=== PATIENT | male | born 1945 | race Caucasian/White ===

== ENCOUNTER 2020-04-11 02:08 | Observation (INO) | payer MEDICARE, OTHER ==
[~2020-04-11] VITALS: Ht 180.3 cm; Wt 98.0 kg
[~2020-04-11 02:08] MED LIST: AMLODIPINE BESYL5 MG PO; ASPIR-LOW81 MG PO; ATENOLOL-CHLOR1 EAC1 PO; BENAZEPRIL HCL40 MG PO; BETAMETHASONE D15 GM TOP; HUMIRA40 MG/0.8 IM; IBUPROFEN400 MG PO; LUPRON IM; OMEPRAZOLE40 MG PO; OTEZLA PO
--- OUTSIDE RECORDS SUMMARY | 2020-04-11 02:10 | XMS REPORT | Summary of Care ---
Author Author [facility] Organization [facility] Address Unknown Phone Unavailable Encounter HQ Raheem(FIN) [id number] Date(s): 10/15/18 - 10/15/18 [facility] [address] [place] [address]- Discharge Disposition: Home or Self Care Attending Physician: Kathe De León MD Vital Signs Most recent to 1 oldest [Reference Range]: Height 180.34 cm (10/15/18 10:04 AM) Temperature Oral 97.7 DegF [96.4-99.1 DegF] (10/15/18 10:04 AM) Blood Pressure 124/64 mmHg [90-140/60-90 mmHg] (10/15/18 10:04 AM) Respiratory Rate 14 BRMIN [14-20 BRMIN] (10/15/18 10:04 AM) Peripheral Pulse 65 bpm Rate [60-100 bpm] (10/15/18 10:04 AM) Weight 102.386 kg (10/15/18 10:04 AM) Body Mass Index 31.48 m2 (10/15/18 10:04 AM) Problem List Condition Effective Dates Status Health Status Informan t Benign Active hypertension(Confirm ed)1, 2 Body mass index 30+ 12/22/13 Active - obesity3, 4 Primary Active osteoarthritis of left knee(Confirmed) Diabetes Active mellitus(Confirmed) SOB (shortness of Active breath)(Confirmed) GERD Active (gastroesophageal reflux disease)(Confirmed) Hard of Active hearing(Confirmed) History of prostate Active cancer(Confirmed) History of left knee Active replacement(Confirme d) Right knee Active pain(Confirmed) Hyperlipemia, Active mixed(Confirmed) Obesity(Confirmed)5, Active 6 Prostate Active carcinoma(Confirmed) Psoriasis(Confirmed) Active 7, 8 RUQ abdominal Active pain(Confirmed) Rupture of rotator Active cuff of shoulder(Confirmed)9 Shoulder Active pain(Confirmed)10 Weight Active loss(Confirmed) 1Data migrated from [employer] on 04/05/15. 2Data migrated from [employer] on 04/05/15. 3Data migrated from [employer] on 04/05/15. 4Data migrated from [employer] on 04/05/15. 5Data migrated from [employer] on 04/05/15. 6Data migrated from [employer] on 04/05/15. 7Data migrated from [employer] on 04/05/15. 8Data migrated from [employer] on 04/05/15. 9right shoulder 10right Allergies, Adverse Reactions, Alerts Substance Reaction Severity Status acetaminophen-hydrocodone hallucinations Active NKFA Active Medications No Known Medications Results No data available for this section Immunizations Given and Recorded Vaccine Date Status Refusal Reason influenza virus vaccine, inactivated1 07/18/18 Given influenza virus vaccine, inactivated2 06/25/17 Given influenza virus vaccine, inactivated 08/25/15 G iven influenza virus vaccine, inactivated3 07/20/14 Given influenza virus vaccine, inactivated4 07/20/14 Given pneumococcal 13-valent vaccine5 06/25/17 Given Hx influenza vaccine-unspecified6 09/16/16 Torsten rded Hx pneumococcal vaccine 11/10/12 Recorded 1Result Comment: Patient waited 15 minutes, no allergic reaction noted. 2Result Comment: Patient waited 15 minutes after vaccine was administered, no allergic reaction noted. 3Result Comment: done. Migrated from OBS ; Data migrated from [employer] on 06/10/2015. 4Result Comment: fluzone high dose [[id number]]. Migrated from OBS ; Data migrated from [employer] on 06/10/2015. 5Result Comment: Patient waited 15 minutes after vaccine was administered, no allergic reaction noted. [facility] Procedures Procedure Date Related Diagnosis Body Site Status Procedure on prostate 2010 Completed Biopsy of prostate Completed Cataract surgery1 Completed Cryotherapy2 Completed Procedure on knee3, 4 Completed 1rt eye 2prostate 3left knee 4surgery 2017 Social History Social History Type Response Substance Abuse Use: None. Exercise Exercise frequency: Daily. Exercise type: Walking. Employment/School Status: Retired. Alcohol Current, Type Beer. Freque ncy: 1-2 times per week.1 Smoking Status Former smoker; Exposure to Tobacco Smoke None; Cigarette Smoking Last 365 Days No; Reg Smoking Cessation Counseli ng No2 entered on: 04/24/19 11 beer daily 2started smoking age 15 year quit 1992 used to smoke 1 pack/ day Assessment and Plan No data available for this section
--- OUTSIDE RECORDS SUMMARY | 2020-04-11 02:10 | XMS REPORT | Summary of Care ---
Author Author [facility] Organization [facility] Address Unknown Phone Unavailable Encounter AYDIN Maciel(FIN) [id number] Date(s): 10/11/17 - 10/11/17 [facility] [address], [address] [place], [place] [id number]- [phone] Discharge Disposition: Home or Self Care Attending Physician: Kathe De León MD Vital Signs Most recent to 1 oldest [Reference Range]: Height 180.34 cm (10/11/17 9:34 AM) Temperature Oral 97.5 DegF [96.4-99.1 DegF] (10/11/17 9:34 AM) Blood Pressure 103/69 mmHg [90-140/60-90 mmHg] (10/11/17 9:34 AM) Respiratory Rate 14 BRMIN [14-20 BRMIN] (10/11/17 9:34 AM) Peripheral Pulse 70 bpm Rate [60-100 bpm] (10/11/17 9:34 AM) Weight 100.057 kg (10/11/17 9:34 AM) Body Mass Index 30.77 m2 (10/11/17 9:34 AM) Problem List Condition Effective Dates Status Health Status Informan t Arthritis(Confirmed) Active Benign Active hypertension(Confirm ed)1, 2 Body mass index 30+ 2/ Active - obesity3, 4 Primary Active osteoarthritis of left knee(Confirmed) Diabetes Active mellitus(Confirmed) GERD Active (gastroesophageal reflux disease)(Confirmed) Hard of Active hearing(Confirmed) History of prostate Active cancer(Confirmed) History of left knee Active replacement(Confirme d) Hyperlipemia, Active mixed(Confirmed) Obesity(Confirmed)5, Active 6 Prostate [...] Substance Reaction Severity Status acetaminophen-hydrocodone hallucinations Active Medications Otezla 30 mg oral tablet 30 mg = 1 tab, PO, BID, 0 Refill(s) Start Date: 10/11/17 Status: Ordered Pepcid AC 10 mg oral tablet, chewable 10 mg = 1 tab, PO, TID, 0 Refill(s) Start Date: 10/11/17 Status: Ordered tramadol 50 mg oral tablet 50 mg = 1 tab, PO, BID, PRN pain, # 60 tab, 0 Refill(s) Start Date: 10/11/17 Stop Date: 10/12/18 Status: Ordered Results No data available for this section Immunizations Given and Recorded Vaccine Date Status Refusal Reason pneumococcal 13-valent vaccine1 06/25/17 Given influenza virus vaccine, inactivated2 06/25/17 Given influenza virus vaccine, inactivated 08/25/15 G iven influenza virus vaccine, inactivated3 07/20/14 Given influenza virus vaccine, inactivated4 07/20/14 Given Hx influenza vaccine-unspecified5 09/16/16 Torsten rded Hx pneumococcal vaccine 11/10/12 Recorded 1Result Comment: Patient waited 15 minutes after vaccine was administered, no allergic reaction noted. 2Result Comment: Patient waited 15 minutes after vaccine was administered, no allergic reaction noted. 3Result Comment: done. Migrated from OBS ; Data migrated from [employer] on 06/10/2015. 4Result Comment: fluzone high dose [[id number]]. Migrated from OBS ; Data migrated from [employer] on 06/10/2015. [facility] Procedures Procedure Date Related Diagnosis Body Site Procedure on prostate 2011 Biopsy of prostate Cataract surgery1 Cryotherapy2 Procedure on knee3, 4 1rt eye 2prostate 3left knee 4surgery 2017 Social History Social History Type Response Substance Abuse Use: None. Exercise Exercise duration: 0. Employment/School Status: Retired. Alcohol Past, Type Beer. Frequency : Daily.1 Smoking Status Former smoker; Exposure to Tobacco Smoke None; Cigarette Smoking Last 365 Days No; Reg Smoking Cessation Counseli ng No2 11 beer daily 2started smoking age 15 year quit 1992 used to smoke 1 pack/ day Assessment and Plan No data available for this section
--- OUTSIDE RECORDS SUMMARY | 2020-04-11 02:10 | XMS REPORT | Summary of Care ---
Author Author [facility] Organization [facility] Address Unknown Phone Unavailable Encounter HQ Raheem(FIN) [id number] Date(s): 01/09/18 - 01/09/18 [facility] [address] [place] [address] [phone] Discharge Disposition: Home or Self Care Attending Physician: Kathe De León MD Vital Signs Most recent to 1 oldest [Reference Range]: Height 180.34 cm (01/09/18 8:55 AM) Temperature Oral 97.1 DegF [96.4-99.1 DegF] (01/09/18 8:55 AM) Blood Pressure 87/59 mmHg [90-140/60-90 mmHg] *LOW* (01/09/18 8:55 AM) Respiratory Rate 14 BRMIN [14-20 BRMIN] (01/09/18 8:55 AM) Peripheral Pulse 75 bpm Rate [60-100 bpm] (01/09/18 8:55 AM) Weight 99.318 kg (01/09/18 8:55 AM) Body Mass Index 30.54 m2 (01/09/18 8:55 AM) Problem List Condition Effective Dates Status [...] Reaction Severity Status acetaminophen-hydrocodone hallucinations Active Medications No Known Medications Results No [...] Migrated from OBS ; Data migrated from [employer] on 06/10/2015. 4Result Comment: fluzone high dose [[id number]]. Migrated from OBS ; Data migrated from [employer] on 06/10/2015. 5Location History: [facility] Procedures Procedure Date Related Diagnosis Body Site Status Procedure on prostate 2010 Completed Biopsy of prostate Completed Cataract surgery1 Completed Cryotherapy2 Completed Procedure on knee3, 4 Completed 1rt eye 2prostate 3left knee 4surgery 2017 Social History Social History Type Response Substance Abuse Use: None. Exercise Exercise frequency: Daily. Exercise type: Walking. Employment/School Status: Retired. Alcohol Current, Type Beer. Freque ncy: Daily.1 Smoking Status Former smoker; Exposure to Tobacco Smoke None; Cigarette Smoking Last 365 Days No; Reg Smoking Cessation Counseli ng No2 entered on: 04/11/18 11 beer daily 2started smoking age 15 year quit 1992 used to smoke 1 pack/ day Assessment and Plan No data available for this section
--- OUTSIDE RECORDS SUMMARY | 2020-04-11 02:10 | XMS REPORT | Summary of Care ---
Author Author [facility] Address Unknown Phone Unavailable Encounter AYDIN Maciel(FIN) [id number] Date(s): 10/15/17 - 11/13/17 [facility] Discharge Disposition: Home or Self Care Attending Physician: Marcello Guidry MD Vital Signs No data available for this section Problem List Condition Effective Dates Status Health [...] Severity Status acetaminophen-hydrocodone hallucinations Active Medications No data available for this section Results No data available for this section [...] reaction noted. 3Result Comment: done. Migrated from [employer] ; Data migrated from [employer] on 06/10/2015. 4Result Comment: fluzone high dose [[id number]]. Migrated from [employer] ; Data migrated from [employer] on 06/10/2015. 5Location History: [facility] Procedures Procedure Date Related Diagnosis Body [...] Smoking Cessation Counseli ng No2 entered on: 10/11/17 11 beer daily 2started smoking age 15 year quit 1993 used to smoke 1 pack/ day Assessment and Plan No data available for this section
--- OUTSIDE RECORDS SUMMARY | 2020-04-11 02:10 | XMS REPORT | Summary of Care ---
Author Author [facility] Organization [facility] Address Unknown Phone Unavailable Encounter HQ Rivera_namrata(FIN) [id number] Date(s): 04/11/18 - 04/11/18 [facility] [address], [address] [place] [address]- [phone] Discharge Disposition: Home or Self Care Attending Physician: Kathe De León MD Vital Signs Most recent to 1 oldest [Reference Range]: Height 180.34 cm (04/11/18 9:45 AM) Temperature Oral 97.2 DegF [96.4-99.1 DegF] (04/11/18 9:45 AM) Blood Pressure 98/58 mmHg [90-140/60-90 mmHg] (04/11/18 9:45 AM) Respiratory Rate 14 BRMIN [14-20 BRMIN] (04/11/18 9:45 AM) Peripheral Pulse 65 bpm Rate [60-100 bpm] (04/11/18 9:45 AM) Weight 99.659 kg (04/11/18 9:45 AM) Body Mass Index 30.64 m2 (04/11/18 9:45 AM) Problem List Condition Effective Dates Status [...] from OBS ; Data migrated from [employer] on 06/10/2015. 4Result Comment: fluzone high dose [[id number]]. Migrated from OBS ; Data migrated from [employer] on 06/10/2015. 5Location History: [facility] Procedures Procedure Date Related Diagnosis [...]
--- OUTSIDE RECORDS SUMMARY | 2020-04-11 02:10 | XMS REPORT | Continuity of Care Document ---
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 127 07/16/2013 [facility] Systolic (mm Hg) 141 07/16/2013 [facility] Diastolic (mm Hg) 81 07/16/2013 [facility] Systolic (mm Hg) 141 07/16/2013 [facility] Diastolic (mm Hg) 77 07/16/2013 [facility] Respitory Rate 14 07/16/2013 [facility] Respitory Rate 12 07/16/2013 [facility] Heart Rate 70 07/16/2013 [facility] Height 180.34 cm 07/10/2013 [facility] Weight 97.273 07/10/2013 [facility] Heart Rate 68 07/10/2013 [facility] Respitory Rate 18 07/10/2013 [facility] Temperature Oral (F) 97.6 F 07/10/2013 [facility] Encounters Location Location Details Encounter Type Encounter Number Reason For Visit Attending Provider ADM Date DC Date Status Source OD [id number] 715.0 - GENERAL OSTEOAR KATARINA FANG 06/16/2013 Active [facility] [place] [facility] DS [id number] 840.4/726.2/726.1 0/719.41/840.7 KATARINA FANG 07/16/2013 07/16/2013 Active [facility] TH [id number] RT SHOULDER KATARINA FANG 08/03/2013 Active [facility] [place] TH [id number] RT SHOULDER KATARINA FANG 09/07/2013 Active [facility] [place] [id number] RT SHOULDER KATARINA FANG 10/07/2013 Active [facility] [place] Outpatient [id number] KATHE KHANNA 06/29/2015 Active [facility] [id number] EVELYNAO CLEMENCIA 08/25/2015 Active [facility] Outpatient [id number] KATHE KHANNA 10/10/2015 [facility] Outpatient [id number] KATHE KHANNA 11/07/2015 [facility] Outpatient [id number] KATHE KHANNA 12/27/2015 Active [facility] [place] Outpatient [id number] KATHE KHANNA 03/26/2016 Active [facility] [place] [facility]patient [id number] KATHE KHANNA 06/18/2016 Active [facility] [place] [facility] Diag Services [id number] Marcello Guidry 08/16/2016 08/17/2016 [facility] [place] Outpatient [id number] KATHE KHANNA 09/18/2016 Active [facility] [place] OP Therapy Patients [id number] Marcello Guidry 09/21/2016 10/21/2016 [facility] [place] [facility] [place] [facility] [id number] Marcello Guidry 10/25/2016 11/24/2016 [facility] [place] Outpatient [id number] KATHE KHANNA 12/18/2016 Active [facility] [id number] KATHE KHANNA 03/19/2017 Active [facility] Outpatient [id number] KATHE KHANNA 06/25/2017 Active [facility] Outpatient [id number] KATHE KHANNA 07/31/2017 Active [facility] Outpatient [id number] KATHE KHANNA 09/03/2017 Active [facility] Outpatient [id number] KATHE KHANNA 10/11/2017 Active [facility] Outpatient [id number] Kathe Khanna 10/11/2017 10/12/2017 [facility] [place] OP Therapy Patients [id number] Marcello Guidry 10/15/2017 11/14/2017 [facility] [place] [facility] [place] [facility] [id number] Marcello Guidry 11/15/2017 12/15/2017 [facility] [place] Outpatient [id number] KATHE KHANNA 12/10/2017 Active [facility] Outpatient [id number] Kathe Khanna 12/10/2017 12/11/2017 [facility] [place] OP Therapy Patients [id number] Marcello Guidry 12/16/2017 01/15/2018 [facility] [place] Outpatient [id number] KATHE KHANNA 01/09/2018 Active [facility] Outpatient [id number] Kathe Khanna 01/09/2018 01/10/2018 [facility] Group [facility] Primary [facility] Phone Message [id number] 01/23/2018 01/25/2018 [facility] Outpatient [id number] KATHE KHANNA 04/11/2018 Active [facility] Outpatient [id number] Kathe Khanna 04/11/2018 04/12/2018 [facility] Outpatient [id number] KATHE KHANNA 04/28/2018 Active [facility] Primary [facility] Outpatient [id number] Kathe Khanna 04/28/2018 04/29/2018 [facility] Outpatient [id number] KATHE KHANNA 07/18/2018 Active [facility] Outpatient [id number] Kathe Khanna 07/18/2018 07/19/2018 [facility] Outpatient [id number] KATHE KHANNA 10/15/2018 Active [facility] Primary [facility] Outpatient [id number] Kathe Khanna 10/15/2018 10/16/2018 [facility] Primary [facility] Phone Message [id number] 01/12/2019 01/14/2019 [facility] Outpatient [id number] KATHE KHANNA 01/21/2019 Active [facility] Outpatient [id number] Kathe Khanna 01/21/2019 01/22/2019 [facility] Outpatient [id number] Kathe Khanna 04/24/2019 Active [facility] Primary [facility] Outpatient [id number] Kathe Khanna 04/24/2019 04/25/2019 [facility] Primary [facility] Phone Message [id number] 05/13/2019 05/15/2019 [facility] Procedures Procedure Code Date Perfomer Comments Source Procedure on prostate [id number] 11/04/2010 [facility] O[facility] [place],[facility] [place] Prostatectomy [id number] 11/04/2010 [facility] Biopsy of prostate [id number] [facility], [facility] [place],[facility] [place] Cataract surgery<sup>1</sup> 1 [id number] rt eye [facility], [facility] [place],[facility] [place] Cryotherapy<sup>2</sup> [id number] 00 prostate [facility], [facility] [place],[facility] [place] Procedure on knee<sup>3, 4</sup> [id number] left knees urgery 2017 [facility] [place] Cryotherapy [id number] [facility] Procedure on knee<sup>3</sup> [id number] left knee [facility] Joce Assessment and Plan No Data Provided for This Section Plan of Care No Data Provided for This Section Social History Social History Date Source Social History TypeResponse Substance Abuse Use: None. Exercise Exercise frequency: Daily. Exercise type: Walking. Employment/School Status: Retired. Alcohol Current, Type Beer. Frequency: 1-2 times per week.1 Smoking Status Former smoker; Exposure to Tobacco Smoke None; Cigarette Smoking Last 365 Days No; Reg Smoking Cessation Counseling No2 entered on: 04/24/19 11 beer [email or web address] smoking age 15 yea r quit 1992 used to smoke 1 pack/ day 04/24/2019 [facility] Social History TypeResponse Substance Abuse Use: None. Exercise Exercise frequency: Daily. Exercise type: Walking. Employment/School Status: Retired. Alcohol Current, Type Beer. Frequency: Daily.1 Smoking Status Former smoker; Exposure to Tobacco Smoke None; Cigarette Smoking Last 365 Days No; Reg Smoking Cessation Counseling No2 entered on: 04/11/18 11 beer [id number] smoking age 15 yea r quit 1993 used to smoke 1 pack/ day 04/11/2018 BRITTNY Hobosn Social History TypeResponse Substance Abuse Use: None. Exercise Exercise type: yard work. Employment/School Status: Retired. Alcohol Past Smoking Status Former smoker; Exposure to Tobacco Smoke None; Cigarette Smoking Last 365 Days No; Reg Smoking Cessation Counseling No1 1started smoking age 15 year quit 1992 u sed to smoke 1 pack/ day 06/18/2016 TEN Hobson Family History No Data Provided for This Section Advance Directives No Data Provided for This Section Functional Status No Data Provided for This Section
--- OUTSIDE RECORDS SUMMARY | 2020-04-11 02:10 | XMS REPORT | Summary of Care ---
Author Author [facility] Address Unknown Phone Unavailable Encounter AYDIN Maciel(LUCIUS) [id number] Date(s): 11/15/17 - 12/14/17 [facility] Encounter Diagnosis Presence of left artificial knee joint (Final) - 12/18/17 Pain in left knee (Final) - Muscle weakness (generalized) (Final) - Difficulty in walking, not elsewhere classified (Final) - Stiffness of unspecified joint, not elsewhere classified (Final) - Discharge Disposition: Home or Self Care Attending [...] reaction noted. 3Result Comment: done. Migrated from [employer] ; Data migrated from [employer] on 06/10/2015. 4Result Comment: fluzone high dose [[id number]]. Migrated from [employer] ; Data migrated from [employer] on 06/10/2015. [facility] Procedures Procedure Date Related Diagnosis Body Site Status Procedure on prostate 2010 Completed Biopsy of prostate Completed Cataract surgery1 Completed Cryotherapy2 Completed Procedure on knee3, 4 Completed 1rt eye 2prostate 3left knee 4surgery 2017 Social History Social History Type Response Substance Abuse Use: None. Exercise Exercise duration: 0. Employment/School Status: Retired. Alcohol Current, Type Beer. Freque ncy: Daily.1 Smoking Status Former smoker; Exposure to Tobacco Smoke None; Cigarette Smoking Last 365 Days No; Reg Smoking Cessation Counseli ng No2 entered on: 01/09/18 11 beer daily 2started smoking age 15 year quit 1993 used to smoke 1 pack/ day Assessment and Plan No data available for this section
--- OUTSIDE RECORDS SUMMARY | 2020-04-11 02:10 | XMS REPORT | Summary of Care ---
Author Author [facility] Organization [facility] Address Unknown Phone Unavailable Encounter HQ Raheem(FIN) [id number] Date(s): 05/13/19 - 05/14/19 [facility] [address] [address]- Vital Signs No data available for this [...] acetaminophen-hydrocodone hallucinations Active NKFA Active Medications No data available for this [...] reaction noted. 3Result Comment: done. Migrated from [employer] ; Data migrated from [employer]endorse on 06/10/2015. 4Result Comment: fluzone high dose [[id number]]. Migrated from OBS ; Data migrated from [employer]endorse on 06/10/2015. 5Result Comment: Patient waited 15 minutes after vaccine was administered, no allergic reaction noted. 6Location History: [facility] Procedures Procedure Date Related [...]
--- OUTSIDE RECORDS SUMMARY | 2020-04-11 02:10 | XMS REPORT | Summary of Care ---
Author Author [facility] Address Unknown Phone Unavailable Encounter AYDIN Maciel(FIN) [id number] Date(s): 12/16/17 - 01/14/18 [facility] Encounter Diagnosis Presence of left artificial knee joint (Final) - 01/19/18 Stiffness of left knee, not elsewhere classified (Final) - Muscle weakness (generalized) (Final) - [...] Migrated from OBS ; Data migrated from [facility] on 06/10/2015. 4Result Comment: fluzone high dose [[id number]]. Migrated from OBS ; Data migrated from [facility] on 06/10/2015. [facility] Procedures Procedure Date Related Diagnosis Body [...]
--- OUTSIDE RECORDS SUMMARY | 2020-04-11 02:10 | XMS REPORT | Summary of Care ---
Author Author [facility] Address Unknown Phone Unavailable Encounter AYDIN Maciel(LUCIUS) [id number] Date(s): 10/15/17 - 11/13/17 [facility] Encounter Diagnosis Presence of left artificial knee joint (Final) - 11/18/17 Pain in left knee (Final) - Muscle weakness (generalized) (Final) - Difficulty in walking, not elsewhere classified (Final) - Stiffness of unspecified joint, not elsewhere classified (Final) - Essential (primary) hypertension (Final) - Discharge Disposition: Home or Self [...] Migrated from OBS ; Data migrated from [employer] on 06/10/2015. 4Result Comment: fluzone high dose [[id number]]. Migrated from OBS ; Data migrated from [employer] on 06/10/2015. 5Location History: [facility] Procedures Procedure Date Related Diagnosis Body [...]
--- OUTSIDE RECORDS SUMMARY | 2020-04-11 02:10 | XMS REPORT | Summary of Care ---
Author Author [facility] Organization [facility] Address Unknown Phone Unavailable Encounter AYDIN Maciel(FIN) [id number] Date(s): 12/10/17 - 12/10/17 [facility] [address], [address] [place], [place] [address]- [phone] Discharge Disposition: Home or Self Care Attending Physician: Kathe De León MD Vital Signs Most recent to 1 oldest [Reference Range]: Height 180.34 cm (12/10/17 3:07 PM) Temperature Oral 97.9 DegF [96.4-99.1 DegF] (12/10/17 3:07 PM) Blood Pressure 109/67 mmHg [90-140/60-90 mmHg] (12/10/17 3:07 PM) Respiratory Rate 14 BRMIN [14-20 BRMIN] (12/10/17 3:07 PM) Peripheral Pulse 81 bpm Rate [60-100 bpm] (12/10/17 3:07 PM) Weight 98.352 kg (12/10/17 3:07 PM) Body Mass Index 30.24 m2 (12/10/17 3:07 PM) Problem List Condition Effective Dates Status Health [...] Reaction Severity Status acetaminophen-hydrocodone hallucinations Active Medications tramadol 50 mg oral tablet 50 mg = 1 tab, PO, Daily, PRN pain, # 30 tab, 0 Refill(s) Start Date: 12/10/17 Stop Date: 12/10/18 Status: Ordered Results No data available for [...] from OBS ; Data migrated from [employer] on 06/10/2015. 4Result Comment: fluzone high dose [[id number]]. Migrated from OBS ; Data migrated from [employer] on 06/10/2015. 5Location History: [facility] Procedures Procedure Date Related Diagnosis [...]
--- OUTSIDE RECORDS SUMMARY | 2020-04-11 02:10 | XMS REPORT | Summary of Care ---
Author Author [facility] Organization [facility] Address Unknown Phone Unavailable Encounter AYDIN Maciel(FIN) [id number] Date(s): 07/18/18 - 07/18/18 [facility] [address] [place] [address]- Discharge Disposition: Home or Self Care Attending Physician: Kathe De León MD Vital Signs Most recent to 1 oldest [Reference Range]: Height 180.34 cm (07/18/18 9:08 AM) Temperature Oral 97.0 DegF [96.4-99.1 DegF] (07/18/18 9:08 AM) Blood Pressure 105/67 mmHg [90-140/60-90 mmHg] (07/18/18 9:08 AM) Respiratory Rate 14 BRMIN [14-20 BRMIN] (07/18/18 9:08 AM) Peripheral Pulse 65 bpm Rate [60-100 bpm] (07/18/18 9:08 AM) Weight 100.909 kg (07/18/18 9:08 AM) Body Mass Index 31.03 m2 (07/18/18 9:08 AM) Problem List Condition Effective Dates Status Health Status Informan t Benign Active hypertension(Confirm ed)1, 2 Body mass index 30+ 2 Active - obesity3, 4 Primary Active osteoarthritis [...] on 06/10/2015. 4Result Comment: fluzone high dose [[id number]]. Migrated from OBS ; Data migrated from [employer] on 06/10/2015. 5Result Comment: Patient waited 15 minutes after vaccine was administered, no allergic reaction noted. 6Location History: [facility] Procedures Procedure Date Related Diagnosis Body [...] Smoking Cessation Counseli ng No2 entered on: 01/21/19 11 beer daily 2started smoking age 15 year quit 1992 used to smoke 1 pack/ day Assessment and Plan No data available for this section
--- OUTSIDE RECORDS SUMMARY | 2020-04-11 02:11 | XMS REPORT | CCD ---
Author Author [facility] Address Unknown Phone Unavailable Care Team Providers Care Advertising Manager Name Role Phone Colin Moreno CP Allergies, Adverse Reactions, Alerts Substance Reaction Status NKDA Active Problem List Condition Effective Dates Status Arthritis Active Dentures1 Active Hard of hearing Active Hypertension Active Prostate carcinoma < 2010 Resolved Psoriasis Active Radiation Resolved Rupture of rotator cuff of shoulder2 Active Shoulder pain3 Active 1full upper and lower 2right shoulder 3right
--- OUTSIDE RECORDS SUMMARY | 2020-04-11 02:11 | XMS REPORT | Summary of Care ---
Author Author [facility] Organization [facility] Address Unknown Phone Unavailable Encounter AYDIN Maciel(LUCIUS) [id number] Date(s): 01/21/19 - 01/21/19 [facility] [address] [address]- Discharge Disposition: Home or Self Care Attending Physician: Kathe De León MD Vital Signs Most recent to 1 oldest [Reference Range]: Height 180.34 cm (01/21/19 10:01 AM) Temperature Oral 96.9 DegF [96.4-99.1 DegF] (01/21/19 10:01 AM) Blood Pressure 128/78 mmHg [90-140/60-90 mmHg] (01/21/19 10:01 AM) Respiratory Rate 16 BRMIN [14-20 BRMIN] (01/21/19 10:01 AM) Peripheral Pulse 67 bpm Rate [60-100 bpm] (01/21/19 10:01 AM) Weight 104.091 kg (01/21/19 10:01 AM) Body Mass Index 32.01 m2 (01/21/19 10:01 AM) Problem List Condition Effective Dates Status [...] on 06/10/2015. 4Result Comment: fluzone high dose [[id number]]. Migrated from OBS ; Data migrated from [employer] on 06/10/2015. 5Result Comment: Patient waited 15 minutes after vaccine was administered, no allergic reaction noted. 6Location History: [facility] Procedures Procedure Date Related Diagnosis Body [...]
--- OUTSIDE RECORDS SUMMARY | 2020-04-11 02:11 | XMS REPORT | Summary of Care ---
Author Author [facility] Address Unknown Phone Unavailable Encounter AYDIN Maciel(FIN) [id number] Date(s): 09/21/16 - 10/20/16 [facility] Discharge Disposition: Home or Self Care Attending Physician: Marcello Guidry MD Vital Signs No data available for this section Problem List Condition Effective Dates Status Health Status Informan t Arthritis(Confirmed) Active Benign Active hypertension1, 2 Body mass index 30+ 12/22/13 Active - obesity3, 4 Hard of Active hearing(Confirmed) History of prostate Active cancer(Confirmed) Hyperlipidemia5, 6 03/23/14 Active Impaired fasting Active glucose(Confirmed) Obesity7, 8 Active Prostate Active carcinoma(Confirmed) Psoriasis9, 10 Active RUQ abdominal Active pain(Confirmed) Rupture of rotator Active cuff of shoulder(Confirmed)1 1 Shoulder Active pain(Confirmed)12 1Data migrated from [employer] on 04/05/15. 2Data migrated from [employer] on 04/05/15. 3Data migrated from [employer] on 04/05/15. 4Data migrated from [employer] on 04/05/15. 5Data migrated from [employer] on 04/05/15. 6Data migrated from [employer] on 04/05/15. 7Data migrated from [employer] on 04/05/15. 8Data migrated from [employer] on 04/05/15. 9Data migrated from [employer] on 04/05/15. 10Data migrated from [employer] on 04/05/15. 11right shoulder 12right Allergies, Adverse Reactions, Alerts Substance Reaction Severity Status NKDA Active Medications No data available for this section Results No data available for this section Immunizations Given and Recorded Vaccine Date Status Refusal Reason Hx influenza vaccine-unspecified1 09/16/16 Torsten rded influenza virus vaccine, inactivated 08/25/15 G iven influenza virus vaccine, inactivated2 07/20/14 Given influenza virus vaccine, inactivated3 07/20/14 Given 1Location History: [facility] 2Result Comment: done. Migrated from OBS ; Data migrated from [employer] on 06/10/2015. 3Result Comment: fluzone high dose [[id number]]. Migrated from OBS ; Data migrated from [employer] on 06/10/2015. Procedures Procedure Date Related Diagnosis Body Site Procedure on prostate 2010 Biopsy of prostate Cataract surgery1 Cryotherapy2 Procedure on knee3 1rt eye 2prostate 3left knee Social History Social History Type Response Substance Abuse Use: None. Exercise Exercise type: Walking. Employment/School Status: Retired. Alcohol Past Smoking Status Former smoker; Exposure to Tobacco Smoke None; Cigarette Smoking Last 365 Days No; Reg Smoking Cessation Counseli nelson No1 1started smoking age 15 year quit 1992 used to smoke 1 pack/ day Assessment and Plan No data available for this section
--- OUTSIDE RECORDS SUMMARY | 2020-04-11 02:11 | XMS REPORT | Continuity of Care Document ---
Author Author [facility] t Organization [facility] Address [address] [place] [address] Phone Unavailable Care Team Providers Care Puffer Tender Name Role Phone Tamica De Leónkaren Attphys Kayla Newton Attphys MARCELLO NEWTON Attphys Unavailable MARY HERNANDEZ Attphys Unavailable MARCELLO NEWTON Admphys Unavailable MARY HERNANDEZ Admphys Unavailable Payers Payer Name Policy Type Policy Number Effective Date Expiration Date S ource Problems Condition Name Condition Details Condition Category Status Onset Date Resolution Date Last Treatment Date Treating Clinician Comments Source S/P LT TKA S/P LT TKA Active 11/04/2017 [facility] [place] Diagnosis Active 2017-11-04 08:00:00 2017-11-15 13:26:00 Niraj Oconnor LEFT KNEE LEFT KNEE Active 09/09/2017 [facility] [place] Diagnosis Active 2017-09-09 08:00:00 2017-12-18 16:58:00 Niraj Oconnor S83.242A - "OTH TEAR OF MEDIAL MENISCUS, S83.242A - "OTH TEAR OF MEDIAL MENISCUS, Active 08/14/2016 [facility] [place] Diagnosis Active 2016-08-14 00:01:00 2016-08-16 08:01:00 Anna Oconnor Hyperlipidemia (disorder) Hype rlipidemia (disorder) Active 03/23/2014 Problem 11/26/2016 Data migrated from [employer] on 04/05/15.Data migrated from [employer] on 04/05/15. [facility] [place], [facility] [place] Problem Active 2014-03-23 00:00:00 2016-11-26 01:26:31 [facility] Body mass index 30+ - obesity (finding) Body mass index 30+ - obesity (finding) Active 12/22/2013 Problem 05/16/2019 Data migrated from [employer] on 04/05/15.Data migrated from [employer] on 04/05/15. Medical Group, [facility] [place], [facility] [place] Problem Active 201 02-03-18 00:00:00 2019-05-16 23:54:13 [facility] Her strong 840.4/726.2/726.10/719.41/840.7 840.4/726.2/726.10/719.41/840.7 Active 07/02/2013 [facility] Active 2013-07-02 00:00:00 2013-07-20 12:41:00 M shaniqua Oconnor UNK UNK Active 07/02/2013 [place] [facility] Active 2013-07-02 00:00:00 2013-07-07 13:28:00 [facility] 715.0 - GENERAL OSTEOAR 715. 0 - GENERAL OSTEOAR Active 06/08/2013 [facility] [place] Diagnosis Active 2013-06-08 00:01:00 2013-06-16 12:49:00 Niraj Oconnor Pain in left knee Pain in left knee 03/22/2018 [facility] [place] Problem 2018-03-22 11:12:35 [facility] [place] Muscle weakness (generalized) Muscle weakness (generalized) 04/22/2018 [facility] [place] Problem 2018-04 11:46:09 [facility] [place] Difficulty in walking, not elsewhere classified Difficulty in walking, not elsewhere classified 04/22/2018 [facility] [place] Problem 2018-04-22 11:46:09 [facility] Stiffness of unspecified joint, not elsewhere classifi ed Stiffness of unspecified joint, not elsewhere classified 04/22/2018 [facility] [place] Problem 2018-04-22 11:46:09 [facility] Essential (primary) hypertension Essential (primary) hypertension 02/19/2018 [facility] [place] Problem 14:34:19 [facility] Stiffness of left knee, not elsewhere classified Stiffness of left knee, not elsewhere classified 04/22/2018 [facility] [place] Problem 2018-04-22 11:46:09 [facility] Radiation (physical force) Rad iation (physical force) Resolved Problem 11/07/2013 [facility] [place] Problem Resolved 2013-11-07 21:12:03 [facility] Prostate carcinoma Pros thompson carcinoma Resolved Problem 07/18/2013 [facility] Problem Resolved 2013-07-18 20:52:49 [facility] Radiation Radi ation Resolved Problem 07/18/2013 [facility] Problem Resolved 2013-07-18 20:52:49 M shaniqua Oconnor Arthritis (disorder) Arth ritis (disorder) Active Problem 11/16/2017 [facility] [place] Problem Active 2017-11-16 08:01:56 [facility] Benign hypertension (disorder) Benign hypertension (disorder) Active Problem 05/16/2019 Data migrated from [employer] on 04/05/15.Data migrated from [employer] on 04/05/15. [facility] [place] Problem Active 2019-05-16 23:54:13 Niraj Oconnor Osteoarthritis of knee (disorder) Osteoarthritis of knee (disorder) Active Problem 05/16/2019 [facility] [place] Problem Active 2019-05-16 23:54:13 Sally Oconnor Diabetes mellitus (disorder) D iabetes mellitus (disorder) Active Problem 05/16/2019 [facility] [place] Problem Active 2019-05-16 23:54:13 Sally Oconnor Dyspnea (finding) Dysp benji (finding) Active Problem 05/16/2019 [facility] [place] Problem Active 2019-05-16 23:54:13 [facility] [place] Gastroesophageal reflux disease (disorder) Gastroesophageal reflux disease (disorder) Active Problem 05/16/2019 [facility] [place] Problem Active 2019-05-16 23:54:13 Niraj Oconnor Hearing loss (finding) Hear ing loss (finding) Active Problem 05/16/2019 [facility] [place] Problem Active 2019-05-16 23:54:13 Memnetta Oconnor History of malignant neoplasm of prostate (situation) History of malignant neoplasm of prostate (situation) Active Problem 05/16/2019 [facility], OPIWard [place], [facility] [place] Problem Active 2019-05-16 23:54:13 Niraj Oconnor History of operative procedure on knee (situation) History of operative procedure on knee (situation) Active Problem 05/16/2019 [facility], [facility] [place] Problem Active 2019-05-16 23:5 4:13 [facility] [place] Knee pain (finding) Knee pain (finding) Active Problem 05/16/2019 Medical Group Problem Active 2019-05-16 23:54:13 Niraj Oconnor Mixed hyperlipidemia (disorder) Mixed hyperlipidemia (disorder) Active Problem 05/16/2019 [facility], [facility] [place] Problem Active 2019-05-16 23:54:13 Sally Oconnor Obesity (disorder) Obes ity (disorder) Active Problem 05/16/2019 Data migrated from [employer] on 04/05/15.Data migrated from [employer] on 04/05/15. Medical [facility], TEN [place], [facility] [place] Problem Active 2019-05-16 23:54:13 Memnetta Oconnor Carcinoma of prostate (disorder) Carcinoma of prostate (disorder) Active Problem 05/16/2019 [facility], [facility] [place], [facility] [place] Problem Active 2019-05-16 23:54:13 Jonathan Oconnor Psoriasis (disorder) Psor iasis (disorder) Active Problem 05/16/2019 Data migrated from [employer] on 04/05/15.Data migrated from [employer] on 04/05/15. [facility], [facility] [place], [facility] [place] Problem Active 2019-05-16 23:54:13 Sally Oconnor Right upper quadrant pain (finding) Right upper quadrant pain (finding) Active Problem 05/16/2019 [facility], [facility] [place], [facility] [place] Problem Active 2019-05-16 23:54:13 Jonathansukhdeep Oconnor Rotator cuff syndrome (disorder) Rotator cuff syndrome (disorder) Active Problem 05/16/2019 right shoulder [facility] [place], [facility] [place] Problem Active 2019-05-16 23:54:13 Niraj Oconnor Shoulder pain (finding) Shou lder pain (finding) Active Problem 05/16/2019 right [facility], [facility] [place] Problem Active 2019-05-16 23:54:13 Sally iamanuela Oconnor Weight loss finding (finding) Weight loss finding (finding) Active Problem 05/16/2019 [facility] [place] Problem Active 2019-05-16 23:54:13 Blueor iamanuela Oconnor Denture, device (physical object) Denture, device (physical object) Active Problem 11/07/2013 1full upper and lower [facility] [place] Problem Active 2013-11-07 21:12:03 Jonathan rial [place] Hypertensive disorder, systemic arterial (disorder) Hypertensive disorder, systemic arterial (disorder) Active Problem 11/07/2013 [facility] [place] Problem Active 2013-11-07 21:12:03 Niraj Oconnor Arthritis Arth ritis Active Problem 07/18/2013 [place] Problem Active 2013-07-18 20:52:49 Me car Oconnor Dentures [place] ures Active Problem 07/18/2013 1full upper and lower [facility] Problem Active 2013-07-18 20:52:49 Niraj Oconnor Hard of hearing Hard of hearing Active Problem 07/18/2013 [facility] Problem Active 2013-07-18 20:52:49 Niraj Oconnor Hypertension Hype rtension Active Problem 07/18/2013 [facility] Problem Active 2013-07-18 20:52:49 Wy car Oconnor Psoriasis Psor iasis Active Problem 07/18/2013 [facility] Problem Active 2013-07-18 20:52:49 Wy car Oconnor Rupture of rotator cuff of shoulder Rupture of rotator cuff of shoulder Active Problem 07/18/2013 2right shoulder [place] Problem Active 2013-07-18 20:52:49 Sally Oconnor Shoulder pain Shou lder pain Active Problem 07/18/2013 3right [place] Problem Active 2013-07-18 20:52:49 Niraj Oconnor Impaired fasting glycaemia (disorder) Impaired fasting glycaemia (disorder) Active Problem 11/26/2016 [facility] [place] Problem Active 2016-11-26 01:26:31 Niraj Oconnor RT SHOULDER RT S HOULDER Active [facility] [place] Diagnosis Active 2013-10-07 09:56:00 Niraj Oconnor Presence of left artificial knee joint Presence of left artificial knee joint 01/20/2018 04/22/2018 MH BRITTNY [place] Problem 2018-01-20 02:59:06 2018-04-22 11:46:09 2018-04-22 11:46:09 M shaniqua Oconnor Allergies, Adverse Reactions, Alerts Allergy Name Allergy Type Status Severity Reaction(s) Onset Date Inacti ve Date Treating Clinician Comments Source No Known Allergies DA Active U 2015-03-07 00:00:00 [facility] acetaminophen-hydrocodone acetaminophen-hydrocodone Active [facility] [place] NKFA NKFA Active [facility] karyn Social History Social Habit Start Date Stop Date Quantity Comments Source Social History 2016-06-18 16:28:58 2016-06-18 16:28:58 [facility] [place] Medications Ordered Medication Name Filled Medication Name Start Date Stop Da te Current Medication? Ordering Clinician Indication Dosage Frequency Signature (SIG) Comments Components Source solifenacin succinate 5 MG Oral Tablet [VESICARE] 2018-04-28 15:56:00 Yes 5 mg = 1 tab, PO, Daily, 0 Refill(s) [facility] [place] bicalutamide 50 mg oral tablet 2018-04-28 15:56:00 Yes 50 mg = 1 tab, PO, Q24H, 0 Refill(s) [facility] celena tramadol hydrochloride 50 MG Oral Tablet 2017-12-10 21:44:29 Yes 50 mg = 1 tab, PO, Daily, PRN pain, # 30 tab, 0 Refill(s) [facility] tramadol hydrochloride 50 MG Oral Tablet 2017-10-11 16:12:00 Yes 50 mg = 1 tab, PO, BID, PRN pain, # 60 tab, 0 Refill(s) [facility] Famotidine 10 MG Chewable Tablet [Pepcid] 2017-10-11 15:35:00 Yes 10 mg = 1 tab, PO, TID, 0 Refill(s) Jyotsna Mares apremilast 30 MG Oral Tablet [Otezla] 2017-10-11 15:35:00 Y es 30 mg = 1 tab, PO, BID, 0 Refill(s) [facility] Ric boss ketorolac 30 mg/mL injectable solution 2013-07-16 15:00:00 No Colin Dee 60 mg, Route: IM , ONCE, Dosing Weight 97.273, kg, Start date: 07/16/13 10:00:00, Stop date: 07/16/13 10:00:00 [facility] 2013-07-16 14:34:00 No Nisha Palacios 1,000 mg, Route: IV, Drug form: INJ, ONCE, Dosing Weight 97.273, kg, PRN Pain, for > or = 50 kg, Start date: 07/16/13 9:34:00 [facility] flumazenil 2013-07-16 14:05:00 No Poncho Tompkins Mcwilliams 0.2 mg, Route: IVP, PRN, Dosing Weight 97.273, kg, PRN Benzodiazepine Reversal, Initial dose, Start date: 07/16/13 9:05:00, Duration: 30 day, Stop date: 08/15/13 9:04:00 [facility] naloxone 2013-07-16 14:05:00 No Poncho Tompkins Mcwilliams 0.04 mg, Route: IVP, Q2MIN, Dosing Weight 97.273, kg, PRN Narcotic Reversal, Start date: 07/16/13 9:05:00, Duration: 8 doses or times, Stop date: Limited # of times [facility] ondansetron 2013-07-16 14:05:00 No Poncho Tompkins Mcwilliams 4 mg, Route: IVP, ONCE, Dosing Weight 97.273, kg, PRN Nausea & Vomiting, Start date: 07/16/13 9:05:00 [facility] metoprolol 2013-07-16 14:05:00 No Poncho Mcwilliams 1 mg, Route: IVP, Q5Min, Dosing Weight 97.273, kg, PRN Elevated BP, Start date: 07/16/13 9:05:00, Duration: 5 doses or times, Stop date: Limited # of times [facility] acetaminophen-hydrocodone 325 mg-5 mg oral tablet 14:05:00 No Poncho Mcwilliams 2 tab, Route: PO, Dosing Weight 97.273, kg, Q4H, PRN Pain Score 4-6, Start date: 07/16/13 9:05:00, Duration: 30 day, Stop date: 08/15/13 9:04:00 [facility] fentanyl 2013-07-16 14:05:00 No Poncho Tompkins Mcwilliams 25 microgram, Route: IVP, Q5Min, Dosing Weight 97.273, kg, PRN Pain Score 4-6, Start date: 07/16/13 9:05:00, Duration: 4 doses or times, Stop date: Limited # of times [facility] [place] hydromorphone 2013-07-16 14:05:00 No Poncho Mcwilliams 0.5 mg, Route: IVP, Q5Min, Dosing Weight 97.273, kg, PRN Pain Score 7-10, Start date: 07/16/13 9:05:00, Duration: 5 doses or times, Stop date: Limited # of times [facility] ropivacaine 0.2% in NS - site 1 550 mL 2013-07-16 14:05:00 No Poncho Mcwilliams Dosing: Per Nerv e Block Dosing Order, Route: NERVE BLOCK, Start date: 07/16/13 9:05:00 550 mL, Dosing Weight 97.273, kg, Duration: 30 day, Stop date: 08/15/13 9:04:00 [facility] [place] Ancef + Sodium Chloride 0.9% IV 100 mL 2013-07-16 12:40:00 No Colin Dee 1 gm, Route: IVP B, ONCE, Dosing Weight 97.273, kg, Start date: 07/16/13 7:40:00, Duration: 1 doses or times, Stop date: 07/16/13 7:40:00 [facility] Humira Pen 40 mg/0.8 mL subcutaneous solution 2013-07-16 12:36:5 0 Yes 40 mg, 0.8 ml, SUB-Q, q2wk, monthly, 1 kit, Substituti on Allowed, KITmonthly [facility] Lactated Ringers Injection IV 1000 mL 2013-07-16 12:32:00 No Canh Vu Palacios 1,000 mL, Rate: 25 m l/hr, Infuse over: 40 hr, Route: IV, Dosing Weight 97.273 kg, Total Volume: 1,000, Start date: 07/16/13 7:32:00, Duration: 30 day, Stop date: 08/15/13 7:31:00 Niraj strong [place] 2013-07-10 13:58:11 Yes TOP , Daily, Substitution Allowed [facility] Herm[facility] 5/325 oral tablet 2013-07-10 13:57:53 Yes 1 tab, PO, BID, Substitution Allowed, Maintenance Jyotsna Mares meloxicam 15 mg oral tablet 2013-07-10 13:57:42 Yes 15 mg, 1 tab, PO, Daily, Substitution Allowed [facility] [place] aspirin 2013-07-10 13:57:25 Yes 81 mg, PO, Daily, Substitution Allowed [facility] [place] Humira Pen 40 mg/0.8 mL subcutaneous solution 2013-07-10 13:57:1 1 Yes 40 mg, 0.8 ml, SUB-Q, q2wk, 1 kit, Substitution Allowed, KIT [facility] finasteride 5 mg oral tablet 2013-07-10 13:56:58 Yes 5 mg, 1 tab, PO, Daily, Substitution Allowed [facility] [place] benazepril 2013-07-10 13:56:39 Yes 40 mg, PO, Daily, Substitution Allowed [facility] amLODipine 2013-07-10 13:56:25 Yes 5 mg, PO, Daily, Substitution Allowed [facility] atenolol-chlorthalidone 50 mg-25 mg oral tablet 2013-07-10 13:55 :57 Yes 1 tab, PO, Daily, Substitution Allowed, Maintenance [facility] Aleve 2013-07-10 13:55:14 Yes 220 mg , PO, BID, Substitution Allowed [facility] Vital Signs Vital Name Observation Time Observation Value Comments Source Height 2019-04-24 14:10:00 180.34 cm [facility] Weight 2019-04-24 14:10:00 [facility] BMI Calculated 2019-04-24 [facility] 2019-[facility]-24 14:10:00 [facility] Temperature Oral (F) 2019-04-24 14:10:00 97.7 F [facility] [place] Respitory Rate 2019-04-24 14:10:00 [facility] [place] Systolic (mm Hg) 2019-04-24 14:10:00 Jonathan rial [place] Diastolic (mm Hg) 2019-04-24 14:10:00 [facility] orial [place] Temperature Oral (F) 2019-01-21 15:01:00 96.9 F [facility] [place] Heart Rate 2019-01-21 15:01:00 [facility] [place] Respitory Rate 2019-01-21 15:01:00 [facility] [place] Weight 2019-01-21 15:01:00 [facility] Height 2019-01-21 15:01:00 180.34 cm [facility] [place] BMI Calculated 2019-01-21 15:01:00 [facility] [place] Systolic (mm Hg) 2019-01-21 15:01:00 Jonathan rial [place] Diastolic (mm Hg) 2019-01-21 15:01:00 Mem [facility] [place] BMI Calculated 2018-10-15 16:04:00 [facility] [place] Weight 2018-10-15 16:04:00 [facility] [place] Height 2018-10-15 16:04:00 180.34 cm [facility] Temperature Oral (F) 2018-10-15 16:04:00 97.7 F [facility] [place] Respitory Rate 2018-10-15 16:04:00 [facility] [place] Heart Rate 2018-10-15 16:04:00 [facility] [place] Systolic (mm Hg) 2018-10-15 16:04:00 Jonathan rial [place] Diastolic (mm Hg) 2018-10-15 16:04:00 Mem o[facility] [place] Heart Rate 2018-07-18 14:08:00 [facility] Temperature Oral (F) 2018-07-18 14:08:00 97.0 F [facility] [place] Respitory Rate 2018-07-18 14:08:00 [facility] [place] Height 2018-07-18 14:08:00 180.34 cm [facility] [place] Systolic (mm Hg) 2018-07-18 14:08:00 Jonathan rial [place] Diastolic (mm Hg) 2018-07-18 14:08:00 Mem [facility] [place] Weight 2018-07-18 14:08:00 [facility] [place] BMI Calculated 2018-07-18 14:08:00 [facility] [place] Weight 2018-04-28 15:54:00 [facility] [place] Height 2018-04-28 15:54:00 180.34 cm [facility] BMI Calculated 2018-04-28 15:54:00 [facility] [place] Systolic (mm Hg) 2018-04-28 15:54:00 Jonathan rial [place] Diastolic (mm Hg) 2018-04-28 15:54:00 Mem orial [place] Temperature Oral (F) 2018-04-28 15:54:00 97.2 F [facility] [place] Heart Rate 2018-04-28 15:54:00 [facility] [place] Respitory Rate 2018-04-28 15:54:00 [facility] [place] Weight 2018-04-11 14:45:00 [facility] [place] BMI Calculated 2018-04-11 14:45:00 [facility] [place] Respitory Rate 2018-04-11 14:45:00 [facility] [place] Height 2018-04-11 14:45:00 180.34 cm [facility] Temperature Oral (F) 2018-04-11 14:45:00 97.2 F [facility] Heart Rate 2018-04-11 14:45:00 [facility] [place] Systolic (mm Hg) 2018-04-11 14:45:00 Jonathan rial [place] Diastolic (mm Hg) 2018-04-11 14:45:00 Mem orial [place] Weight 2018-01-09 14:55:00 [facility] [place] BMI Calculated 2018-01-09 14:55:00 [facility] [place] Temperature Oral (F) 2018-01-09 14:55:00 97.1 F [facility] [place] Respitory Rate 2018-01-09 14:55:00 [facility] [place] Heart Rate 2018-01-09 14:55:00 [facility] [place] Systolic (mm Hg) 2018-01-09 14:55:00 Jonathan rial [place] Diastolic (mm Hg) 2018-01-09 14:55:00 Mem orial [place] Height 2018-01-09 14:55:00 180.34 cm [facility] Height 2017-12-10 21:07:00 180.34 cm [facility] [place] BMI Calculated 2017-12-10 21:07:00 [facility] [place] Weight 2017-12-10 21:07:00 [facility] [place] Temperature Oral (F) 2017-12-10 21:07:00 97.9 F [facility] Heart Rate 2017-12-10 21:07:00 [facility] [place] Respitory Rate 2017-12-10 21:07:00 [facility] [place] Systolic (mm Hg) 2017-12-10 21:07:00 Jonathan rial [place] Diastolic (mm Hg) 2017-12-10 21:07:00 Mem [facility] [place] BMI Calculated 2017-10-11 15:34:00 [facility] [place] Weight 2017-10-11 15:34:00 [facility] [place] Height 2017-10-11 15:34:00 180.34 cm [facility] Respitory Rate 2017-10-11 15:34:00 [facility] [place] Heart Rate 2017-10-11 15:34:00 [facility] [place] Systolic (mm Hg) 2017-10-11 15:34:00 Jonathan rial [place] Diastolic (mm Hg) 2017-10-11 15:34:00 Mem orial [place] Temperature Oral (F) 2017-10-11 15:34:00 97.5 F [facility] [place] Diastolic (mm Hg) 2013-07-16 16:00:00 Mem [facility] [place] Systolic (mm Hg) 2013-07-16 16:00:00 Jonathan rial [place] Systolic (mm Hg) 2013-07-16 15:45:00 Jonathan rial [place] Diastolic (mm Hg) 2013-07-16 15:45:00 Mem [facility] [place] Systolic (mm Hg) 2013-07-16 15:30:00 Jonathan rial [place] Diastolic (mm Hg) 2013-07-16 15:30:00 Mem [facility] [place] Respitory Rate 2013-07-16 14:30:00 [facility] [place] Respitory Rate 2013-07-16 14:15:00 [facility] [place] Heart Rate 2013-07-16 11:15:00 [facility] [place] Height 2013-07-10 13:48:00 180.34 cm [facility] [place] Weight 2013-07-10 13:48:00 [facility] [place] Heart Rate 2013-07-10 13:48:00 [facility] [place] Respitory Rate 2013-07-10 13:48:00 [facility] [place] Temperature Oral (F) 2013-07-10 13:48:00 97.6 F [facility] [place] Procedures Procedure Date / Time Performed Performing Clinician [facility] e Procedure on prostate 2010-11-04 00:00:00 [facility] [place] Prostatectomy 2010-11-04 00:00:00 [facility] strong Biopsy of prostate [facility] Cataract surgery<sup>1</sup> Mem orial [place] Cryotherapy<sup>2</sup> [facility] Procedure on knee<sup>3, 4</sup> [facility] [place] Cryotherapy [facility] Encounters Start Date/Time End Date/Time En[facility] ID Source 2019-05-13 14:46:06 2019-05-14 23:59:59 Outpatient [facility] [id number] 2019-04-24 09:15:00 2019-04-24 23:59:59 [id number] 2019-01-21 10:15:00 2019-01-21 23:59:59 [facility] [id number] 2019-01-12 12:01:00 2019-01-13 23:59:59 Outpatient [facility] [place] [id number] 2018-10-15 10:00:00 2018-10-15 23:59:59 [facility] [id number] 2018-07-18 09:00:00 2018-07-18 23:59:59 [facility] [id number] 2018-04-28 11:00:00 2018-04-28 23:59:59 [facility] [id number] 2018-04-11 09:30:00 2018-04-11 23:59:59 [facility] [id number] 2018-01-23 15:35:00 2018-01-24 23:59:59 Outpatient [facility] MG [id number] 2017-12-16 14:54:00 2018-01-14 23:59:00 Outpatient Marcello Newton [id number] 2018-01-09 09:00:00 2018-01-09 23:59:59 [facility] [id number] 2017-11-15 13:20:00 2017-12-14 23:59:00 Outpatient Marcello Newton [id number] 2017-12-10 15:00:00 2017-12-10 23:59:59 [facility] [id number] 2017-10-15 11:50:00 2017-11-13 23:59:00 Outpatient Marcello Newton [id number] 2017-10-15 11:50:00 2017-11-13 23:59:00 Outpatient Marcello Newton [id number] 2017-10-11 09:30:00 2017-10-11 23:59:59 Outpatient Kathe De León [facility] [id number] 2016-10-25 13:47:00 2016-11-23 23:59:00 Outpatient Marcello Newton [id number] 2016-09-21 07:50:00 2016-10-20 23:59:00 Outpatient Marcello Newton [id number] 2016-08-16 07:53:00 2016-08-16 23:59:00 Outpatient Chao Alexysgiselle Garza [facility] [id number] 2013-10-07 09:00:00 2013-11-05 23:59:00 Outpatient MHIE MHIE [id number] [facility] 2013-09-07 10:45:00 2013-10-06 23:59:00 Outpatient MHIE MHIE [id number] [facility] 2013-08-03 13:36:00 2013-09-01 23:59:00 Outpatient MHIE MHIE [id number] [facility] 2013-08-03 13:36:00 2013-09-01 23:59:00 Outpatient MHIE MHIE [id number] [facility] 2013-08-03 13:36:00 2013-09-01 23:59:00 Outpatient MHIE MHIE [id number] [facility] [place] 2013-08-03 13:36:00 2013-09-01 23:59:00 Outpatient ZOË CAMP [id number] [facility] [place] 2013-08-03 13:36:00 2013-09-01 23:59:00 Outpatient ZOË CAMP [id number] [facility] [place] 2013-08-03 13:36:00 2013-09-01 23:59:00 Outpatient CAMRON CAMP [id number] [facility] [place] Results Test Description Test Time Test Comments Results Result Comments Source CHEMISTRY 2013-07-10 14:30:00 3.9 [facility] [place] CHEMISTRY 2013-07-10 14:30:00 [facility] [place] CHEMISTRY 2013-07-10 14:30:00 [facility] [place] CHEMISTRY 2013-07-10 14:30:00 [facility] CHEMISTRY 2013-07-10 14:30:00 8[facility]8 [facility] [place] CHEMISTRY 2013-07-10 14:30:00 1.0 [facility] [place] CHEMISTRY 2013-07-10 14:30:00 29 [facility] [place] CHEMISTRY 2013-07-10 14:30:00 [facility] [place] CHEMISTRY 2013-07-10 14:30:00 20 [facility] [place] CHEMISTRY 2013-07-10 14:30:00 12[facility]9 [facility] [place] HEMATOLOGY 2013-07-10 14:30:00 6.3 [facility] [place] HEMATOLOGY 2013-07-10 14:30:00 0.4 [facility] [place] HEMATOLOGY 2013-07-10 14:30:00 1.1 [facility] [place] HEMAT[facility]Y 2013-07-10 14:30:00 9.7 [facility] HEMATOLOGY 2013-07-10 14:30:00 0.0 [facility] HEMAT[facility]Y 2013-07-10 14:30:00 0.1 [facility] [place] HEMATOLOGY 2013-07-10 14:30:00 0.9 [facility] [place] HEMATOLOGY 2013-07-10 14:30:00 2.0 [facility] HEMAT[facility]Y 2013-07-10 14:30:00 21.1 [facility] HEMATOLOGY 2013-07-10 14:30:00 67.7 [facility] [place] HEMATOLOGY 2013-07-10 14:30:00 0.95 [facility] HEMATOLOGY 2013-07-10 14:30:00 Test Item PTT (test code = PTT) 31.9 s 22.9-35.8 N [facility] EdxeeerMQGESOQRXB2942-05-15 14:30:00* Test Item Value Reference Range Interpretation Comments PT (test code = PT) 12.6 s 12.0-14.7 N [facility] YojglfhLXTVHIEVEW6368-19-95 14:30:[facility] 2013-07-10 14:30:0033.2[facility] VlirisjPITWGLAKSO1041-94-91 14:30:0085.8[facility] EfrozccDNQIFPQGHV2449-83-21 14:30:00* Test Item Value Reference Range Interpretation Comments MCH (test code = MCH) 28.4 pg 27.0-31.0 N [facility]pwGGRBIVAWGJ8938-22-47 14:30:0038.2[facility]ann[facility]OLOG[facility] 2013-07-10 14:30:0014.0[facility] ZyrsiczXZQLGDVSGD4110-18-43 14:30:004.45[facility] TpmglgiCXTUGMNRRD8102-70-53 14:30:009.3[facility] IpmfspgWKVVLYZOXC1133-97-99 14:30:0012.7[facility] GlinhibLAPWVMTQJB0136-30-98 14:30:95964Gmxkrvsm HermannKNEE LEFT 1-2 VIEWS [place] [address] Patient Name: ARLENE GONZALEZ MR #: [id number] : 1945 Age/Sex: 72/M Req #: [id number] Adm Physician: MARCELLO NEWTON MD Ordered by: MARCELLO NEWTON MD Report #: [id number] Location: MED/SURG Room/Bed: [facility] Procedure: [id number] DX/KNEE LEFT 1-2 VIEWS Exam Date: 09/09/17 Exam Time : 1745 REPORT STATUS: Signed PROCEDURE: X-RAY LEFT KNEE, ONE OR TWO V IEWS COMPARISON: None. INDICATIONS: POST OP FINDINGS: St atus post total left knee arthroplasty with intact prosthesis in adequate sandra tomic alignment. There is post-operative suprapatellar effusion, soft tissue swelling and gas. Multiple surgical skin otis. No acute fracture-disloc ation. CONCLUSION: Status post total left knee arthroplasty with intac t prosthesis in adequate anatomic alignment. Joseph Ramirez M.D. Dictated by: Joseph Ramirez M.D. on 09/09/2017 at 18:31 Electronically approved by: Joseph Ramirez M.D. on 09/09/2017 at 18: 31 Dictated By: LEOLA RAMIREZ MD, MD 30 Transcribed By: SHANIQUA on 09/09/171830 COPY TO: MARCELLO NEWTON MD Stress Test - Treadmill ONLY [place] [address] Patient Name : ARLENE GONZALEZ MR #: [id number] : 1945 Age/Sex: 72/M Adm Physi abimbola : MARY HERNANDEZ MD Admit Date : 08/05/17 Location : [facility]/Bed : [facility] 1781 REPORT: Cardiology Report DATE OF STUDY: August 06, 2017 LEXISCAN NUCLEAR STRESS TEST IND ICATION: Chest pain. DESCRIPTION OF PROCEDURE: After informed consent, th e patient was brought to the stress lab. He was given 11 millicuries of tech netium 99 Myoview, and myocardial perfusion SPECT images were obtained in the horizontal long and short axis and vertical long axis views. Subsequently, the patient was given 0.4 mg Lexiscan over 10 seconds. Patient was given 33 mCi of technetium 99 Myoview, and myocardial perfusion SPECT images obtained in horizontal long axis and short axis and vertical long axis views. Gated images were also obtained. Patient tolerated the procedure without any com plications. REPORT: Baseline EKG shows sinus rhythm at 89 beats per tyler te, normal axis, normal intervals, nonspecific ST-T changes. PARAMETERS 1. Resting heart rate is 95 beats per minute. 2. Maximum heart rate is 112 b eats per minute. 3. Resting blood pressure is 152/90 mmHg. 4. Maximum blood pressure 152/90 mmHg. REASON FOR TERMINATION: End point obtained. INT ERPRETATION 1. Negative for chest pain. 2. Negative for arrhythmias. 3 . Blood pressure response consistent with Lexiscan. 4. No significant ST-T c hanges seen during Lexiscan infusion compared to baseline. 5. Analysis of S PECT images reveals uniform radioisotope uptake in all segments of myocardium without any significant perfusion defects. CONCLUSIONS 1. No evidence o f significant ischemia or infarction on this study. 2. No wall motion abnormal ities. 3. Ejection fraction is 65%. Job#: [id number] Signature Date Dic tated By: ADARSH BRADLEY MD Transcribed By: SIS on 08/07/17 < Electronically signed by ADARSH BRADLEY MD><<Signature on File>>08/12/17 8189 COPY TO: CHEST 2 VIEWS [place] [address] Patient Name: ARLENE GONZALEZ MR #: [id number] : 1945 Age/Sex: 72/M Req #: [id number] Adm Physician: Ordered by: TIFFANIE AGEE MD Report #: [id number] Location: ER Room/Bed: Procedure: [id number] DX/CHEST 2 VIEWS Exam Date: Exam Time: 0645 REPORT STATUS: Signed PROCEDURE: Frontal and lateral views of the chest. COMPARISON: Chest 2 views 08/27/2016. INDICATIONS: SHORTNESS OF BREATH, LEFT SIDE CHEST PAIN FINDINGS: Lines/tubes: None. Lungs: The lungs are well infl ated and clear. There is no evidence of pneumonia or pulmonary edema. P leura: There is no pleural effusion or pneumothorax. Heart and mediastinu m: The heart and the mediastinum are normal. Atherosclerotic calcifications. Bones: No acute bony abnormality. Degenerative changes of the thoracic spine. IMPRESSION: No acute radiographic abnormality. Dicta tyesha by: Mary Gar M.D. on 08/05/2017 at 7:36 Electronically approved by: Mary Gar M.D. on 08/05/2017 at 7:36 Dictated By: MARY ELDRIDGE MD 5 Transcribed By: SHANIQUA on 08/05/17735 COPY TO: TIFFANIE AGEE MD
--- OUTSIDE RECORDS SUMMARY | 2020-04-11 02:11 | XMS REPORT | CCD ---
Author Author Auto [facility]RL[facility] Rodriguez [facility] Address Unknown Phone Unavailable Care Team Providers Care Director Business Management Name Role Phone Colin Moreno CP Allergies, [...]
--- OUTSIDE RECORDS SUMMARY | 2020-04-11 02:11 | XMS REPORT | Summary of Care ---
Author Author [facility] Organization [facility] Address Unknown Phone Unavailable Encounter HQ Raheem(FIN) [id number] Date(s): 04/28/18 - 04/28/18 [facility] [address], [address] [place] [address]- [phone] Discharge Disposition: Home or Self Care Attending Physician: Kathe De León MD Vital Signs Most recent to 1 oldest [Reference Range]: Height 180.34 cm (04/28/18 10:54 AM) Temperature Oral 97.2 DegF [96.4-99.1 DegF] (04/28/18 10:54 AM) Blood Pressure 132/76 mmHg [90-140/60-90 mmHg] (04/28/18 10:54 AM) Respiratory Rate 14 BRMIN [14-20 BRMIN] (04/28/18 10:54 AM) Peripheral Pulse 106 bpm Rate [60-100 bpm] *HI* (04/28/18 10:54 AM) Weight 98.75 kg (04/28/18 10:54 AM) Body Mass Index 30.36 m2 (04/28/18 10:54 AM) Problem List Condition Effective Dates Status [...] Reaction Severity Status acetaminophen-hydrocodone hallucinations Active Medications bicalutamide 50 mg oral tablet 50 mg = 1 tab, PO, Q24H, 0 Refill(s) Start Date: 04/28/18 Status: Ordered VESIcare 5 mg oral tablet 5 mg = 1 tab, PO, Daily, 0 Refill(s) Start Date: 04/28/18 Status: Ordered Results No data available for [...] Migrated from OBS ; Data migrated from [employer] on 06/10/2015. 4Result Comment: fluzone high dose [[id number]]. Migrated from OBS ; Data migrated from [employer] on 06/10/2015. [facility] Procedures Procedure Date Related Diagnosis Body [...] Smoking Cessation Counseli ng No2 entered on: 04/28/18 11 beer daily 2started smoking age 15 year quit 1992 used to smoke 1 pack/ day Assessment and Plan No data available for this section
--- OUTSIDE RECORDS SUMMARY | 2020-04-11 02:11 | XMS REPORT | Summary of Care ---
Author Author [facility] Organization [facility] Address Unknown Phone Unavailable Encounter HQ Raheem(FIN) [id number] Date(s): 01/23/18 - 01/24/18 [facility] [address], [address] [place] [address]- [phone] Vital Signs No data available for this [...] Migrated from OBS ; Data migrated from [employer] on 06/10/2015. 4Result Comment: fluzone high dose [[id number]]. Migrated from OBS ; Data migrated from [employer] on 06/10/2015. [facility] Procedures Procedure Date Related Diagnosis Body [...]
--- OUTSIDE RECORDS SUMMARY | 2020-04-11 02:11 | XMS REPORT | CCD ---
Author Author Auto [facility]RL[facility] Rodriguez [facility] Address Unknown Phone Unavailable Care Team Providers Care Municipal Firefighter Name Role Phone Colin Moreno CP Allergies, [...]
--- OUTSIDE RECORDS SUMMARY | 2020-04-11 02:11 | XMS REPORT | Summary of Care ---
Author Author [facility] Address Unknown Phone Unavailable Encounter AYDIN Maciel(LUCIUS) [id number] Date(s): 10/25/16 - 11/23/16 [facility] Discharge Disposition: Home or Self Care Attending [...] 09/16/16 Torsten rded influenza virus vaccine, inactivated 10/22/15 G iven influenza virus vaccine, inactivated2 07/20/14 Given influenza virus vaccine, inactivated3 07/20/14 Given 1Location History: [facility] 2Result Comment: done. Migrated from OBS ; Data migrated from [employer] on 06/10/2015. 3Result Comment: fluzone high dose [[id number]]. Migrated from OBS ; Data migrated from [employer] on 06/10/2015. Procedures Procedure Date Related Diagnosis [...] Days No; Reg Smoking Cessation Counseli ng No1 1started smoking age 15 year quit 1992 used to smoke 1 pack/ day Assessment and Plan No data available for this section
--- OUTSIDE RECORDS SUMMARY | 2020-04-11 02:11 | XMS REPORT | Summary of Care ---
Author Author [facility] Organization [facility] Address Unknown Phone Unavailable Encounter HQ Raheem(FIN) [id number] Date(s): 04/24/19 - 04/24/19 [facility] [address] [place] [address]- Discharge Disposition: Home or Self Care Attending Physician: Kathe De León MD Vital Signs Most recent to 1 oldest [Reference Range]: Height 180.34 cm (04/24/19 9:10 AM) Temperature Oral 97.7 DegF [96.4-99.1 DegF] (04/24/19 9:10 AM) Blood Pressure 105/60 mmHg [90-140/60-90 mmHg] (04/24/19 9:10 AM) Respiratory Rate 14 BRMIN [14-20 BRMIN] (04/24/19 9:10 AM) Peripheral Pulse 66 bpm Rate [60-100 bpm] (04/24/19 9:10 AM) Weight 106.818 kg (04/24/19 9:10 AM) Body Mass Index 32.84 m2 (04/24/19 9:10 AM) Problem List Condition Effective Dates Status [...] from OBS ; Data migrated from [employer] on 06/10/2015. 4Result Comment: fluzone high dose [[id number]]. Migrated from OBS ; Data migrated from [employer] on 06/10/2015. 5Result Comment: Patient waited 15 minutes after vaccine was administered, no allergic reaction noted. [facility] Procedures Procedure Date Related Diagnosis [...]
--- OUTSIDE RECORDS SUMMARY | 2020-04-11 02:11 | XMS REPORT | CCD ---
Author Author Auto ARLENE Rodriguez [facility] Address Unknown Phone Unavailable Care Team Providers Care Hobbies And Crafts Sales Representative Name Role Phone Colin Moreno CP Allergies, [...]
--- OUTSIDE RECORDS SUMMARY | 2020-04-11 02:11 | XMS REPORT | CCD ---
Author Author [facility] ARL[facility] Rodriguez [facility] Address Unknown Phone Unavailable Care Team Providers Care Route Specialist Name Role Phone Colin Moreno RP Allergies, Adverse Reactions, Alerts Substance Reaction Status NKDA Active Problem List Condition Effective Dates Status Arthritis Active Dentures1 Active Hard of hearing Active Hypertension Active Prostate carcinoma < 2010 Resolved Psoriasis Active Radiation Resolved Rupture of rotator cuff of shoulder2 Active Shoulder pain3 Active 1full upper and lower 2right shoulder 3right Medications Medication Instructions Start Date End Date Status [place] 5/325 oral 1 tab, PO, BID, Substitution 07/10/2013 Ordered tablet Allowed, Maintenance meloxicam 15 mg oral 15 mg, 1 tab, PO, Daily, 07/10/2013 Ordered tablet Substitution Allowed aspirin 81 mg, PO, Daily, Substitution 07/10/2013 Ordered Allowed Humira Pen 40 mg/0.8 40 mg, 0.8 ml, SUB-Q, q2wk, 1 kit, 07/10 Ordered mL subcutaneous Substitution Allowed, KIT solution finasteride 5 mg 5 mg, 1 tab, PO, Daily, 07/10/2013 Orde red oral tablet Substitution Allowed benazepril 40 mg, PO, Daily, Substitution 07/10/2013 Ordered Allowed amLODipine 5 mg, PO, Daily, Substitution 07/10/2013 Ordered Allowed atenolol-chlorthalid 1 tab, PO, Daily, Substitution 3 Ordered one 50 mg-25 mg oral Allowed, Maintenance tablet Aleve 220 mg, PO, BID, Substitution 07/10/2013 Ordered Allowed Ofirmev 1,000 mg, Route: IV, Drug form: 07/16/2013 013 Completed INJ, ONCE, Dosing Weight 97.273, kg, PRN Pain, for > or = 50 kg, Start date: 07/16/13 9:34:00 Taclonex TOP, Daily, Substitution Allowed 07/10/2013 Ordered flumazenil 0.2 mg, Route: IVP, PRN, Dosing 07/16/2013 013 Discontinued Weight 97.273, kg, PRN Benzodiazepine Reversal, Initial dose, Start date: 07/16/13 9:05:00, Duration: 30 day, Stop date: 08/15/13 9:04:00 naloxone 0.04 mg, Route: IVP, Q2MIN, Dosing 07/16/201307/05 Discontinued Weight 97.273, kg, PRN Narcotic Reversal, Start date: 07/16/13 9:05:00, Duration: 8 doses or times, Stop date: Limited # of times ondansetron 4 mg, Route: IVP, ONCE, Dosing 07/16/2013 07/16/20 Discontinued Weight 97.273, kg, PRN Nausea & Vomiting, Start date: 07/16/13 9:05:00 metoprolol 1 mg, Route: IVP, Q5Min, Dosing 07/16/2013 013 Discontinued Weight 97.273, kg, PRN Elevated BP, Start date: 07/16/13 9:05:00, Duration: 5 doses or times, Stop date: Limited # of times acetaminophen-hydroc 2 tab, Route: PO, Dosing Weight 07/16/2013 07/16/2013 Discontinued odone 325 mg-5 mg 97.273, kg, Q4H, PRN Pain S core oral tablet 4-6, Start date: 07/16/13 9 :05:00, Duration: 30 day, Stop date: 08/15/13 9:04:00 acetaminophen-hydroc 1 tab, Route: PO, Dosing Weight 07/16/2013 07/16/2013 Discontinued odone 325 mg-5 mg 97.273, kg, Q4H, PRN Pain S core oral tablet 1-3, Start date: 07/16/13 9 :05:00, Duration: 30 day, Stop date: 08/15/13 9:04:00 fentanyl 25 microgram, Route: IVP, Q5Min, 07/16/20132012 Discontinued Dosing Weight 97.273, kg, PRN Pain Score 4-6, Start date: 07/16/13 9:05:00, Duration: 4 doses or times, Stop date: Limited # of times hydromorphone 0.5 mg, Route: IVP, Q5Min, Dosing 07/16/201310/2013 Discontinued Weight 97.273, kg, PRN Pain Score 7-10, Start date: 07/16/13 9:05:00, Duration: 5 doses or times, Stop date: Limited # of times ropivacaine 0.2% in Dosing: Per Nerve Block Dosing 07/16/2013 07/16/2013 Discontinued NS - site 1 550 mL Order, Route: NERVE BLOCK, Start date: 07/16/13 9:05:00 550 mL, Dosing Weight 97.273, kg, Duration: 30 day, Stop date: 08/15/13 9:04:00 Lactated Ringers 1,000 mL, Rate: 25 ml/hr, Infuse 07/16/2013 0 07/16/2013 Discontinued Injection IV 1000 mL over: 40 hr, Route: IV, Dos ing Weight 97.273 kg, Total Volume: 1,000, Start date: 07/16/13 7:32:00, Duration: 30 day, Stop date: 08/15/13 7:31:00 Ancef + Sodium 1 gm, Route: IVPB, ONCE, Dosing 07/16/201307/05 Completed Chloride 0.9% IV 100 Weight 97.273, kg, Start da te: mL 07/16/13 7:40:00, Duration: 1 doses or times, Stop date: 07/16/13 7:40:00 ketorolac 30 mg/mL 60 mg, Route: IM, ONCE, Dosing 07/16/2013 0 07/16/2013 Completed injectable solution Weight 97.273, kg, Start da te: 07/16/13 10:00:00, Stop date: 07/16/13 10:00:00 Humira Pen 40 mg/0.8 40 mg, 0.8 ml, SUB-Q, q2wk, 07/16/2013 Ordered mL subcutaneous monthly, 1 kit, Substitutio n solution Allowed, KIT monthly Vital Signs Most recent to oldest [Reference Range]: 1 2 3 Height 180.34 cm (07/10/2013 08:48:00) Temperature Oral [96.4-99.1 DegF] 97.6 DegF (07/10/2013 08:48:00) Systolic Blood Pressure [90-140 mmHg] 127 mmHg (07/16/2013 11:00:00) 141 mmHg *HI* (07/16/2013 10:45:00) 141 mmHg *HI* (07/16/2013 10:30:00) Diastolic Blood Pressure [60-90 mmHg] 74 mmHg (07/16/2013 11:00:00) 81 mmHg (07/16/2013 10:45:00) 77 mmHg (07/16/2013 10:30:00) Respiratory Rate [14-20 BRMIN] 14 BRMIN (07/16/2013 09:30:00) 12 BRMIN *LOW* (07/16/2013 09:15:00) 18 BRMIN (07/10/2013 08:48:00) Peripheral Pulse Rate [60-100 bpm] 70 bpm (07/16/2013 06:15:00) 68 bpm (07/10/2013 08:48:00) Weight 97.273 kg (07/10/2013 08:48:00) Results CHEMISTRY Most recent to oldest [Reference Range]: 1 Sodium Lvl [135-145 mEq/L] 143 mEq/L (07/10/2013 09:30:00) Potassium Lvl [3.5-5.1 mEq/L] 3.9 mEq/L (07/10/2013 09:30:00) Chloride Lvl [95-109 mEq/L] 105 mEq/L (07/10/2013 09:30:00) CO2 [24-32 mEq/L] 29 mEq/L (07/10/2013 09:30:00) AGAP [10.0-20.0 mEq/L] 12.9 mEq/L (07/10/2013 09:30:00) Creatinine Lvl [0.5-1.4 mg/dL] 1.0 mg/dL (07/10/2013 09:30:00) eGFR 76 mL/min/1.73m2 1 *NA* (07/10/2013 09:30:00) BUN [7-22 mg/dL] 20 mg/dL (07/10/2013 09:30:00) Glucose Lvl [70-99 mg/dL] 101 mg/dL 2 *HI* (07/10/2013 09:30:00) Calcium Lvl [8.5-10.5 mg/dL] 8.8 mg/dL (07/10/2013 09:30:00) 1Result Comment: The eGFR is calculated using the CKD-EPI formula. In most young, healthy individuals the eGFR will be >90 mL/min/1.73m2. The eGFR declines with age. An eGFR of 60-89 may be normal in some populations, particularly the elderly, for whom the CKD-EPI formula has not been extensively validated. Use of the eGFR is not recommended in the following populations: Individuals with unstable creatinine concentrations, including patients and those with serious co-morbid conditions. Patients with extremes in muscle mass or diet. The data above are obtained from the National Kidney Disease Education Program ( NKDEP) which additionally recommends that when the eGFR is used in patients with extremes of body mass index for purposes of drug dosing, the eGFR should be mul tiplied by the estimated BMI. 2Interpretive Data: Adult reference range values reflect the clinical guidelines of the [place] [employer]. HEMATOLOGY Most recent to oldest [Reference Range]: 1 WBC [3.7-10.4 K/CMM] 9.3 K/CMM (07/10/2013 09:30:00) RBC [4.70-6.10 M/CMM] 4.45 M/CMM *LOW* (07/10/2013:30:00) Hgb [14.0-18.0 g/dL] 12.7 g/dL *LOW* (07/10/2013::00) Hct [42.0-54.0 %] 38.2 % *LOW* (07/10/2013:30:00) MCV [80.0-94.0 fL] 85.8 fL (07/10/2013:30:00) MCH [27.0-31.0 pg] 28.4 pg (07/10/2013:30:00) MCHC [32.0-36.0 g/dL] 33.2 g/dL (07/10/2013:30:00) RDW [11.5-14.5 %] 14.0 % (07/10/2013:30:00) Platelet [133-450 K/CMM] 370 K/CMM (07/10/2013:30:00) MPV [7.4-10.4 fL] 7.8 fL (07/10/2013 09:30:00) Segs [45.0-75.0 %] 67.7 % (07/10/2013 09:30:00) Lymphocytes [20.0-40.0 %] 21.1 % (07/10/2013 09:30:00) Monocytes [2.0-12.0 %] 9.7 % (07/10/2013:30:00) Eosinophils [0.0-4.0 %] 1.1 % (07/10/2013:30:00) Basophils [0.0-1.0 %] 0.4 % (07/10/2013 09:30:00) Segs-Bands # [1.5-8.1 K/CMM] 6.3 K/CMM (07/10/2013 09:30:00) Lymphocytes # [1.0-5.5 K/CMM] 2.0 K/CMM (07/10/2013 09:30:00) Monocytes # [0.0-0.8 K/CMM] 0.9 K/CMM *HI* (07/10/2013 09:30:00) Eosinophils # [0.0-0.5 K/CMM] 0.1 K/CMM (07/10/2013 09:30:00) Basophils # [0.0-0.2 K/CMM] 0.0 K/CMM (07/10/2013 09:30:00) PT [12.0-14.7 seconds] 12.6 seconds (07/10/2013 09:30:00) INR [0.85-1.17] 0.95 3 (07/10/2013 09:30:00) PTT [22.9-35.8 seconds] 31.9 seconds 4 (07/10/2013 09:30:00) 3Interpretive Data: RECOMMENDED RANGES FOR PROTIME INR: 2.0-3.0 for most medical and surgical thromboembolic states. 2.5-3.5 for artificial heart valves and recurrent embolism. INR SHOULD BE USED ONLY FOR PATIENTS ON STABLE ANTICOAGULANT THERAPY. 4Interpretive Data: Heparin Therapeutic Range: 57 - 92 Seconds Procedures Procedures Date Related Diagnosis Cryotherapy Prostatectomy 2010
--- OUTSIDE RECORDS SUMMARY | 2020-04-11 02:11 | XMS REPORT | CCD ---
Author Author Auto ARLENE Rodriguez [facility] Address Unknown Phone Unavailable Care Team Providers Care Atmospheric Scientist Name Role Phone Colin Moreno CP Allergies, [...]
--- OUTSIDE RECORDS SUMMARY | 2020-04-11 02:11 | XMS REPORT | CCD ---
Author Author Auto ARLENE Rodriguez [facility] Address Unknown Phone Unavailable Care Team Providers Care Senior Quantity Surveyor Name Role Phone Colin Moreno CP Allergies, [...]
--- OUTSIDE RECORDS SUMMARY | 2020-04-11 02:11 | XMS REPORT | CCD ---
Author Author Auto ARLENE Rodriguez [facility] Address Unknown Phone Unavailable Care Team Providers Care Hand Decorator Name Role Phone Colin Moreno CP Allergies, [...]
--- OUTSIDE RECORDS SUMMARY | 2020-04-11 02:11 | XMS REPORT | Summary of Care ---
Author Author [facility] Organization [facility] Address Unknown Phone Unavailable Encounter HQ Raheem(FIN) [id number] Date(s): 08/16/16 - 08/16/16 [facility] [place] [address] [place] [phone] Discharge Disposition: Home or Self Care Attending [...] fasting Active glucose(Confirmed) Obesity7, 8 Active Prostate < 2010 Resolved carcinoma(Confirmed) Psoriasis9, 10 Active RUQ abdominal Active [...] Date Status Refusal Reason influenza virus vaccine, inactivated 08/25/15 G iven influenza virus vaccine, inactivated1 07/20/14 Given influenza virus vaccine, inactivated2 07/20/14 Given 1Result Comment: done. Migrated from OBS ; Data migrated from [employer] on 06/10/2015. 2Result Comment: fluzone high dose [[id number]]. Migrated from OBS ; Data migrated from [employer] on 06/10/2015. Procedures Procedure Date Related Diagnosis Body Site Procedure on prostate 2010 Biopsy of prostate Cataract surgery1 Cryotherapy2 1rt eye 2prostate Social History Social History Type Response Substance [...]
--- OUTSIDE RECORDS SUMMARY | 2020-04-11 02:11 | XMS REPORT | Summary of Care ---
Author Author [facility] Organization [facility] Address Unknown Phone Unavailable Encounter HQ Raheem(FIN) [id number] Date(s): 01/12/19 - 01/13/19 [facility] [address], [address] [place] [address] [phone] Vital Signs No data available for this [...] Migrated from OBS ; Data migrated from [employer] on 06/10/2015. 4Result Comment: fluzone high dose [[id number]]. Migrated from OBS ; Data migrated from [employer] on 06/10/2015. 5Result Comment: Patient waited 15 minutes after vaccine was administered, no allergic reaction noted. [facility] Procedures Procedure Date Related Diagnosis Body [...] Smoking Cessation Counseli ng No2 entered on: 10/15/18 11 beer daily 2started smoking age 15 year quit 1992 used to smoke 1 pack/ day Assessment and Plan No data available for this section
--- OUTSIDE RECORDS SUMMARY | 2020-04-11 02:11 | XMS REPORT | CCD ---
Author Author Auto ARLENE Rodriguez [facility] Address Unknown Phone Unavailable Care Team Providers Care Children'S Nursery Assistant Name Role Phone Colin Moreno CP Allergies, [...]
[2020-04-11] MEDS ORDERED: EPINEPHRINE HCL 1:1000 1ML 1 MG/ML AMP INJ STA (02:12)
[2020-04-11] MEDS ORDERED: FAMOTIDINE 20 MG/2 ML VIAL IV STA (02:12)
--- NOTE | 2020-04-11 02:12 | Emergency Department Note ---
History of Present Illnes History of Present Illness History of Present Illness This is a 75 year old male presents to the ED for acute onset of lingular swelling one hour prior to arrival. Reports sensation that throat is closing in. Seen at bedside no respiratory distress but patient with mild difficulty in speech. Child Development Professor Required: No Onset (how long ago): hour(s) (1 hour prior to arrival) Severity: moderate Onset quality: sudden Progression: worsening Chronicity: recurrent Relieving factors: none Exacerbating factors: none Associated symptoms: denies other symptoms Treatments prior to arrival: none Past Medical/Family History Physician Review I have reviewed the patient's past medical and family history. Any updates have been documented here. Past Medical History Recent Fever: No Clinical Suspicion of Infectio: No New/Unexplained Change in Ment: No Past Medical History: Hypertension Other Medical History: HIGH CHOLESTEROL PROSTATE CANCER Other Surgery: TURP? ROTATOR CUFF Social History Smoking Cessation: Never Smoker Alcohol Use: None Any Illegal Drug Use: No Other Last Tetanus: UNK Review of Systems Review of Systems Constitutional: no symptoms EENTM: no symptoms, throat swelling Cardiovascular: no symptoms Respiratory: no symptoms Gastrointestinal: no symptoms Genitourinary: no symptoms Musculoskeletal: no symptoms Neurological: no symptoms Psychological: no symptoms Endocrine: no symptoms Hematological/Lymphatic: no symptoms Review of other systems All other systems reviewed and negative. Physical Exam Related Data Allergies: Coded Allergies: atorvastatin (Verified Allergy, Severe, ANGIOEDEMA, 04/11/20) hydrocodone (Verified Allergy, Mild, HALLICINATIONS, 08/27/16) Physical Exam CONSTITUTIONAL Constitutional: well-developed, well-nourished HENT HENT: normocephalic, atraumatic, oropharynx clear/moist, nose normal HENT L/R: left TM normal, right TM normal, left canal normal, right canal normal, left ext ear normal, right ext ear normal, left impacted cerumen, right impacted cerumen, left bulging TM, right bulging TM EYES Eyes: PERRL, conjunctivae normal NECK Neck: ROM normal PULMONARY Pulmonary: effort normal, breath sounds normal CARDIOVASCULAR Cardiovascular: regular rhythm, heart sounds normal, capillary refill normal, normal rate GASTROINTESTINAL Abdominal: soft, nontender, bowel sounds normal GENITOURINARY Genitourinary: exam deferred SKIN Skin: warm, dry MUSCULOSKELETAL Musculoskeletal: ROM normal NEUROLOGICAL Neurological: alert, oriented x 3, no gross motor or sensory deficits PSYCHOLOGICAL Psychological: mood/affect normal, judgement normal Exam - additional comments diffuse lingular swelling left and right. Airway patent on initial examination. Patient with mild difficulty enunciating words. Results Laboratory Lab results reviewed: Yes Laboratory comments Laboratory Tests Test 04/11/20 05:50 04/11/20 02:45 White Blood Count 10.14 x10e3/uL (4.8-10.8) Red Blood Count 4.58 x10e6/uL (4.3-5.7) Hemoglobin 12.8 g/dL (14.0-18.0) Hematocrit 38.6 % (38.2-49.6) Mean Corpuscular Volume 84.3 fL (81-99) Mean Corpuscular Hemoglobin 27.9 pg (28-32) Mean Corpuscular Hemoglobin Concent 33.2 g/dL (31-35) Red Cell Distribution Width 13.4 % (11.7-14.4) Platelet Count 280 x10e3/uL (140-360) Neutrophils (%) (Auto) 67.5 % (38.7-80.0) Lymphocytes (%) (Auto) 21.5 % (18.0-39.1) Monocytes (%) (Auto) 7.4 % (4.4-11.3) Eosinophils (%) (Auto) 2.6 % (0.0-6.0) Basophils (%) (Auto) 0.6 % (0.0-1.0) Neutrophils # (Auto) 6.9 (2.1-6.9) Lymphocytes # (Auto) 2.2 (1.0-3.2) Monocytes # (Auto) 0.8 (0.2-0.8) Eosinophils # (Auto) 0.3 (0.0-0.4) Basophils # (Auto) 0.1 (0.0-0.1) Absolute Immature Granulocyte (auto 0.04 x10e3/uL (0-0.1) Sodium Level 142 mmol/L (136-145) Potassium Level 3.4 mmol/L (3.5-5.1) Chloride Level 108 mmol/L (98-107) Carbon Dioxide Level 22 mmol/L (22-29) Anion Gap 15.4 mmol/L (8-16) Blood Urea Nitrogen 21 mg/dL (7-26) Creatinine 1.23 mg/dL (0.72-1.25) Estimat Glomerular Filtration Rate 57 ML/MIN (60-) BUN/Creatinine Ratio 17 (6-25) Glucose Level 174 mg/dL (74-118) Calcium Level 9.8 mg/dL (8.4-10.2) Creatine Kinase 66 IU/L (30-200) Creatine Kinase MB 0.80 ng/mL (0-5.0) Troponin I < 0.001 ng/mL (0-0.300) Procedures 12 Lead ECG Interpretation Child Development Professor: Interpreted by ED physician Date: Apr 11, 2020 Time: 02:57 Prior [facility]ATHER tracings: reviewed Rhythm: sinus rhythm Rate: normal BPM: 96 QRS axis: normal ST segments normal: No ST segments depression: aVL, V4, V5, V6 T waves normal: Yes Clinical Impression: non-specific ECG Critical Care Time Total Critical Care Time (min): 31 Critcal care necessary due to: respiratory failure Critcal care time spent by me: develop tx plan w patient/surrogate, evaluation patient response to tx, examination of patient, order/perform tx or interventions, re-evaluation of patient condition Assessment & Plan Assessment & Plan Final Impression: (1) Angioedema Assessment & Plan Patient responding well to clinical therapy. Lingular swelling markedly improving. No concern for impending airway emergency. Plan to admit patient to the hospital for observation. Depart Disposition: ADMITTED Home Meds Reported Medications Betamet Diprop/Prop Gly (BETAMETHASONE DP AUG 0.05% CRM) 15 Gm Cream..g., TOP PRN 09/05/17 [Otezla] No Conflict Check, 30 MG PO BID 09/05/17 Omeprazole (OMEPRAZOLE) 40 Mg Capsule.dr, 40 MG PO DAILY 09/05/17 Aspirin (ASPIR-LOW) 81 Mg Tablet.dr, 81 MG PO DAILY 09/05/17 Ibuprofen (IBUPROFEN) 400 Mg Tablet, 800 MG PO DAILY PRN for PAIN, TAB 08/05/17 [Lupron] No Conflict Check, IM Q4MOS 08/27/16 Benazepril Hcl (BENAZEPRIL HCL) 40 Mg Tablet, 40 MG PO DAILY 08/27/16 Amlodipine Besylate (AMLODIPINE BESYLATE) 5 Mg Tablet, 5 MG PO DAILY, #30 TAB 08/27/16 Atenolol/Chlorthalidone (ATENOLOL-CHLORTHAL 50-25 TB) 1 Each Tablet, PO DAILY 08/27/16 Medications in the ED Epinephrine HCl 0.5 mg ONCE STAT INJ Last administered on 04/11/20at 02:35; Admin Dose 0.5 MG; Start 04/11/20 at 02:12; Stop 04/11/20 at 02:26; Status DC Diphenhydramine HCl 50 mg NOW ONCE IV Last administered on 04/11/20at 02:35; Admin Dose 50 MG; Start 04/11/20 at 02:15; Stop 04/11/20 at 02:26; Status DC Methylprednisolone Sodium Succinate 125 mg ONCE ONCE IV Last administered on 04/11/20at 02:35; Admin Dose 125 MG; Start 04/11/20 at 02:15; Stop 04/11/20 at 02:26; Status DC Famotidine 20 mg NOW STAT IV Last administered on 04/11/20at 02:35; Admin Dose 20 MG; Start 04/11/20 at 02:12; Stop 04/11/20 at 02:26; Status DC Famotidine 20 mg STK-MED ONCE IV ; Start 04/11/20 at 02:35; Stop 04/11/20 at 02:30; Status DC Epinephrine HCl 0.5 mg ONCE ONCE INJ Last administered on 04/11/20at 03:50; Admin Dose 0.5 MG; Start 04/11/20 at 03:15; Stop 04/11/20 at 03:16; Status DC Diphenhydramine HCl 25 mg Q6H PRN IV ITCHING; Start 04/11/20 at 04:00; Stop 05/11/20 at 03:59 Methylprednisolone Sodium Succinate 40 mg Q6HR IV Last administered on 04/11/20at 08:35; Admin Dose 40 MG; Start 04/11/20 at 06:00; Stop 04/11/20 at 09:18; Status DC Epinephrine HCl 0.5 mg ONCE PRN INJ ALLERGY; Start 04/11/20 at 04:00; Stop 05/11/20 at 03:59 Sodium Chloride 1,000 ml @ 125 mls/hr Q8H IV Last administered on 04/11/20at 07:30; Admin Dose 125 MLS/HR; Start 04/11/20 at 04:00; Stop 04/11/20 at 09:18; Status DC BECCA HERNANDEZ DO Apr 11, 2020 02:12
[2020-04-11] MEDS ORDERED: DIPHENHYDRAMINE HCL INJ 50 MG/ML VIAL IV ONE (02:15)
[2020-04-11] MEDS ORDERED: METHYLPREDNISOLONE SOD SUCC 125 MG/2ML VIAL IV ONE (02:15)
[2020-04-11] MEDS ORDERED: FAMOTIDINE 20 MG/2 ML VIAL IV ONE (02:35)
[2020-04-11] MEDS ORDERED: EPINEPHRINE HCL 1:1000 1ML 1 MG/ML AMP INJ ONE (03:15)
[2020-04-11 03:24] LABS: BASOPHILS # (AUTO) 0.1 (0.0-0.1); BASOPHILS % 0.6 % (0.0-1.0); EOSINOPHILS # (AUTO) 0.3 (0.0-0.4); EOSINOPHILS % 2.6 % (0.0-6.0); HEMATOCRIT 38.6 % (38.2-49.6); HEMOGLOBIN 12.8 g/dL (14.0-18.0); LYMPHOCYTES # (AUTO) 2.2 (1.0-3.2); LYMPHOCYTES % 21.5 % (18.0-39.1); MEAN CORPUSCULAR HEMOGLOBIN 27.9 pg (28-32); MEAN CORPUSCULAR HGB CONC 33.2 g/dL (31-35); MEAN CORPUSCULAR VOLUME 84.3 fL (81-99); MONOCYTES # (AUTO) 0.8 (0.2-0.8); MONOCYTES % 7.4 % (4.4-11.3); NEUTROPHILS # (AUTO) 6.9 (2.1-6.9); NEUTROPHILS % 67.5 % (38.7-80.0); PLATELET COUNT 280 x10e3/uL (140-360); RED BLOOD COUNT 4.58 x10e6/uL (4.3-5.7); RED CELL DISTRIBUTION WIDTH 13.4 % (11.7-14.4)
[2020-04-11 03:32] LABS: ANION GAP 15.4 mmol/L (8-16); CALCIUM 9.8 mg/dL (8.4-10.2); CREATININE, SERUM 1.23 mg/dL (0.72-1.25); POTASSIUM 3.4 mmol/L (3.5-5.1)
[2020-04-11 03:33] LABS: CREATINE KINASE 66 IU/L (30-200)
--- NOTE | 2020-04-11 03:51 | NUR ---
PT DENIES CP OR SOB AT THIS TIME. PT STATES HE DOES NOT HAVE DIFFICULTY SWALLOWING. SKIN WARM, DRY AND WNL FOR PT. SPO2 99% RA. PT TALKING IN COMPLETE SENTENCES. NO CYANOSIS NOTED TO LIPS. NAD NOTED AT THIS TIME. RESP EVEN AND UNLABORED. ER MD NOTIFIED OF PT'S STATUS. PT IS LAYING DOWN IN STRETCHER. CALL LIGHT IS IN REACH IF IN NEED OF ASSISTANCE.
[2020-04-11] MEDS ORDERED: SODIUM CHLORIDE 0.9% 1000ML 1,000 ML IV SCH (04:00)
[2020-04-11] MEDS ORDERED: EPINEPHRINE HCL 1:1000 1ML 1 MG/ML AMP INJ PRN (04:00)
[2020-04-11] MEDS ORDERED: DIPHENHYDRAMINE HCL INJ 50 MG/ML VIAL IV PRN (04:00)
[2020-04-11] MEDS ORDERED: METHYLPREDNISOLONE SOD SUCC 40 MG/ML VIAL 1ML IV SCH (06:00)
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
--- OUTSIDE RECORDS SUMMARY | 2020-04-11 06:47 | XMS REPORT | Continuity of Care Document ---
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 Name Role Phone Tamica De Leónkaren Attphys [...] TKA S/P LT TKA Active 11/04/2017 [facility] [place] Diagnosis Active 2017-11-04 08:00:00 2017-11-15 13:26:00 Niraj Oconnor LEFT KNEE LEFT KNEE Active 09/09/2017 [facility] [place] Diagnosis Active 2017-09-09 08:00:00 2017-12-18 16:58:00 Niraj Oconnor S83.242A - "OTH TEAR OF MEDIAL MENISCUS, S83.242A - "OTH TEAR OF MEDIAL MENISCUS, Active 08/14/2016 OPID [place] Diagnosis Active 2016-08-14 00:01:00 2016-08-16 08:01:00 Anna Oconnor Hyperlipidemia (disorder) Hype rlipidemia (disorder) Active 03/23/2014 Problem 11/26/2016 Data migrated from [employer] on 04/05/15.Data migrated from [employer] on 04/05/15. OPID [place], [facility] [place] Problem Active 2014-03-23 00:00:00 2016-11-26 01:26:31 [facility] Body mass index 30+ - obesity (finding) Body mass index 30+ - obesity (finding) Active 12/22/2013 Problem 05/16/2019 Data migrated from [employer] on 04/05/15.Data migrated from [employer] on 04/05/15. Medical Group, OPID [place], S[facility] [place] Problem Active 201 02-03-18 00:00:00 2019-05-16 23:54:13 [facility] Her strong 840.4/726.2/726.10/719.41/840.7 840.4/726.2/726.10/719.41/840.7 Active 07/02/2013 [facility] Diagnosis Active 2013-07-02 00:00:00 2013-07-20 12:41:00 M shaniqua Oconnor UNK UNK Active 07/02/2013 [facility] Diagnosis Active 2013-07-02 00:00:00 2013-07-07 13:28:00 [facility] 715.0 - GENERAL OSTEOAR 715. 0 - GENERAL OSTEOAR Active 06/08/2013 [facility] [place] Diagnosis Active 2013-06-08 00:01:00 2013-06-16 12:49:00 Niraj Oconnor Pain in left knee Pain in left knee 03/22/2018 [facility] [place] Problem 2018-03-22 11:12:35 [facility] Muscle weakness (generalized) Muscle weakness (generalized) 04/22/2018 [facility] [place] Problem 2018-04 11:46:09 [facility] El[facility] Difficulty in walking, not elsewhere classified Difficulty in walking, not elsewhere classified 04/22/2018 [facility] [place] Problem 2018-04-22 11:46:09 [facility] Stiffness of unspecified joint, not elsewhere classifi ed Stiffness of unspecified joint, not elsewhere classified 04/22/2018 [facility] [place] Problem 2018-04-22 11:46:09 [facility] Essential (primary) hypertension Essential (primary) hypertension 02/19/2018 [facility] [place] Problem 14:34:19 [facility] Stiffness of left knee, not elsewhere classified Stiffness of left knee, not elsewhere classified 04/22/2018 [facility] [place] Problem 2018-04-22 11:46:09 [facility] Radiation (physical force) Rad iation (physical force) Resolved Problem 11/07/2013 [facility] [place] Problem Resolved 2013-11-07 21:12:03 [facility] Prostate carcinoma Pros thompson carcinoma Resolved Problem 07/18/2013 [facility] Problem Resolved 2013-07-18 20:52:49 [facility] Radiation Radi ation Resolved Problem 07/18/2013 [facility] Problem Resolved 2013-07-18 20:52:49 M shaniqua Oconnor Arthritis (disorder) Arth ritis (disorder) Active Problem 11/16/2017 [facility] [place] Problem Active 2017-11-16 08:01:56 [facility] Benign hypertension (disorder) Benign hypertension (disorder) Active Problem 05/16/2019 Data migrated from [employer] on 04/05/15.Data migrated from [employer] on 04/05/15. Medical [facility] T[facility] [place] Problem Active 2019-05-16 23:54:13 Niraj Oconnor Osteoarthritis of knee (disorder) Osteoarthritis of knee (disorder) Active Problem 05/16/2019 [facility] [place] Problem Active 2019-05-16 23:54:13 Sally Oconnor Diabetes mellitus (disorder) D iabetes mellitus (disorder) Active Problem 05/16/2019 [facility] [place] Problem Active 2019-05-16 23:54:13 Sally Oconnor Dyspnea (finding) Dysp benji (finding) Active Problem 05/16/2019 [facility] [place] Problem Active 2019-05-16 23:54:13 [facility] Gastroesophageal reflux disease (disorder) Gastroesophageal reflux disease (disorder) Active Problem 05/16/2019 [facility] [place] Problem Active 2019-05-16 23:54:13 Niraj Oconnor Hearing loss (finding) Hear ing loss (finding) Active Problem 05/16/2019 [facility] [place] Problem Active 2019-05-16 23:54:13 Memnetta Oconnor History of malignant neoplasm of prostate (situation) History of malignant neoplasm of prostate (situation) Active Problem 05/16/2019 Medical Group, OPIWard [place], [facility] [place] Problem Active 2019-05-16 23:54:13 Niraj Oconnor History of operative procedure on knee (situation) History of operative procedure on knee (situation) Active Problem 05/16/2019 Medical [facility], SMR [place] Problem Active 2019-05-16 23:5 4:13 [facility] [place] Knee pain (finding) Knee pain (finding) Active Problem 05/16/2019 Medical Group Problem Active 2019-05-16 23:54:13 Niraj Oconnor Mixed hyperlipidemia (disorder) Mixed hyperlipidemia (disorder) Active Problem 05/16/2019 [facility], SMR [place] Problem Active 2019-05-16 23:54:13 Sally Oconnor Obesity (disorder) Obes ity (disorder) Active Problem 05/16/2019 Data migrated from [employer] on 04/05/15.Data migrated from [employer] on 04/05/15. Medical [facility], TEN [place], SMR [place] Problem Active 2019-05-16 23:54:13 Memnetta Oconnor Carcinoma of prostate (disorder) Carcinoma of prostate (disorder) Active Problem 05/16/2019 Medical [facility], OPID [place], SMR [place] Problem Active 2019-05-16 23:54:13 Jonathan Oconnor Psoriasis (disorder) Psor iasis (disorder) Active Problem 05/16/2019 Data migrated from [employer] on 04/05/15.Data migrated from [employer] on 04/05/15. Medical Group, OPID [place], [facility] [place] Problem Active 2019-05-16 23:54:13 Sally Oconnor Right upper quadrant pain (finding) Right upper quadrant pain (finding) Active Problem 05/16/2019 [facility], OPID [place], SMR [place] Problem Active 2019-05-16 23:54:13 Jonathansukhdeep Oconnor Rotator cuff syndrome (disorder) Rotator cuff syndrome (disorder) Active Problem 05/16/2019 right shoulder Medical [facility] OPID [place], SMR [place] Problem Active 2019-05-16 23:54:13 Niraj Oconnor Shoulder pain (finding) Shou lder pain (finding) Active Problem 05/16/2019 right Medical Group, [facility]OVANAWard [facility] [place] Problem Active 2019-05-16 23:54:13 Sally iamanuela Oconnor Weight loss finding (finding) Weight loss finding (finding) Active Problem 05/16/2019 Medical Group,[facility] [place] Problem Active 2019-05-16 23:54:13 Blueor iamanuela Oconnor Denture, device (physical object) Denture, device (physical object) Active Problem 11/07/2013 1full upper and lower [facility] [place] Problem Active 2013-11-07 21:12:03 Jonathan rial Elvin Hypertensive disorder, systemic arterial (disorder) Hypertensive disorder, systemic arterial (disorder) Active Problem 11/07/2013 [facility] [place] Problem Active 2013-11-07 21:12:03 Niraj Oconnor Arthritis Arth ritis Active Problem 07/18/2013 [facility] Problem Active 2013-07-18 20:52:49 Me car Oconnor Dentures [place] ures Active Problem 07/18/2013 1full upper and lower [facility] Problem Active 2013-07-18 20:52:49 Niraj Oconnor Hard of hearing Hard of hearing Active Problem 07/18/2013 [facility] Problem Active 2013-07-18 20:52:49 Niraj Oconnor Hypertension Hype rtension Active Problem 07/18/2013 [facility] Problem Active 2013-07-18 20:52:49 Pr car Oconnor Psoriasis Psor iasis Active Problem 07/18/2013 [facility] Problem Active 2013-07-18 20:52:49 Pr car Oconnor Rupture of rotator cuff of shoulder Rupture of rotator cuff of shoulder Active Problem 07/18/2013 2right shoulder [facility] Problem Active 2013-07-18 20:52:49 Sally Oconnor Shoulder pain Shou lder pain Active Problem 07/18/2013 3right [facility] Problem Active 2013-07-18 20:52:49 Niraj Oconnor Impaired fasting glycaemia (disorder) Impaired fasting glycaemia (disorder) Active Problem 11/26/2016 [facility] [place] Problem Active 2016-11-26 01:26:31 Niraj Oconnor RT SHOULDER RT S HOULDER Active [facility] [place] Diagnosis Active 2013-10-07 09:56:00 Niraj Oconnor Presence of left artificial knee joint Presence of left artificial knee joint 01/20/2018 04/22/2018 MH BRITTNY [place] Problem 2018-01-20 02:59:06 2018-04-22 11:46:09 2018-04-22 11:46:09 M shaniqua Oconnor Allergies, Adverse Reactions, Alerts Allergy Name Allergy Type Status Severity Reaction(s) Onset Date Inacti ve Date Treating Clinician Comments Source No Known Allergies DA Active U 2015-03-07 00:00:00 [facility] acetaminophen-hydrocodone acetaminophen-hydrocodone Active [facility] NKFA NKFA Active [facility] karyn Social History Social Habit Start Date Stop Date Quantity Comments Source Social History 2016-06-18 16:28:58 2016-06-18 16:28:58 [facility] Medications Ordered Medication Name Filled Medication Name Start Date Stop Da te Current Medication? Ordering Clinician Indication Dosage Frequency Signature (SIG) Comments Components Source solifenacin succinate 5 MG Oral Tablet [VESICARE] 2018-04-28 15:56:00 Yes 5 mg = 1 tab, PO, Daily, 0 Refill(s) [facility] bicalutamide 50 mg oral tablet 2018-04-28 15:56:00 Yes 50 mg = 1 tab, PO, Q24H, 0 Refill(s) [facility] celena tramadol hydrochloride 50 MG Oral Tablet 2017-12-10 21:44:29 Yes 50 mg = 1 tab, PO, Daily, PRN pain, # 30 tab, 0 Refill(s) [facility] tramadol hydrochloride 50 MG Oral Tablet 2017-10-11 16:12:00 Yes 50 mg = 1 tab, PO, BID, PRN pain, # 60 tab, 0 Refill(s) [facility] Famotidine 10 MG Chewable Tablet [Pepcid] 2017-10-11 15:35:00 Yes 10 mg = 1 tab, PO, TID, 0 Refill(s) Jyostna Mares apremilast 30 MG Oral Tablet [Otezla] 2017-10-11 15:35:00 Y es 30 mg = 1 tab, PO, BID, 0 Refill(s) [facility] Ric boss ketorolac 30 mg/mL injectable solution 2013-07-16 15:00:00 No Colin Dee 60 mg, Route: IM , ONCE, Dosing Weight 97.273, kg, Start date: 07/16/13 10:00:00, Stop date: 07/16/13 10:00:00 [facility] 2013-07-16 14:34:00 No Nisha Palacios 1,000 mg, Route: IV, Drug form: INJ, ONCE, Dosing Weight 97.273, kg, PRN Pain, for > or = 50 kg, Start date: 07/16/13 9:34:00 [facility] flumazenil 2013-07-16 14:05:00 No Poncho Tompkins Mcwilliams 0.2 mg, Route: IVP, PRN, Dosing Weight 97.273, kg, PRN Benzodiazepine Reversal, Initial dose, Start date: 07/16/13 9:05:00, Duration: 30 day, Stop date: 08/15/13 9:04:00 [facility] naloxone 2013-07-16 14:05:00 No Poncho Tompkins Mcwilliams 0.04 mg, Route: IVP, Q2MIN, Dosing Weight 97.273, kg, PRN Narcotic Reversal, Start date: 07/16/13 9:05:00, Duration: 8 doses or times, Stop date: Limited # of times [facility] ondansetron 2013-07-16 14:05:00 No Poncho Tompkins Mcwilliams 4 mg, Route: IVP, ONCE, Dosing Weight 97.273, kg, PRN Nausea & Vomiting, Start date: 07/16/13 9:05:00 [facility] metoprolol 2013-07-16 14:05:00 No Poncho Mcwilliams 1 mg, Route: IVP, Q5Min, Dosing Weight 97.273, kg, PRN Elevated BP, Start date: 07/16/13 9:05:00, Duration: 5 doses or times, Stop date: Limited # of times [facility] acetaminophen-hydrocodone 325 mg-5 mg oral tablet 14:05:00 No Poncho Mcwilliams 2 tab, Route: PO, Dosing Weight 97.273, kg, Q4H, PRN Pain Score 4-6, Start date: 07/16/13 9:05:00, Duration: 30 day, Stop date: 08/15/13 9:04:00 [facility] fentanyl 2013-07-16 14:05:00 No Poncho Tompkins Mcwilliams 25 microgram, Route: IVP, Q5Min, Dosing Weight 97.273, kg, PRN Pain Score 4-6, Start date: 07/16/13 9:05:00, Duration: 4 doses or times, Stop date: Limited # of times [facility] hydromorphone 2013-07-16 14:05:00 No Poncho Mcwilliams 0.5 mg, Route: IVP, Q5Min, Dosing Weight 97.273, kg, PRN Pain Score 7-10, Start date: 07/16/13 9:05:00, Duration: 5 doses or times, Stop date: Limited # of times [facility] ropivacaine 0.2% in NS - site 1 550 mL 2013-07-16 14:05:00 No Poncho Mcwilliams Dosing: Per Nerv e Block Dosing Order, Route: NERVE BLOCK, Start date: 07/16/13 9:05:00 550 mL, Dosing Weight 97.273, kg, Duration: 30 day, Stop date: 08/15/13 9:04:00 [facility] Ancef + Sodium Chloride 0.9% IV 100 mL 2013-07-16 12:40:00 No Colin Dee 1 gm, Route: IVP B, ONCE, Dosing Weight 97.273, kg, Start date: 07/16/13 7:40:00, Duration: 1 doses or times, Stop date: 07/16/13 7:40:00 [facility] Humira Pen 40 mg/0.8 mL subcutaneous solution 2013-07-16 12:36:5 0 Yes 40 mg, 0.8 ml, SUB-Q, q2wk, monthly, 1 kit, Substituti on Allowed, KITmonthly [facility] Lactated Ringers Injection IV 1000 mL 2013-07-16 12:32:00 No Canh Vu Palacios 1,000 mL, Rate: 25 m l/hr, Infuse over: 40 hr, Route: IV, Dosing Weight 97.273 kg, Total Volume: 1,000, Start date: 07/16/13 7:32:00, Duration: 30 day, Stop date: 08/15/13 7:31:00 Niraj strong Taclonex 2013-07-10 13:58:11 Yes TOP , Daily, Substitution Allowed [facility] Economy 5/325 oral tablet 2013-07-10 13:57:53 Yes 1 tab, PO, BID, Substitution Allowed, Maintenance Jyotsna Mares meloxicam 15 mg oral tablet 2013-07-10 13:57:42 Yes 15 mg, 1 tab, PO, Daily, Substitution Allowed [facility] aspirin 2013-07-10 13:57:25 Yes 81 mg, PO, Daily, Substitution Allowed [facility] Humira Pen 40 mg/0.8 mL subcutaneous solution 2013-07-10 13:57:1 1 Yes 40 mg, 0.8 ml, SUB-Q, q2wk, 1 kit, Substitution Allowed, KIT [facility] finasteride 5 mg oral tablet 2013-07-10 13:56:58 Yes 5 mg, 1 tab, PO, Daily, Substitution Allowed [facility] benazepril 2013-07-10 13:56:39 Yes 40 mg, PO, Daily, Substitution Allowed [facility] amLODipine 2013-07-10 13:56:25 Yes 5 mg, PO, Daily, Substitution Allowed [facility] atenolol-chlorthalidone 50 mg-25 mg oral tablet 2013-07-10 13:55 :57 Yes 1 tab, PO, Daily, Substitution Allowed, Maintenance [facility] Aleve 2013-07-10 13:55:14 Yes 220 mg , PO, BID, Substitution Allowed [facility] Vital Signs Vital Name Observation Time Observation Value Comments Source Height 2019-04-24 14:10:00 180.34 cm [facility] Weight 2019-04-24 14:10:00 [facility] BMI Calculated 2019-04-24 [facility]:10[facility] 2019-04-24 14:10:00 [facility] Temperature Oral (F) 2019-04-24 14:10:00 97.7 F [facility] Respitory Rate 2019-04-24 14:10:00 Mem[facility] al [facility] Systolic (mm Hg) 2019-04-24 14:10:00 Jonathan rial [facility]vin Diastolic (mm Hg) 2019-04-24 14:10:00 [facility] orial [place] Temperature Oral (F) 2019-01-21 15:01:00 96.9 F [facility] [place] Heart Rate 2019-01-21 15:01:00 [facility] Respitory Rate 2019-01-21 15:01:00 [facility] [place] Weight 2019-01-21 15:01:00 [facility] Height 2019-01-21 15:01:00 180.34 cm [facility] [place] BMI Calculated 2019-01-21 15:01:00 [facility] Systolic (mm Hg) 2019-01-21 15:01:00 Jonathan rial [facility]vin Diastolic (mm Hg) 2019-01-21 15:01:00 Mem o[facility] BMI Calculated 2018-10-15 16:04:00 [facility] Weight 2018-10-15 16:04:00 [facility] [place] Height 2018-10-15 16:04:00 180.34 cm [facility] Temperature Oral (F) 2018-10-15 16:04:00 97.7 F [facility] [place] Respitory Rate 2018-10-15 16:04:00 Memori [facility] Heart Rate 2018-10-15 16:04:00 [facility] [place] Systolic (mm Hg) 2018-10-15 16:04:00 Jonathan rial [place] Diastolic (mm Hg) 2018-10-15 16:04:00 Mem orial [place] Heart Rate 2018-07-18 14:08:00 [facility] Temperature Oral (F) 2018-07-18 14:08:00 97.0 F [facility] [place] Respitory Rate 2018-07-18 14:08:00 Memori al [facility] Height 2018-07-18 14:08:00 180.34 cm [facility] [place] Systolic (mm Hg) 2018-07-18 14:08:00 Jonathan rial [place] Diastolic (mm Hg) 2018-07-18 14:08:00 Mem orial [place] Weight 2018-07-18 14:08:00 [facility] [place] BMI Calculated 2018-07-18 14:08:00 Mem[facility] [place] Weight 2018-04-28 15:54:00 [facility] Height 2018-04-28 15:54:00 180.34 cm [facility] BMI Calculated 2018-04-28 15:54:00 [facility] Systolic (mm Hg) 2018-04-28 15:54:00 Jonathan rial [place] Diastolic (mm Hg) 2018-04-28 15:54:00 Mem orial [place] Temperature Oral (F) 2018-04-28 15:54:00 97.2 F [facility] [place] Heart Rate 2018-04-28 15:54:00 [facility] [place] Respitory Rate 2018-04-28 15:54:00 Memori [facility] Weight 2018-04-11 14:45:00 [facility] [place] BMI Calculated 2018-04-11 14:45:00 [facility] [place] Respitory Rate 2018-04-11 14:45:00 [facility] Height 2018-04-11 14:45:00 180.34 cm [facility] Temperature Oral (F) 2018-04-11 14:45:00 97.2 F [facility] Heart Rate 2018-04-11 14:45:00 [facility] Systolic (mm Hg) 2018-04-11 14:45:00 Jonathan rial [place] Diastolic (mm Hg) 2018-04-11 14:45:00 Mem orial [facility] Weight 2018-01-09 14:55:00 [facility] BMI Calculated 2018-01-09 14:55:00 Memori [facility] Temperature Oral (F) 2018-01-09 14:55:00 97.1 F [facility] [place] Respitory Rate 2018-01-09 14:55:00 Memori al [facility] Heart Rate 2018-01-09 14:55:00 [facility] Systolic (mm Hg) 2018-01-09 14:55:00 Jonathan rial [place] Diastolic (mm Hg) 2018-01-09 14:55:00 Mem orial [facility] Height 2018-01-09 14:55:00 180.34 cm [facility] Height 2017-12-10 21:07:00 180.34 cm [facility] [place] BMI Calculated 2017-12-10 21:07:00 [facility] [place] Weight 2017-12-10 21:07:00 [facility] [place] Temperature Oral (F) 2017-12-10 21:07:00 97.9 F [facility] Heart Rate 2017-12-10 21:07:00 [facility] [place] Respitory Rate 2017-12-10 21:07:00 [facility] [place] Systolic (mm Hg) 2017-12-10 21:07:00 Jonathan rial [place] Diastolic (mm Hg) 2017-12-10 21:07:00 Mem orial [place] BMI Calculated 2017-10-11 15:34:00 [facility] [place] Weight 2017-10-11 15:34:00 [facility] [place] Height 2017-10-11 15:34:00 180.34 cm [facility] Respitory Rate 2017-10-11 15:34:00 [facility] [place] Heart Rate 2017-10-11 15:34:00 [facility] [place] Systolic (mm Hg) 2017-10-11 15:34:00 Jonathan rial [facility]vin Diastolic (mm Hg) 2017-10-11 15:34:00 Mem orial [place] Temperature Oral (F) 2017-10-11 15:34:00 97.5 F [facility] Diastolic (mm Hg) 2013-07-16 16:00:00 Mem orial [place] Systolic (mm Hg) 2013-07-16 16:00:00 Jonathan rial [place] Systolic (mm Hg) 2013-07-16 15:45:00 Jonathan rial [facility] Diastolic (mm Hg) 2013-07-16 15:45:00 Mem orial [place] Systolic (mm Hg) 2013-07-16 15:30:00 Jonathan rial [place] Diastolic (mm Hg) 2013-07-16 15:30:00 Mem orial [place] Respitory Rate 2013-07-16 14:30:00 Memori al [facility] Respitory Rate 2013-07-16 14:15:00 Memori [facility] [place] Heart Rate 2013-07-16 11:15:00 [facility] [place] Height 2013-07-10 13:48:00 180.34 cm [facility] [place] Weight 2013-07-10 13:48:00 [facility] [place] Heart Rate 2013-07-10 13:48:00 [facility] [place] Respitory Rate 2013-07-10 13:48:00 Memori [facility] [place] Temperature Oral (F) 2013-07-10 13:48:00 97.6 F [facility] [place] Procedures Procedure Date / Time Performed Performing Clinician [facility] e Procedure on prostate 2010-11-04 00:00:00 Memori al [facility] Prostatectomy 2010-11-04 00:00:00 [facility] strong Biopsy of [facility] Cataract surgery<sup>1</sup> Mem orial [facility] Cryotherapy<sup>2</sup> [facility] Procedure on knee<sup>3, 4</sup> [facility] [place] Cryotherapy [facility] Encounters Start Date/Time End Date/Time En[facility] Source 2019-05-13 14:46:06 2019-05-14 23:59:59 Outpatient [facility] [id number] 2019-04-24 09:15:00 2019-04-24 23:59:59 [facility] [id number] 2019-01-21 10:15:00 2019-01-21 23:59:59 [facility] [id number] 2019-01-12 12:01:00 2019-01-13 23:59:59 Outpatient [facility] MG [id number] 2018-10-15 10:00:00 2018-10-15 23:59:59 [facility] [id number] 2018-07-18 09:00:00 2018-07-18 23:59:59 [facility] [id number] 2018-04-28 11:00:00 2018-04-28 23:59:59 [facility] [id number] 2018-04-11 09:30:00 2018-04-11 23:59:59 [facility] [id number] 2018-01-23 15:35:00 2018-01-24 23:59:59 Outpatient [facility] MG [id number] 2017-12-16 14:54:00 2018-01-14 23:59:00 Outpatient Marcello Newton [id number] 2018-01-09 09:00:00 2018-01-09 23:59:59 [facility] [id number] 2017-11-15 13:20:00 2017-12-14 23:59:00 Outpatient Marcello Newton [id number] 2017-12-10 15:00:00 2017-12-10 23:59:59 [facility] [id number] 2017-10-15 11:50:00 2017-11-13 23:59:00 Outpatient Marcello Newton [id number] 2017-10-15 11:50:00 2017-11-13 23:59:00 Outpatient Marcello Newton [id number] 2017-10-11 09:30:00 2017-10-11 23:59:59 Outpatient Kathe De León [facility] [id number] 2016-10-25 13:47:00 2016-11-23 23:59:00 Outpatient Marcello Newton [id number] 2016-09-21 07:50:00 2016-10-20 23:59:00 Outpatient Marcello Newton [id number] 2016-08-16 07:53:00 2016-08-16 23:59:00 Outpatient Chao Alexysgiselle Garza [facility] [id number] 2013-10-07 09:00:00 2013-11-05 23:59:00 Outpatient MHIE MHIE [id number] [facility] 2013-09-07 10:45:00 2013-10-06 23:59:00 Outpatient MHIE MHIE [id number] [facility] 2013-08-03 13:36:00 2013-09-01 23:59:00 Outpatient MHIE MHIE [id number] [facility] 2013-08-03 13:36:00 2013-09-01 23:59:00 Outpatient MHIE MHIE [id number] [facility] 2013-08-03 13:36:00 2013-09-01 23:59:00 Outpatient MHIE MHIE [id number] [facility] [place] 2013-08-03 13:36:00 2013-09-01 23:59:00 Outpatient [facility] [id number] [facility] [place] 2013-08-03 13:36:00 2013-09-01 23:59:00 Outpatient [facility] [id number] [facility] [place] 2013-08-03 13:36:00 2013-09-01 23:59:00 Outpatient [facility] [id number] [facility] [place] Results Test Description Test Time Test Comments Results Result Comments Source CHEMISTRY 2013-07-10 14:30:00 3.9 [facility] [place] CHE[facility] 2013-07-10 14:30:00 143 [facility] [place] CHEMISTRY 2013-07-10 14:30:00 105 [facility] [place] CHEMISTR[facility] 2013-07-10 14:30:00 76 [facility] CHEMISTRY 2013-07-10 14:30:00 8.8 [facility] [place] CHEMISTRY 2013-07-10 14:30:00 1.0 [facility] [place] CHEMISTRY 2013-07-10 14:30:00 29 [facility] [place] CHEMISTRY 2013-07-10 14:30:00 101 [facility] [place] CHEMISTRY 2013-07-10 14:30:00 20 [facility] [place] CHEMISTRY 2013-07-10 14:30:00 12.9 [facility] [place] HEMATOLOGY 2013-07-10 14:30:00 6.3 [facility] [place] HEMATOLOGY 2013-07-10 14:30:00 0.4 [facility] [place] HEMATOLOGY 2013-07-10 14:30:00 1.1 [facility] [place] HEMAT[facility] 2013-07-10 14:30:00 9.7 [facility] [place] HEMATOLOGY 2013-07-10 14:30:00 0.0 [facility] [place] HEMAT[facility] 2013-07-10 14:30:00 0.1 [facility] [place] HEMATOLOGY 2013-07-10 14:30:00 0.9 [facility] [place] HEMATOLOGY 2013-07-10 14:30:00 2.0 [facility] [place] HEMATOLOGY 2013-07-10 14:30:00 21.1 [facility] [place] HEMATOLOGY 2013-07-10 14:30:00 67.7 [facility] [place] HEMATOLOGY 2013-07-10 14:30:00 0.95 [facility] [place] HEMATOLOGY 2013-07-10 14:30:00 Test Item PTT (test code = PTT) 31.9 s 22.9-35.8 N [facility] DsvbbuyTZCXMCELKB2559-40-03 14:30:00* Test Item Value Reference Range Interpretation Comments PT (test code = PT) 12.6 s 12.0-14.7 N [facility] MmjmcnlTSVKAJSVRN5271-11-60 14:[facility] 2013-[facility]10 14:30:0033.2[facility] KhsertnAPBZDNJDJO8190-02-58 14:30:0085.8[facility] YxcwsnpZASWQONVQW7078-60-49 14:30:00* Test Item Value Reference Range Interpretation Comments MCH (test code = MCH) 28.4 pg 27.0-31.0 N [facility]HT[facility]UT[facility]OVKC3760-37-79 14:30:0038.2[facility] 2013-07-10 14:30:0014.0[facility] MsiqxgtYZLBJFQXXD2511-33-94 14:30:004.45[facility] YrjvlknNOJCWCDEXI6891-08-08 14:30:009.3[facility] CrnubykWAJBNPZNHE6080-98-91 14:30:0012.7[facility] VlzltaqOBSDCWHRKY3724-80-01 14:30:62369Iyvbjalf HermannKNEE LEFT 1-2 VIEWS [place] [address] Patient Name: ARLENE GONZALEZ MR #: [id number] : 1945 Age/Sex: 72/M Req #: [id number] Adm Physician: MARCELLO NEWTON MD Ordered by: MARCELLO NEWTON MD Report #: [id number] Location: MED/SURG Room/Bed: [facility] Procedure: [id number] DX/KNEE LEFT 1-2 VIEWS Exam Date: 09/09/17 [...] anatomic alignment. Joseph Ramirez M.D. Dictated by: Josehp Ramirez M.D. on 09/09/2017 at 18:31 Electronically approved by: Joseph Ramirez M.D. on 09/09/2017 at 18: 31 Dictated By: LEOLA RAMIREZ MD, MD 30 Transcribed By: SHANIQUA on 09/09/171830 COPY TO: MARCELLO NEWTON MD Stress Test - Treadmill ONLY [place] [address] Patient Name : ARLENE GONZALEZ MR #: [id number] : 1945 Age/Sex: 72/M Adm Physi abimbola : MARY HERNANDEZ MD Admit Date : 08/05/17 Location : [facility]/Bed : [facility] 1781 REPORT: Cardiology Report DATE OF STUDY: [...] ities. 3. Ejection fraction is 65%. Job#: [id number] Signature Date Dic tated By: ADARSH BRADLEY MD Transcribed By: SIS on 08/07/17 < Electronically signed by ADARSH BRADLEY MD><<Signature on File>>08/12/17 8232 COPY TO: CHEST 2 VIEWS [place] [address] Patient Name: ARLENE GONZALEZ MR #: [id number] : 1945 Age/Sex: 72/M Req #: [id number] Adm Physician: Ordered by: TIFFANIE AGEE MD Report #: [id number] Location: ER Room/Bed: Procedure: [id number] DX/CHEST 2 VIEWS Exam Date: Exam Time: [...]
[2020-04-11] MEDS ORDERED: DEXTROSE 50% SYRINGE 50 ML IV PRN (07:45)
[2020-04-11] MEDS: INSULIN LISPRO 100 UNIT/1 ML 3ML VIAL SQ SCH ×5 (07:54→20:42)
[2020-04-11] MEDS ORDERED: INSULIN LISPRO 100 UNIT/1 ML 3ML VIAL SQ ONE (07:56)
[2020-04-11] MEDS: FAMOTIDINE 20 MG/2 ML VIAL IV SCH ×2 (08:05→16:54)
--- NOTE | 2020-04-11 08:10 | NUR ---
DR. Mary HERNANDEZ AT BEDSIDE EVALUATING PATIENT
[2020-04-11] MEDS ORDERED: METOPROLOL TARTRATE INJ 1 MG/ML VIAL IV PRN (09:15)
[2020-04-11] MEDS ORDERED: HYDRALAZINE HCL 20 MG/ML VIAL IV PRN (09:15)
[2020-04-11 09:54] LABS: MAGNESIUM 1.7 MG/DL (1.3-2.1); PHOSPHORUS 3.3 MG/DL (2.3-4.7)
[2020-04-11] MEDS ORDERED: INSULIN GLARGINE 100 UNITS/ML VIAL SQ ONE (10:00)
[2020-04-11] MEDS ORDERED: POTASSIUM CHLORIDE 10MEQ EA PO SCH (10:00)
[2020-04-11] MEDS: AMLODIPINE BESYLATE 5 MG TAB PO SCH (11:29)
[2020-04-11] MEDS: METOPROLOL TARTRATE 50 MG TAB PO SCH ×2 (11:43→16:54)
--- NOTE | 2020-04-11 14:04 | History and Physical ---
CHIEF COMPLAINT: Angioedema, swelling of the tongue. PRIMARY CARE PHYSICIAN: Dr. Levy Shetty. HISTORY OF PRESENT ILLNESS: The patient is a 75 years male who woke up approximately 2 a.m. this morning, found that his tongue was swelling. The patient only remember that he only took the different medication, only took Lipitor that night. The patient stated that during the dinnertime, he did eat some tacos at [employer]. The patient is otherwise stable. He was given Solu-Medrol and Benadryl and he is doing much better now. The patient has no chest pain or shortness of breath. His heart rate is elevated. The patient is otherwise stable. PAST MEDICAL HISTORY: Prostate cancer. History of previous TURP. Rotator cuff repair. Dyslipidemia, hypertension, psoriasis, reflux. Diabetes type 2, on Humalog insulin. SOCIAL HISTORY: The patient does not smoke or use alcohol. No regular drugs. ALLERGIES: TO HYDROCODONE AND POSSIBLE ATORVASTATIN. HOME MEDICATIONS: The patient is on Norvasc, aspirin, atenolol, chlorthalidone combination. AcipHex. Otezla. PHYSICAL EXAMINATION: VITAL SIGNS: Temperature is 98, blood pressure 163/79, pulse rate is 111, respiration 20. GENERAL: The patient seemed comfortable. He is not in any distress. HEENT: Normocephalic and atraumatic. Pupils reactive. Anicteric. NECK: Supple grossly. Tongue swelling has resolved. No angioedema now. CARDIOVASCULAR: Tachycardia. ABDOMEN: Soft. EXTREMITIES: No cyanosis or edema NEUROLOGIC: No gross focal deficit. LABORATORY DATA: WBC is 10, hemoglobin is 12.8, hematocrit 38.6, and platelets 280. Chemistry; sodium 142, potassium 3.4, chloride 108, bicarb 22, BUN is 21, creatinine 1.2, and glucose is 174. IMAGING TESTS: None. IMPRESSION: 1. Tongue angioedema, could be food allergy. However, the patient's family remember that he took atorvastatin prior to his going to sleep. We will hold atorvastatin for now. 2. Tachycardia, sinus, most likely because he is needing his medication atenolol. 3. Hypokalemia, mildly at 3.4 secondary to combination of diuretic chlorthalidone for his blood pressure. 4. The patient has hypertension, dyslipidemia, psoriasis, and history of prostate cancer, they are all stable. The patient had a stress test in the recent past that was otherwise unremarkable. PLAN: Resume home medication except for the Lipitor for now. Stop the chlorthalidone. Potassium replacement. Stop IV fluids. Stop steroids that are given in the emergency room on a scheduled basis. Continue to monitor the patient closely. Hydralazine as needed for increase in blood pressure. Lopressor IV for increased heart rate. We will start the patient on Lopressor 50 mg twice a day. Resume the patient's other home medication. We will monitor the patient closely. MD IDA Sauer/RUTH /[id number]
[2020-04-11 15:00] VITALS: BP 135/81
[2020-04-11] MEDS: NON-FORMULARY MEDICATION ([Otezla] 30 MG) PO SCH (16:55)
[2020-04-11 20:18] VITALS: BP 162/71
[2020-04-11 20:24] VITALS: BP 162/71
--- NOTE | 2020-04-11 23:38 | NUR ---
PT IS TRANSFERRED FROM ICU /DENIES PAIN .RESPIRATIONS ARE EVEN AND UNLABORED .CALL LIGHT WITH IN REACH .CONTINUE TO MONITOR Addendum: 04/12/20 at 0206 by Brooks May RN WRONG INFORMATION
[2020-04-12 00:17] VITALS: BP 138/68
[2020-04-12 01:44] VITALS: BP 138/68
--- NOTE | 2020-04-12 02:07 | NUR ---
PT IS TRANSFERRED FROM IMCU/DENIES PAIN .RESPIRATIONS ARE EVEN AND UNLABORED .CALL LIGHT WITH IN REACH .CONTINUE TO MONITOR
[2020-04-12 04:40] VITALS: BP 103/55
--- NOTE | 2020-04-12 05:00 | NUR ---
PT RESTING DENIES PAIN .CALL LIGHT WITH IN REACH .CONTINUE TO MONITOR
[2020-04-12 05:47] LABS: ANION GAP 15.8 mmol/L (8-16); BLOOD UREA NITROGEN 21 mg/dL (7-26); BUN/CREATININE RATIO 22 (6-25); CALCIUM 10.6 mg/dL (8.4-10.2); CARBON DIOXIDE 22 mmol/L (22-29); CHLORIDE 107 mmol/L (98-107); CREATININE, SERUM 0.96 mg/dL (0.72-1.25); EST GLOMERULAR FILTRATION RATE > 60 ML/MIN (60-); GLUCOSE 132 mg/dL (74-118); POTASSIUM 3.8 mmol/L (3.5-5.1); SODIUM 141 mmol/L (136-145)
--- NOTE | 2020-04-12 07:00 | NUR ---
Received bedside shift report from off going night nurse. Patient in stable condition, no s/s of distress noted. no pain voiced. telemetry applied. Bed in lowest position and locked. Call light within reach.
--- NOTE | 2020-04-12 07:06 | NUR ---
BEDSIDE REPORT GIVEN TO THE ONCOMING NURSE
[2020-04-12] MEDS ORDERED: PANTOPRAZOLE SOD 40 MG TABEC PO SCH (07:30)
[2020-04-12 08:06] VITALS: BP 113/68
[2020-04-12 08:20] VITALS: BP 113/68
[2020-04-12] MEDS: FAMOTIDINE 20 MG/2 ML VIAL IV SCH (08:31)
[2020-04-12] MEDS: METOPROLOL TARTRATE 50 MG TAB PO SCH (08:32)
[2020-04-12] MEDS: AMLODIPINE BESYLATE 5 MG TAB PO SCH (08:33)
[2020-04-12] MEDS: NON-FORMULARY MEDICATION ([Otezla] 30 MG) PO SCH (09:00)
[2020-04-12] MEDS ORDERED: ASPIRIN 81 MG CHEW TAB PO SCH (09:00)
[2020-04-12] MEDS: INSULIN LISPRO 100 UNIT/1 ML 3ML VIAL SQ SCH ×2 (09:45→09:46)
[2020-04-12] MEDS ORDERED: POTASSIUM CHLO10 ME1 PO (09:55)
--- NOTE | 2020-04-12 10:26 | NUR ---
Patient discharged home- Patient off the unit @1020 via wheelchair accompanied by RN to the lobby. Patient in stable condition, No s/s of distress noted. No pain voiced. IV access removed with tip intact. All personal items taken with the patient. Discharge teaching and instruction given to the patient. Patient verbalized understanding. Prescription given to the patient along with discharge paperwork.
--- NOTE | 2020-04-12 12:43 | Discharge Summary ---
The patient was on observation. PRIMARY CARE PHYSICIAN: Levy Shetty MD FINAL DIAGNOSIS: Angioedema. SUMMARY: The patient is a 75-year-old male, who eat some tacos, but also noticed that when he took the Lipitor before he go to bed he woke up in the middle of the night with tongue swelling. The patient took Lipitor since February. He could not recall whether it is from the medication or from the food. Regardless, his angioedema completely resolved. The patient is otherwise stable. He will go home today, follow up with his family physician, Dr. Levy Shetty, and decide whether he will be introduced the Lipitor or not. Currently, the patient is stable. Potassium was slightly low and replaced. He was on atenolol and chlorthalidone combination. He may need just a slight potassium 10 mEq daily for adjustment of the lack of potassium. Discharged home today, 2 g sodium diet, and follow up with family physician, activity as tolerated. MD IDA Sauer/RUTH /[id number]
== END 2020-04-12 10:20 | disposition home or self-care (01) ==
LOC: ER 02:08 → INTOOBSV 06:43 → ERHOLD 06:43 → IMCU 14:24 → MED/SURG2 23:23
PROVIDERS: ADMIT Internal Medicine; ATTEND Internal Medicine
DX: T78.3XXA Angioneurotic edema, initial encounter (principal); R00.0 Tachycardia, unspecified; E87.6 Hypokalemia; I10 Essential (primary) hypertension; E78.5 Hyperlipidemia, unspecified; L40.9 Psoriasis, unspecified; Z85.46 Personal history of malignant neoplasm of prostate
CPT/HCPCS: 36415; 80048; 82550; 82553; 82948; 83735; 84100; 84443; 84484; 85025; 87635; 93005; 99284; G0378; J0171; J0360; J1200; J1815; J2920; J2930; J7030

== ENCOUNTER 2020-06-07 09:14 | Emergency (ER) | payer MEDICARE, OTHER ==
[~2020-06-07] VITALS: Ht 180.3 cm; Wt 98.0 kg
[~2020-06-07 09:14] MED LIST changes: +POTASSIUM CHLO10 ME1 PO
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
--- OUTSIDE RECORDS SUMMARY | 2020-06-07 09:32 | XMS REPORT | Continuity of Care Document ---
Author Author [facility] t Organization 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 Name Role Phone MD Dinesh JONES PCP Kathe De León Attphys Kayla Newton Attphys MARCELLO NEWTON Attphys Unavailable MARY HERNANDEZ Attphys Unavailable MARCELLO NEWT[place] Admphys Unavailable MARY HERNANDEZ Admphys Unavailable Payers Payer Name Policy Type Policy Number Effective Date Expiration Date Dinesh campos [facility] [id number] [facility] Problems Condition Name Condition Details Condition Category Status Onset Date Resolution Date Last Treatment Date Treating Clinician Comments Source S/P LT TKA S/P LT TKA Active 11/04/2017 [facility] [place] Diagnosis Active 2017-11-04 08:00:00 2017-11-15 13:26:00 Niraj Oconnor LEFT KNEE LEFT KNEE Active 09/09/2017 [facility] [place] Diagnosis Active 2017-09-09 08:00:00 2017-12-18 16:58:00 Niraj Oconnro S83.242A - "OTH TEAR OF MEDIAL MENISCUS, S83.242A - "OTH TEAR OF MEDIAL MENISCUS, Active 08/14/2016 [facility] [place] Diagnosis Active 2016-08-14 00:01:00 2016-08-16 08:01:00 shaniqua Oconnor Hyperlipidemia (disorder) Hype rlipidemia (disorder) Active 03/23/2014 Problem 11/26/2016 Data migrated from [facility] on 04/05/15.Data migrated from [employer] on 04/05/15. TEN Buitragoa,[facility] [place] Problem Active 2014-03-23 00:00:00 2016-11-26 01:26:31 [facility] Body mass index 30+ - obesity (finding) Body mass index 30+ - obesity (finding) Active 12/22/2013 Problem 05/16/2019 Data migrated from [employer] on 04/05/15.Data migrated from [employer] on 04/05/15. Medical Group, JOVANAWard Joce,[facility] [place] Problem Active 201 02-03-18 00:00:00 2019-05-16 23:54:13 [facility] Her strong 840.4/726.2/726.10/719.41/840.7 840.4/726.2/726.10/719.41/840.7 Active 07/02/2013 [facility] Active 2013-07-02 00:00:00 2013-07-20 12:41:00 shaniqua Oconnor UNK UNK Active 07/02/2013 [facility] Diagnosis Active 2013-07-02 00:00:00 2013-07-07 13:28:00 M shaniqua Oconnor 715.0 - GENERAL OSTEOAR 715. 0 - GENERAL OSTEOAR Active 06/08/2013 TEN [place] Diagnosis Active 2013-06-08 00:01:00 2013-06-16 12:49:00 [facility] Chest pain Problem Active [facility] Angioedema Problem Active [facility] Pain in left knee Pain in left knee 03/22/2018 [facility] [place] Problem 2018-03-22 11:12:35 [facility] Muscle weakness (generalized) Muscle weakness (generalized) 04/22/2018 [facility] [place] Problem 2018-04 11:46:09 [facility] Difficulty in walking, not elsewhere classified Difficulty in walking, not elsewhere classified 04/22/2018 [facility] [place] Problem 2018-04-22 11:46:09 [facility] Stiffness of unspecified joint, not elsewhere classifi ed Stiffness of unspecified joint, not elsewhere classified 04/22/2018 [facility] [place] Problem 2018-04-22 11:46:09 [facility] [place] Essential (primary) hypertension Essential (primary) hypertension 02/19/2018 [facility] [place] Problem 14:34:19 [facility] [place] Stiffness of left knee, not elsewhere classified Stiffness of left knee, not elsewhere classified 04/22/2018 [facility] [place] Problem 2018-04-22 11:46:09 [facility] Radiation (physical force) Rad iation (physical force) Resolved Problem 11/07/2013 [facility] [place] Problem Resolved 2013-11-07 21:12:03 [facility] Prostate carcinoma Pros thompson carcinoma Resolved Problem 07/18/2013 [facility] Problem Resolved 2013-07-18 20:52:49 [facility] Radiation Radi ation Resolved Problem 07/18/2013 [facility] Problem Resolved 2013-07-18 20:52:49 M shaniqua Oconnor Arthritis (disorder) Arth ritis (disorder) Active Problem 11/16/2017 [facility] [place] [facility] Active 2017-11-16 08:01:56 [facility] Benign hypertension (disorder) Benign hypertension (disorder) Active Problem 05/16/2019 Data migrated from [employer] on 04/05/15.Data migrated from [employer] on 04/05/15. [facility] [place] [facility] Active 2019-05-16 23:54:13 Niraj Oconnor Osteoarthritis of knee (disorder) Osteoarthritis of knee (disorder) Active Problem 05/16/2019 [facility] [place] Problem Active 2019-05-16 23:54:13 Memor arleen Oconnor Diabetes mellitus (disorder) D iabetes mellitus (disorder) Active Problem 05/16/2019 [facility] [place] Problem Active 2019-05-16 23:54:13 Memnetta Oconnor Dyspnea (finding) Dysp benji (finding) Active Problem 05/16/2019 [facility] [place] Problem Active 2019-05-16 23:54:13 Niraj Oconnor Gastroesophageal reflux disease (disorder) Gastroesophageal reflux disease (disorder) Active Problem 05/16/2019 [facility] [place] Problem Active 2019-05-16 23:54:13 [facility] Hearing loss (finding) Hear ing loss (finding) Active Problem 05/16/2019 Medical Group, OPID [place], [facility] [place] Problem Active 2019-05-16 23:54:13 Sally Oconnor History of malignant neoplasm of prostate (situation) History of malignant neoplasm of prostate (situation) Active Problem 05/16/2019 Medical Group, OP[facility] [place], [facility] [place] Problem Active 2019-05-16 23:54:13 Niraj Oconnor History of operative procedure on knee (situation) History of operative procedure on knee (situation) Active Problem 05/16/2019 [facility], [facility] [place] Problem Active 2019-05-16 23:5 4:13 Niraj Oconnor Knee pain (finding) Knee pain (finding) Active Problem 05/16/2019 Medical Group Problem Active 2019-05-16 23:54:13 Niraj Oconnor Mixed hyperlipidemia (disorder) Mixed hyperlipidemia (disorder) Active Problem 05/16/2019 [facility], [facility] [place] Problem Active 2019-05-16 23:54:13 Sally Oconnor Obesity (disorder) Obes ity (disorder) Active Problem 05/16/2019 Data migrated from [employer] on 04/05/15.Data migrated from [employer] on 04/05/15. Medical Group, OPID [place], [facility] [place] Problem Active 2019-05-16 23:54:13 Sally Oconnor Carcinoma of prostate (disorder) Carcinoma of prostate (disorder) Active Problem 05/16/2019 Medical Group, OPID [place], [facility] [place] Problem Active 2019-05-16 23:54:13 Jonathan Oconnor Psoriasis (disorder) Psor iasis (disorder) Active Problem 05/16/2019 Data migrated from [employer] on 04/05/15.Data migrated from [employer] on 04/05/15. Medical Group, OPID [place], [facility] [place] Problem Active 2019-05-16 23:54:13 Sally Oconnor Right upper quadrant pain (finding) Right upper quadrant pain (finding) Active Problem 05/16/2019 Medical Group, OPID [place], [facility] [place] Problem Active 2019-05-16 23:54:13 Jonathan Oconnor Rotator cuff syndrome (disorder) Rotator cuff syndrome (disorder) Active Problem 05/16/2019 right shoulder Medical Group, TEN Hobson,[facility] [place] Problem Active 2019-05-16 23:54:13 Niraj Oconnor Shoulder pain (finding) Shou lder pain (finding) Active Problem 05/16/2019 right Medical Group, TEN Hobson,[facility] [place] Problem Active 2019-05-16 23:54:13 Memor ial [facility] Weight loss finding (finding) Weight loss finding (finding) Active Problem 05/16/2019 Medical Group,[facility] [place] Problem Active 2019-05-16 23:54:13 Memor ial [place] Denture, device (physical object) Denture, device (physical object) Active Problem 11/07/2013 1full upper and lower [facility] [place] Problem Active 2013-11-07 21:12:03 Jonathansukhdeep Oconnor Hypertensive disorder, systemic arterial (disorder) Hypertensive disorder, systemic arterial (disorder) Active Problem 11/07/2013 [facility] [place] Problem Active 2013-11-07 21:12:03 Niraj Oconnor Arthritis Arth ritis Active Problem 07/18/2013 [facility] Problem Active 2013-07-18 20:52:49 Me car Oconnor Dentures Surprise ures Active Problem 07/18/2013 1full upper and lower [facility] Problem Active 2013-07-18 20:52:49 Niraj Oconnor Hard of hearing Hard of hearing Active Problem 07/18/2013 [facility] Problem Active 2013-07-18 20:52:49 Niraj Oconnor Hypertension Hype rtension Active Problem 07/18/2013 [facility] Problem Active 2013-07-18 20:52:49 Al car Oconnor Psoriasis Psor iasis Active Problem 07/18/2013 [facility] Problem Active 2013-07-18 20:52:49 Al car Oconnor Rupture of rotator cuff of shoulder Rupture of rotator cuff of shoulder Active Problem 07/18/2013 2right shoulder [facility] Problem Active 2013-07-18 20:52:49 [facility] Shoulder pain Shou lder pain Active Problem 07/18/2013 3right [facility] Problem Active 2013-07-18 20:52:49 Niraj Oconnor Impaired fasting glycaemia (disorder) Impaired fasting glycaemia (disorder) Active Problem 11/26/2016 TEN Buitragoa,[facility] [place] Problem Active 2016-11-26 01:26:31 Niraj Oconnor RT SHOULDER RT S HOULDER Active [facility] [place] Diagnosis Active 2013-10-07 09:56:00 Niraj Oconnor Presence of left artificial knee joint Presence of left artificial knee joint 01/20/2018 04/22/2018 [facility] [place] Problem 2018-01-20 02:59:06 2018-04-22 11:46:09 2018-04-22 11:46:09 M shaniqua Oconnor Allergies, Adverse Reactions, Alerts Allergy Name Allergy Type Status Severity Reaction(s) Onset Date Inacti ve Date Treating Clinician Comments Source Atorvastatin Allergy to substance Active Severe ANGIOEDEMA 04-11 00:00:00 [facility] Hydrocodone Allergy to substance Active Mild HALLICINATIONS 20 19-08-24 00:00:00 [facility] No Known Allergies DA Active U 2015-03-07 00:00:00 [facility] acetaminophen-hydrocodone acetaminophen-hydrocodone Active [facility] NKFA NKFA Active [facility] Social History Social Habit Start Date Stop Date Quantity Comments Source Social History 2016-06-18 16:28:58 2016-06-18 16:28:58 [facility] Sex Assigned At 1945 00:00:00 1945 00:00:00 Male [facility] Medications Ordered Medication Name Filled Medication Name Start Date Stop Da te Current Medication? Ordering Clinician Indication Dosage Frequency Signature (SIG) Comments Components Source solifenacin succinate 5 MG Oral Tablet [VESICARE] 2018-04-28 15:56:00 Yes 5 mg = 1 tab, PO, Daily, 0 Refill(s) [facility] bicalutamide 50 mg oral tablet 2018-04-28 15:56:00 Yes 50 mg = 1 tab, PO, Q24H, 0 Refill(s) [facility] Lucio [place] tramadol hydrochloride 50 MG Oral Tablet 2017-12-10 21:44:29 Yes 50 mg = 1 tab, PO, Daily, PRN pain, # 30 tab, 0 Refill([facility]) [facility] tramadol hydrochloride 50 MG Oral Tablet 2017-10-11 16:12:00 Yes 50 mg = 1 tab, PO, BID, PRN pain, # 60 tab, 0 Refill(s) [facility] Famotidine 10 MG Chewable Tablet [Pepcid] 2017-10-11 15:35:00 Yes 10 mg = 1 tab, PO, TID, 0 Refill(s) Jyotsna zaman Elvin apremilast 30 MG Oral Tablet [Otezla] 2017-10-11 15:35:00 Y es 30 mg = 1 tab, PO, BID, 0 [facility](s) [facility] mg/mL injectable solution 2013-07-16 15:00:00 No Colin Morales Moreno 60 mg, Route: IM , ONCE, Dosing Weight 97.273, kg, Start date: 07/16/13 10:00:00, Stop date: 07/16/13 10:00:00 [facility] 2013-07-16 14:34:00 No Nisha Lawler Palacios 1,000 mg, Route: IV, Drug form: INJ, ONCE, Dosing Weight 97.273, kg, PRN Pain, for > or = 50 kg, Start date: 07/16/13 9:34:00 [facility] flumazenil 2013-07-16 14:05:00 No Poncho Tompkins Mcwilliams 0.2 mg, Route: IVP, PRN, Dosing Weight 97.273, kg, PRN Benzodiazepine Reversal, Initial dose, Start date: 07/16/13 9:05:00, Duration: 30 day, Stop date: 08/15/13 9:04:00 [facility] naloxone 2013-07-16 14:05:00 No Poncho Tompkins Mcwilliams 0.04 mg, Route: IVP, Q2MIN, Dosing Weight 97.273, kg, PRN Narcotic Reversal, Start date: 07/16/13 9:05:00, Duration: 8 doses or times, Stop date: Limited # of times [facility] ondansetron 2013-07-16 14:05:00 No Poncho Tompkins Mcwilliams 4 mg, Route: IVP, ONCE, Dosing Weight 97.273, kg, PRN Nausea & Vomiting, Start date: 07/16/13 9:05:00 [facility] metoprolol 2013-07-16 14:05:00 No Poncho Tompkins Cmwilliams 1 mg, Route: IVP, Q5Min, Dosing Weight 97.273, kg, PRN Elevated BP, Start date: 07/16/13 9:05:00, Duration: 5 doses or times, Stop date: Limited # of times Niraj Oconnor acetaminophen-hydrocodone 325 mg-5 mg oral tablet 14:05:00 No Poncho Mcwilliams 2 tab, Route: PO, Dosing Weight 97.273, kg, Q4H, PRN Pain Score 4-6, Start date: 07/16/13 9:05:00, Duration: 30 day, Stop date: 08/15/13 9:04:00 Niraj Oconnor fentanyl 2013-07-16 14:05:00 No Poncho Mcwilliams 25 microgram, Route: IVP, Q5Min, Dosing Weight 97.273, kg, PRN Pain Score 4-6, Start date: 07/16/13 9:05:00, Duration: 4 doses or times, Stop date: Limited # of times Niraj Oconnor hydromorphone 2013-07-16 14:05:00 No Poncho Mcwilliams 0.5 mg, Route: IVP, Q5Min, Dosing Weight 97.273, kg, PRN Pain Score 7-10, Start date: 07/16/13 9:05:00, Duration: 5 doses or times, Stop date: Limited # of times Niraj Oconnor ropivacaine 0.2% in NS - site 1 550 mL 2013-07-16 14:05:00 No Poncho Mcwilliams Dosing: Per Nerv e Block Dosing Order, Route: NERVE BLOCK, Start date: 07/16/13 9:05:00 550 mL, Dosing Weight 97.273, kg, Duration: 30 day, Stop date: 08/15/13 9:04:00 Niraj Oconnor Ancef + Sodium Chloride 0.9% IV 100 mL 2013-07-16 12:40:00 No Colin Dee 1 gm, Route: IVP B, ONCE, Dosing Weight 97.273, kg, Start date: 07/16/13 7:40:00, Duration: 1 doses or times, Stop date: 07/16/13 7:40:00 Niraj Oconnor Humira Pen 40 mg/0.8 mL subcutaneous solution 2013-07-16 12:36:5 0 Yes 40 mg, 0.8 ml, SUB-Q, q2wk, monthly, 1 kit, Substituti on Allowed, KITmoncasper Niraj Oconnor Lactated Ringers Injection IV 1000 mL 2013-07-16 12:32:00 No Nisha Palacios 1,000 mL, Rate: 25 m l/hr, Infuse over: 40 hr, Route: IV, Dosing Weight 97.273 kg, Total Volume: 1,000, Start date: 07/16/13 7:32:00, Duration: 30 day, Stop date: 08/15/13 7:31:00 Niraj strong Taclonex 2013-07-10 13:58:11 Yes TOP , Daily, Substitution Allowed [facility] [place] 5/325 oral tablet 2013-07-10 13:57:53 Yes 1 tab, PO, BID, Substitution Allowed, Maintenance Jyotsna vt Elvin meloxicam 15 mg oral tablet 2013-07-10 13:57:42 Yes 15 mg, 1 tab, PO, Daily, Substitution Allowed [facility] aspirin 2013-07-10 13:57:25 Yes 81 mg, PO, Daily, Substitution Allowed [facility] Humira Pen 40 mg/0.8 mL subcutaneous solution 2013-07-10 13:57:1 1 Yes 40 mg, 0.8 ml, SUB-Q, q2wk, 1 kit, Substitution Allowed, KIT [facility] finasteride 5 mg oral tablet 2013-07-10 13:56:58 Yes 5 mg, 1 tab, PO, Daily, Substitution Allowed [facility] benazepril 2013-07-10 13:56:39 Yes 40 mg, PO, Daily, Substitution Allowed [facility] amLODipine 2013-07-10 13:56:25 Yes 5 mg, PO, Daily, Substitution Allowed [facility] atenolol-chlorthalidone 50 mg-25 mg oral tablet 2013-07-10 13:55 :57 Yes 1 tab, PO, Daily, Substitution Allowed, Maintenance [facility] Aleve 2013-07-10 13:55:14 Yes 220 mg , PO, BID, Substitution Allowed [facility] Amlodipine Besylate Amlodipine Besylate Yes 5 Daily [facility] Aspirin (Aspir-Low) 81 Mg TABLET. Aspirin (Aspir-Low) 81 Mg TABLET. Yes 81 Daily [facility] Atenolol/Chlorthalidone (Atenolol-Chlorthal 50-25 Tb) 1 Each TABLET Atenolol/Chlorthalidone (Atenolol-Chlorthal 50-25 Tb) 1 Each TABLET Yes Daily [facility] Betamet Diprop/Prop Gly (Betamethasone Dp Aug 0.05% Cr m) 15 Gm CREAM..G. Betamet Diprop/Prop Gly (Betamethasone Dp Jun 0.05% Crm) 15 Gm CREAM..G. Yes As Needed [facility] Ibuprofen Ibuprofen Yes 800 Daily as needed for Pain [facility] Lupron Lupron Yes Q4mos [facility] Omeprazole Omeprazole Yes 40 Daily CH I [facility] Otezla Otezla Yes 30 Twice A Day [facility] Potassium Chloride Potassium Chloride Yes 10 Da mili [facility] Benazepril Hcl Benazepril Hcl 2020-04-12 00:00:00 No 40 Daily [facility] Adalimumab (Humira) 40 Mg/0.8 Ml KIT Adalimumab (Humira) 40 Mg/0 .8 Ml KIT 2017-08-05 00:00:00 No Q2mos [facility] Vital Signs Vital Name Observation Time Observation Value Comments Source Body Temperature 2020-04-12 08:20:00 98.0 [degF] [facility] Weight 2020-04-11 02:35:00 216 [lb_av] [facility] BMI (Body Mass Index) 2020-04-11 02:35:00 30.1 kg/m2 [facility] Height 2019-04-24 14:10:00 180.34 cm [facility] Weight 2019-04-24 14:10:00 [facility] BMI Calculated 2019-04-24 14:10:00 Jyotsna Mares Heart Rate 2019-04-24 14:10:00 [facility] Temperature Oral (F) 2019-04-24 14:10:00 97.7 F [facility] Respitory Rate 2019-04-24 14:10:00 Jyotsna Mares Systolic (mm Hg) 2019-04-24 14:10:00 Jonathan rial Perry Diastolic (mm Hg) 2019-04-24 14:10:00 Mem orial Perry Temperature Oral (F) 2019-01-21 15:01:00 96.9 F [facility] Heart Rate 2019-01-21 15:01:00 [facility] Respitory Rate 2019-01-21 15:01:00 Memori al [facility] Weight 2019-01-21 15:01:00 [facility] Height 2019-01-21 15:01:00 180.34 cm [facility] BMI Calculated 2019-01-21 15:01:00 Memori al Perry Systolic (mm Hg) 2019-01-21 15:01:00 Jonathan rial Perry Diastolic (mm Hg) 2019-01-21 15:01:00 Mem orial Perry BMI Calculated 2018-10-15 16:04:00 Memori al [facility] Weight 2018-10-15 16:04:00 [facility] Height 2018-10-15 16:04:00 180.34 cm [facility] Temperature Oral (F) 2018-10-15 16:04:00 97.7 F [facility] Respitory Rate 2018-10-15 16:04:00 Memori al Perry Heart Rate 2018-10-15 16:04:00 [facility] Systolic (mm Hg) 2018-10-15 16:04:00 Jonathan rial Perry Diastolic (mm Hg) 2018-10-15 16:04:00 Mem orial Elvin Heart Rate 2018-07-18 14:08:00 [facility] Temperature Oral (F) 2018-07-18 14:08:00 97.0 F [facility] Respitory Rate 2018-07-18 14:08:00 Memori al [facility] Height 2018-07-18 14:08:00 180.34 cm [facility] Systolic (mm Hg) 2018-07-18 14:08:00 Jonathan rial Elvin Diastolic (mm Hg) 2018-07-18 14:08:00 Mem orial [facility] Weight 2018-07-18 14:08:00 [facility] BMI Calculated 2018-07-18 14:08:00 Memori al [facility] Weight 2018-04-28 15:54:00 [facility] Height 2018-04-28 15:54:00 180.34 cm [facility] BMI Calculated 2018-04-28 15:54:00 Memori al [facility] Systolic (mm Hg) 2018-04-28 15:54:00 Jonathan rial Perry Diastolic (mm Hg) 2018-04-28 15:54:00 Mem orial Elvin Temperature Oral (F) 2018-04-28 15:54:00 97.2 F [facility] Heart Rate 2018-04-28 15:54:00 [facility] Respitory Rate 2018-04-28 15:54:00 Memori al [facility] Weight 2018-04-11 14:45:00 [facility] BMI Calculated 2018-04-11 14:45:00 Memori al Perry Respitory Rate 2018-04-11 14:45:00 Memori al [facility] Height 2018-04-11 14:45:00 180.34 cm [facility] Temperature Oral (F) 2018-04-11 14:45:00 97.2 F [facility] Heart Rate 2018-04-11 14:45:00 [facility] Systolic (mm Hg) 2018-04-11 14:45:00 Jonathan rial Perry Diastolic (mm Hg) 2018-04-11 14:45:00 Mem orial [facility] Weight 2018-01-09 14:55:00 [facility] BMI Calculated 2018-01-09 14:55:00 Memori al [facility] Temperature Oral (F) 2018-01-09 14:55:00 97.1 F [facility] Respitory Rate 2018-01-09 14:55:00 Memori al Perry Heart Rate 2018-01-09 14:55:00 [facility] Systolic (mm Hg) 2018-01-09 14:55:00 Jonathan rial Perry Diastolic (mm Hg) 2018-01-09 14:55:00 Mem orial El[facility] Height 2018-01-09 14:55:00 180.34 cm [facility] Height 2017-12-10 21:07:00 180.34 cm [facility] BMI Calculated 2017-12-10 21:07:00 Memori al [facility] Weight 2017-12-10 21:07:00 [facility] Temperature Oral (F) 2017-12-10 21:07:00 97.9 F [facility] Heart Rate 2017-12-10 21:07:00 [facility] Respitory Rate 2017-12-10 21:07:00 Memori al Perry Systolic (mm Hg) 2017-12-10 21:07:00 Jonathan rial Perry Diastolic (mm Hg) 2017-12-10 21:07:00 Mem orial Elvin BMI Calculated 2017-10-11 15:34:00 Memori al [facility] Weight 2017-10-11 15:34:00 [facility] Height 2017-10-11 15:34:00 180.34 cm [facility] Respitory Rate 2017-10-11 15:34:00 Memori al Perry Heart Rate 2017-10-11 15:34:00 [facility] Systolic (mm Hg) 2017-10-11 15:34:00 Jonathan rial Perry Diastolic (mm Hg) 2017-10-11 15:34:00 Mem orial [facility] Temperature Oral (F) 2017-10-11 15:34:00 97.5 F [facility] Diastolic (mm Hg) 2013-07-16 16:00:00 Mem orial Perry Systolic (mm Hg) 2013-07-16 16:00:00 Jonathan rial Elvin Systolic (mm Hg) 2013-07-16 15:45:00 Jonathan rial Perry Diastolic (mm Hg) 2013-07-16 15:45:00 Mem orial Elvin Systolic (mm Hg) 2013-07-16 15:30:00 Jonathan rial Perry Diastolic (mm Hg) 2013-07-16 15:30:00 Mem orial Perry Respitory Rate 2013-07-16 14:30:00 Memori al El[facility] Respitory Rate 2013-07-16 14:15:00 Memori al Perry Heart Rate 2013-07-16 11:15:00 [facility] Height 2013-07-10 13:48:00 180.34 cm [facility] Weight 2013-07-10 13:48:00 [facility] Heart Rate 2013-07-10 13:48:00 [facility] Respitory Rate 2013-07-10 13:48:00 Memori al [facility] Temperature Oral (F) 2013-07-10 13:48:00 97.6 F [facility] Procedures Procedure Date / Time Performed Performing Clinician [facility] e Procedure on prostate 2010-11-04 00:00:00 Jyotsna al Perry Prostatectomy 2010-11-04 00:00:00 [facility] Biopsy of prostate [facility] Cataract surgery<sup>1</sup> Mem orial Perry Cryotherapy<sup>2</sup> [facility] Procedure on knee<sup>3, 4</sup> [facility] Plan of Care Planned Activity Planned Date Details Comments Source Instructions Angioedema [facility] Instructions Diabetes and Diet [facility] Instructions Hypokalemia [facility] Encounters Start Date/Time End Date/Time Encounter Type Admission Type Attendi [facility] Care Department Encounter ID Source 2020-04-11 06:43:00 2020-04-12 10:20:00 Discharged Inpatient [facility] [id number] [facility] 2019-05-13 14:46:06 2019-05-14 23:59:59 Outpatient [facility] [id number] 2019-04-24 09:15:00 2019-04-24 23:59:59 [facility] [id number] 2019-01-21 10:15:00 2019-01-21 23:59:59 Outpatient Genet T[facility]akaren Castillo [facility] [id number] 2019-01-12 12:01:00 2019-01-13 23:59:59 Outpatient [facility] [id number] 2018-10-15 10:00:00 2018-10-15 23:59:59 [facility] [id number] 2018-07-18 09:00:00 2018-07-18 23:59:59 Outpatient Genet T[facility]akaren Castillo [facility] [id number] 2018-04-28 11:00:00 2018-04-28 23:59:59 [facility] [id number] 2018-04-11 09:30:00 2018-04-11 23:59:59 Outpatient Genet T[facility]akaren Castillo [facility] [id number] 2018-01-23 15:35:00 2018-01-24 23:59:59 Outpatient [facility] [id number] 2017-12-16 14:54:00 2018-01-14 23:59:00 Outpatient Marcello Newton [id number] 2018-01-09 09:00:00 2018-01-09 23:59:59 Outpatient Kathe De León [facility] [id number] 2017-11-15 13:20:00 2017-12-14 23:59:00 Outpatient Marcello Newton [id number] 2017-12-10 15:00:00 2017-12-10 23:59:59 Outpatient Kateh De León [facility] [id number] 2017-10-15 11:50:00 2017-11-13 23:59:00 Outpatient Marcello Newtone [id number] 2017-10-15 11:50:00 2017-11-13 23:59:00 Outpatient Marcello Newton [id number] 2017-10-11 09:30:00 2017-10-11 23:59:59 Outpatient Kathe De León [facility] [id number] 2016-10-25 13:47:00 2016-11-23 23:59:00 Outpatient Marcello Newton [id number] 2016-09-21 07:50:00 2016-10-20 23:59:00 Outpatient Marcello Newtone [id number] 2016-08-16 07:53:00 2016-08-16 23:59:00 Outpatient Marcello Newton [facility] [id number] 2013-10-07 09:00:00 2013-11-05 23:59:00 Outpatient MHIE MHIE [id number] [facility] 2013-09-07 10:45:00 2013-10-06 23:59:00 Outpatient MHIE MHIE [id number] [facility] 2013-08-03 13:36:00 2013-09-01 23:59:00 Outpatient MHIE MHIE [id number] [facility] 2013-08-03 13:36:00 2013-09-01 23:59:00 Outpatient MHIE MHIE [id number] [facility] 2013-08-03 13:36:00 2013-09-01 23:59:00 Outpatient MHIE MHIE [id number] [facility] 2013-08-03 13:36:00 2013-09-01 23:59:00 Outpatient MHIE MHIE [id number] [facility] 2013-08-03 13:36:00 2013-09-01 23:59:00 Outpatient MHIE MHIE [id number] [facility] 2013-08-03 13:36:00 2013-09-01 23:59:00 Outpatient MHIE MHIE [id number] [facility] Results Test Description Test Time Test Comments Results Result Comments Source Serum or plasma sodium measurement (moles/volume) 2020-04-12 04:50:00 Test Item Sodium Level (test code = 2951-2) 141 136-145 [facility] potassium [facility] (moles/volume)2020-04-12 04:50:00* Test Item Value Reference Range Interpretation Comments Potassium Level (test code = 2823-3) 3.8 3.5-5.1 [facility] chloride measurement (moles/volume)2020-04-12 04:50:00* Test Item Value Reference Range Interpretation Comments Chloride Level (test code = 2075-0) 107 98-107 [facility] plasma carbon dioxide, total measurement (moles/volume)2020-04-12 04:50:00* Test Item Value Reference Range Interpretation Comments Carbon Dioxide Level (test code = 2028-9) 22 22-29 [facility] plasma anion auj2837-55-51 04:50:00* Test Item Value Reference Range Interpretation Comments Anion Gap (test code = 52828-8) 15.8 8-16 [facility] urea nitrogen measurement (mass/volume)2020-04-12 04:50:00* Test Item Value Reference Range Interpretation Comments Blood Urea Nitrogen (test code = 3094-0) 21 7-26 [facility] plasma creatinine measurement (mass/volume)2020-04-12 04:50:00* Test Item Value Reference Range Interpretation Comments Creatinine (test code = 2160-0) 0.96 0.72-1.25 [facility] plasma urea nitrogen/creatinine mass omepz8087-92-21 04:50:00* Test Item Value Reference Range Interpretation Comments BUN/Creatinine Ratio (test code = 3097-3) 22 6-25 [facility] StationEstimated glomerular filtration rate (GFR) bayqqivbsaudc4430-15-45 04:50:00* Test Item Value Reference Range Interpretation Comments Estimat Glomerular Filtration Rate (test code = 345870170) > 60 >60 Ranges were taken from the National Kidney Disease Education Program and the [facility] Kid[facility] Foundation literature.Reference ranges:60 or greater: Wnfqkq56-66 ( for 3 consecutive months): Chronic kidney disease 15 or less: Kidney failureB[facility] StationGlucose xstmtrhhkmg2210-56-78 04:50:00* Test Item Value Reference Range Interpretation Comments Glucose Level (test code = NIL6297) 132 74-118 [facility] plasma calcium measurement (mass/volume)2020-04-12 04:50:00* Test Item Value Reference Range Interpretation Comments Calcium Level (test code = 70878-0) 10.6 8.4-10.2 [facility] StationCapillary blood glucose measurement by glucometer (mass/volume)2020-04-11 20:39:00* Test Item Value Reference Range Interpretation Comments Bedside Glucose (test code = 82193-8) 161 70-120 Meter ID: [id number] [facility] & [facility] StationBlood leukocytes automated count (number/volume)2020-04-11 02:45:00* Test Item Value Reference Range Interpretation Comments White Blood Count (test code = 6690-2) 10.14 4.8-10.8 [facility] StationBlood erythrocytes automated count (number/volume)2020-04-11 02:45:00* Test Item Value Reference Range Interpretation Comments Red Blood Count (test code = 789-8) 4.58 4.3-5.7 [facility] StationBlood hemoglobin measurement (moles/volume)2020-04-11 02:45:00* Test Item Value Reference Range Interpretation Comments Hemoglobin (test code = 28038-3) 12.8 14.0-18.0 [facility] StationAutatrium health university cityed blood hematocrit (volume fraction)2020-04-11 02:45:00* Test Item Value Reference Range Interpretation Comments Hematocrit (test code = 4544-3) 38.6 38.2-49.6 [facility] StationAutomated erythrocyte mean corpuscular hetpxb1460-19-00 02:45:00* Test Item Value Reference Range Interpretation Comments Mean Corpuscular Volume (test code = 787-2) 84.3 81-99 [facility] StationAutomated erythrocyte mean corpuscular hemoglobin (mass per erythrocyte)2020-04-11 02:45:00* Test Item Value Reference Range Interpretation Comments Mean Corpuscular Hemoglobin (test code = 785-6) 27.9 28-32 [facility] StationAutomated erythrocyte mean corpuscular hemoglobin concentration measurement (mass/volume)2020-04-11 02:45:00* Test Item Value Reference Range Interpretation Comments Mean Corpuscular Hemoglobin Concent (test code = 786-4) 33.2 31-35 [facility] StationRDW UwuLc-Xcr6419-50-08 02:45:00* Test Item Value Reference Range Interpretation Comments Red Cell Distribution Width (test code = 74631-0) 13.4 11.7 -14.4 [facility] StationAutomated blood platelet count (count/volume)2020-04-11 02:45:00* Test Item Value Reference Range Interpretation Comments Platelet Count (test code = 777-3) 280 140-360 [facility] StationAutomated blood segmented neutrophil count as percentage of total rxnmmbnibv7480-76-97 02:45:00* Test Item Value Reference Range Interpretation Comments Neutrophils (%) (Auto) (test code = 96439-4) 67.5 38.7-80.0 [facility] StationAutomated blood lymphocyte count as percentage ot total glzgjpllzi5714-30-03 02:45:00* Test Item Value Reference Range Interpretation Comments Lymphocytes (%) (Auto) (test code = 736-9) 21.5 18.0-39.1 [facility] StationAutomated blood monocyte count as percentage of total jlgibpdpxd3599-56-47 02:45:00* Test Item Value Reference Range Interpretation Comments Monocytes (%) (Auto) (test code = 5905-5) 7.4 4.4-11.3 [facility] StationAutomated blood eosinophil count as percentage of total mpozuvbzsf4501-29-60 02:45:00* Test Item Value Reference Range Interpretation Comments Eosinophils (%) (Auto) (test code = 713-8) 2.6 0.0-6.0 [facility] StationAutomated blood basophil count as percentage of total iutkxxexmd3998-01-58 02:45:00* Test Item Value Reference Range Interpretation Comments Basophils (%) (Auto) (test code = 706-2) 0.6 0.0-1.0 [facility] StationFluoroscopic procedure less than one hour dxqdqziq2210-79-18 02:45:00* Test Item Value Reference Range Interpretation Comments IM GRANULOCYTES % (test code = IM GRANULOCYTES %) 0.4 0.0- 1.0 [facility] StationAutomated blood neutrophil count 2020-04-11 02:45:00* Test Item Value Reference Range Interpretation Comments Neutrophils # (Auto) (test code = 751-8) 6.9 2.1-6.9 [facility] StationBlood lymphocytes count (number/volume) 2020-04-11 02:45:00* Test Item Value Reference Range Interpretation Comments Lymphocytes # (Auto) (test code = 34965-4) 2.2 1.0-3.2 [facility] StationBlood monocytes automated count (number/volume)2020-04-11 02:45:00* Test Item Value Reference Range Interpretation Comments Monocytes # (Auto) (test code = 742-7) 0.8 0.2-0.8 [facility] StationAutomated blood eosinophil count 2020-04-11 02:45:00* Test Item Value Reference Range Interpretation Comments Eosinophils # (Auto) (test code = 711-2) 0.3 0.0-0.4 [facility] StationAutomated blood basophil count (count/volume)2020-04-11 02:45:00* Test Item Value Reference Range Interpretation Comments Basophils # (Auto) (test code = 704-7) 0.1 0.0-0.1 [facility] StationFluoroscopic procedure less than one hour jdzndflo1292-41-46 02:45:00* Test Item Value Reference Range Interpretation Comments Absolute Immature Granulocyte (auto (david t code = Absolute Immature Granulocyte (auto) 0.04 0-0.1 [facility] StationPhosphorus ftojyjmjkuy6146-18-41 02:45:00 * Test Item Value Reference Range Interpretation Comments Phosphorus Level (test code = MRL9122) 3.3 2.3-4.7 [facility] magnesium measurement (mass/volume)2020-04-11 02:45:00* Test Item Value Reference Range Interpretation Comments Magnesium Level (test code = 48906-0) 1.7 1.3-2.1 [facility]er[facility] or plasma creatine kinase measurement (enzymatic activity/volume)2020-04-11 02:45:00* Test Item Value Reference Range Interpretation Comments Creatine Kinase (test code = 2157-6) 66 30-200 [facility]er[facility] or plasma creatine kinase MB measurement (mass/volume)2020-04-11 02:45:00* Test Item Value Reference Range Interpretation Comments Creatine Kinase MB (test code = 12676-2) 0.80 0-5.0 [facility] StationTroponin I measurement by highly sensitive enzyme yacjimbksss7983-54-42 02:45:00* Test Item Value Reference Range Interpretation Comments Troponin I (test code = 21517-4) < 0.001 0-0.300 [facility]er[facility] or plasma thyrotropin measurement by detection limit <= 0.005 miu/l (units/volume)2020-04-11 02:45:00* Test Item Value Reference Range Interpretation Comments Thyroid Stimulating Hormone (TSH) (test code = 78441-0) 1.029 0.350-4.940 [facility] StationCHEMISTRY2013-09-06 14:30:003.9[facility] SzlmreeDWSXJCEWU8758-50-35 14:30:80023Lmosldza NywcbgoBAAUXJNSS4335-04-10 14:30:40378Yeqrbknv XzapgydSYYMTAJES7303-74-43 14:30:0076[facility] KUEINZEIO4738-47-72 14:30:008.8[facility] QfyrvyrVNUJTARFL6295-32-77 14:30:001.0 [facility] JiblkzjQRMFTAVEY9260-44-18 14:30:0029[facility]annCHEMISTRY 2013-07-10 14:30:09795Vfhwozjx LesnrftYJINKMCRX4229-29-27 14:30:0020[facility] GaqgydmMMSUCATOY1643-66-18 14:30:0012.9[facility] FkvndbiFAPGTPMFXX4856-98-47 14:30:006.3[facility] MspcyuaWVBWPXEEBJ1119-03-95 14:30:000.4[facility] JIIDNWPKDT8000-17-85 14:30:001.1[facility] PesxlpxQQMSOOUOUW3641-88-98 14:30:009.7 [facility] RhoapgwLAIHYXFTDO6695-67-68 14:30:000.0[facility]annHEMATOLOGY 2013-07-10 14:30:000.1[facility] XooujazGECVHENAZH6661-79-90 14:30:000.9[facility] TelhpafSVRWIJXERR6531-30-87 14:30:002.0[facility] EptllaaIWRTTXGKNS1190-72-84 14:30:0021.1[facility] WxaxyosAFNTEQBPRQ5051-28-60 14:30:0067.7[facility] OEDATYBTPX7160-75-03 14:30:000.95[facility] WzszmkkJJRSTCQYLH3302-72-59 14:30:00* Test Item Value Reference Range Interpretation Comments PTT (test code = PTT) 31.9 s 22.9-35.8 N [facility] RedoeswGOGPESJNDC7373-21-05 14:30:00* Test Item Value Reference Range Interpretation Comments PT (test code = PT) 12.6 s 12.0-14.7 N [facility] OvwnkbzJYTJORPTPE6921-05-66 14:30:007.8[facility]annHEMATOLOGY 2013-07-10 14:30:0033.2[facility] EfosoigNEIAPEJMSX7969-10-06 14:30:0085.8[facility] GjmsumcGJWOPJOTSZ0296-61-14 14:30:00* Test Item Value Reference Range Interpretation Comments MCH (test code = MCH) 28.4 pg 27.0-31.0 N [facility] GcqecsnKUVRMLMRHI2401-51-50 14:30:0038.2[facility]annHEMATOLOGY 2013-07-10 14:30:0014.0[facility] XevszqaCWJZRDAJLD8288-63-11 14:30:004.45[facility] QajsopxMLFAFVIAVW6438-34-32 14:30:009.3[facility] EseplctSGKTDTLFYA0252-36-22 14:30:0012.7[facility] HpurcorVBSDEJOLZM5424-29-11 14:30:50814Bauvzlsk HermannKNEE LEFT 1-2 VIEWS [place] [address] Patient Name: ARLENE GONZALEZ MR #: [id number] : 1945 Age/Sex: 72/M Req #: [id number] Adm Physician: MARCELLO NEWTON MD Ordered by: MARCELLO NEWTON MD Report #: [id number] Location: MED/SURG Room/Bed: 100-1 Procedure: [id number] DX/KNEE LEFT 1-2 VIEWS Exam Date: 09/09/17 [...] anatomic alignment. Joseph Ramirez M.D. Dictated by: Jospeh Ramirez M.D. on 09/09/2017 at 18:31 Electronically approved by: Joseph Ramirez M.D. on 09/09/2017 at 18: 31 Dictated By: LEOLA RAMIREZ MD, MD 30 Transcribed By: SHANIQUA on 09/09/171830 COPY TO: MARCELLO NEWTON MD Stress Test - Treadmill ONLY [place] [address] Patient Name : ARLENE GONZALEZ MR #: [id number] : 1945 Age/Sex: 72/M Adm Physi abimbola : MARY HERNANDEZ MD Admit Date : 08/05/17 Location : [facility]Bed : [facility] 1781 REPORT: Cardiology Report DATE OF STUDY: [...] ities. 3. Ejection fraction is 65%. Job#: [id number] Signature Date Dic tated By: ADARSH BRADLEY MD Transcribed By: RICCO on 08/07/17 < Electronically signed by ADARSH BRADLEY MD><<Signature on File>>08/12/17 3496 COPY TO: CHEST 2 VIEWS [place] [address] Patient Name: ARLENE GONZALEZ MR #: [id number] : 1945 Age/Sex: 72/M Req #: [id number] [facility] Physician: Ordered by: TIFFANIE AGEE MD Report #: [id number] Location: ER Room/Bed: Procedure: [id number] DX/CHEST 2 VIEWS Exam Date: Exam Time: [...]
[2020-06-07 09:55] LABS: BASOPHILS % 0.1 % (0.0-1.0); HEMOGLOBIN 15.5 g/dL (14.0-18.0); LYMPHOCYTES # (AUTO) 0.9 (1.0-3.2); MEAN CORPUSCULAR HEMOGLOBIN 27.7 pg (28-32); MEAN CORPUSCULAR HGB CONC 34.4 g/dL (31-35); MEAN CORPUSCULAR VOLUME 80.4 fL (81-99); MONOCYTES # (AUTO) 1.1 (0.2-0.8); MONOCYTES % 12.9 % (4.4-11.3); NEUTROPHILS # (AUTO) 6.3 (2.1-6.9); NEUTROPHILS % 74.2 % (38.7-80.0); PLATELET COUNT 267 x10e3/uL (140-360); RED CELL DISTRIBUTION WIDTH 13.2 % (11.7-14.4)
[2020-06-07] MEDS ORDERED: SODIUM CHLORIDE 0.9% 1000ML 1,000 ML IV SCH (10:00)
[2020-06-07 10:19] LABS: ALBUMIN/GLOBULIN RATIO 0.7 (0.8-2.0); ANION GAP 18.9 mmol/L (8-16); CALCIUM 9.3 mg/dL (8.4-10.2); CREATININE, SERUM 1.32 mg/dL (0.72-1.25)
[2020-06-07 10:21] LABS: POTASSIUM 2.9 mmol/L (3.5-5.1)
--- NOTE | 2020-06-07 10:23 | Diagnostic Imaging Report ---
Examination: CT BRAIN WO CONTRAST History:Weakness. Comparison studies:None Technique: Axial images were obtained from the skull base to the vertex. Coronal and sagittal images reconstructed from the axial data. Dose modulation, iterative reconstruction, and/or weight based adjustment of the mA/kV was utilized to reduce the radiation dose to as low as reasonably achievable. Intravenous contrast: None Findings: Scalp: No abnormalities. Bones: No fractures, blastic or lytic lesions. Brain sulci: Mild generalized volume loss for age. Ventricles: No hydrocephalus. Extra-axial space: No abnormalities. Parenchyma: No masses, hemorrhage, or acute or chronic cortical based vascular insults.. Sellar/suprasellar region: No abnormalities. Craniocervical junction: Patent foramen magnum. No Chiari one malformation. Incidental findings: Atherosclerotic calcification of the cavernous and supraclinoid internal carotid arteries. Impression: No acute intracranial abnormalities. Mild generalized volume loss for age. Signed by: Dr. Farrah Rob M.D. on 06/07/2020 10:20 AM
--- NOTE | 2020-06-07 10:33 | Diagnostic Imaging Report ---
X-ray chest AP portable Comparison: None History: Weakness, decreased appetite, diarrhea Findings: Central airways unremarkable. Heart size normal. Atherosclerotic aorta. No pleural effusion. No pneumothorax. Patchy increased opacity in the left mid to lower lung zone. Degenerative changes of the thoracic spine and visualized skeleton including a possible Bankart injury of the left shoulder. Upper abdomen unremarkable. Impression: Increased opacity with interstitial prominence in the left mid to lower lung zone. A focal process such as pneumonitis/pneumonia cannot be ruled out. Clinical correlation is recommended. Signed by: Andry Denise MD on 06/07/2020 10:29 AM
[2020-06-07 10:37] LABS: MAGNESIUM 1.8 MG/DL (1.3-2.1); PHOSPHORUS 3.5 MG/DL (2.3-4.7)
[2020-06-07] MEDS ORDERED: POTASSIUM CHLORIDE 20 MEQ TAB CR PO STA (10:38)
[2020-06-07] MEDS ORDERED: POTASSIUM CHLORIDE 20MEQ/100ML 200 ML IV ONE (10:45)
[2020-06-07 10:50] LABS: BILIRUBIN,URINE SMALL (NEGATIVE); CLARITY,URINE CLEAR (CLEAR); COLOR,URINE YELLOW (YELLOW); KETONES,URINE NEGATIVE (NEGATIVE); LEUKOCYTE ESTERASE ,URINE NEGATIVE (NEGATIVE); NITRITE,URINE NEGATIVE (NEGATIVE); PROTEIN,URINE DIPSTICK 2+ (NEGATIVE); URINE UROBILINOGEN 0.2 mg/dL (0.2 - 1)
[2020-06-07 10:57] LABS: THYROID STIMULATING HORMONE 1.082 uIU/mL (0.350-4.940)
[2020-06-07] MEDS ORDERED: BENZONATATE 100 MG CAP PO PRN (11:00)
[2020-06-07] MEDS ORDERED: AZITHROMYCIN 500MG/NS 250 ML 250 ML IV ONE (11:00)
[2020-06-07 11:01] LABS: BACTERIA,URINE MANY /HPF; EPITHELIAL CELLS,URINE MODERATE /LPF; RBC,URINE 0-5 /HPF (0-5); WBC,URINE (MAN) 0-5 /HPF (0-5)
[2020-06-07 11:03] LABS: TRANSITIONAL EPI CELLS,URINE FEW
--- NOTE | 2020-06-07 11:05 | Emergency Department Note ---
History of Present Illnes History of Present Illness Chief Complaint: General Medicine Complaints History of Present Illness This is a 75 year old male CC of X 3 DAYS WEAKNESS, DECREASED APPETITE, DIARRHEA. FALLS X 2 LAST NIGHT. DENIES HITTING HEAD. C/O OF RIGHT RIB AREA. NO NOTED TRAUMA. O2SAT 93. PATIENT WEARS HOME OXYGEN 2L/NC PRN. TESTED COVID + MAY 24 . 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 Any updates have been documented here. Past Medical History Recent Fever: No Clinical Suspicion of Infectio: No New/Unexplained Change in Ment: No Past Medical History: Hypertension, Diabetes Other Medical History: PROSTATE CANCER Other Surgery: TURP? ROTATOR CUFF Social History Smoking Cessation: Former smoker Counseling Performed: No Alcohol Use: Daily Any Illegal Drug Use: No Other Last Tetanus: UNK Any Pre-Existing Lines (PICC,: No Review of Systems Review of Systems Constitutional: Reports no symptoms, Reports weakness EENTM: Reports no symptoms Cardiovascular: Reports no symptoms Respiratory: Reports no symptoms Gastrointestinal: Reports no symptoms, Reports other (Decreased appetite) Genitourinary: Reports no symptoms Musculoskeletal: Reports no symptoms Integumentary: Reports no symptoms Neurological: Reports no symptoms Psychological: Reports no symptoms Endocrine: Reports no symptoms Hematological/Lymphatic: Reports no symptoms Physical Exam Related Data Allergies: Coded Allergies: atorvastatin (Verified Allergy, Severe, ANGIOEDEMA, 04/11/20) hydrocodone (Verified Allergy, Mild, HALLICINATIONS, 08/27/16) Triage Vital Signs Vital Signs Date Time Temp Pulse Resp B/P (MAP) Pulse Ox O2 Delivery O2 Flow Rate FiO2 06/07/20 09:28 100.1 116 18 152/92 94 Room Air 06/07/20 09:41 2.0 Vital signs reviewed: Yes Physical Exam CONSTITUTIONAL Constitutional: Present well-developed, Present well-nourished HENT HENT: Present normocephalic, Present atraumatic, Present oropharynx clear/moist, Present mucosae dry, Present nose normal HENT L/R: Present left ext ear normal, Present right ext ear normal EYES Eyes: Reports PERRL, Reports conjunctivae normal NECK Neck: Present ROM normal PULMONARY Pulmonary: Present effort normal, Present breath sounds normal CARDIOVASCULAR Cardiovascular: Present regular rhythm, Present heart sounds normal, Present capillary refill normal, Present normal rate, Present tachycardia GASTROINTESTINAL Abdominal: Present soft, Present nontender, Present bowel sounds normal GENITOURINARY Genitourinary: Present exam deferred SKIN Skin: Present warm, Present dry MUSCULOSKELETAL Musculoskeletal: Present ROM normal NEUROLOGICAL Neurological: Present alert, Present oriented x 3, Present no gross motor or sensory deficits PSYCHOLOGICAL Psychological: Present mood/affect normal, Present judgement normal Results Laboratory Result Diagram: 06/07/20 0935 06/07/20 0935 Laboratory Laboratory Tests Test 06/07/20 10:33 06/07/20 09:35 White Blood Count 8.51 x10e3/uL (4.8-10.8) Red Blood Count 5.60 x10e6/uL (4.3-5.7) Hemoglobin 15.5 g/dL (14.0-18.0) Hematocrit 45.0 % (38.2-49.6) Mean Corpuscular Volume 80.4 fL (81-99) Mean Corpuscular Hemoglobin 27.7 pg (28-32) Mean Corpuscular Hemoglobin Concent 34.4 g/dL (31-35) Red Cell Distribution Width 13.2 % (11.7-14.4) Platelet Count 267 x10e3/uL (140-360) Neutrophils (%) (Auto) 74.2 % (38.7-80.0) Lymphocytes (%) (Auto) 11.0 % (18.0-39.1) Monocytes (%) (Auto) 12.9 % (4.4-11.3) Eosinophils (%) (Auto) 0.0 % (0.0-6.0) Basophils (%) (Auto) 0.1 % (0.0-1.0) Neutrophils # (Auto) 6.3 (2.1-6.9) Lymphocytes # (Auto) 0.9 (1.0-3.2) Monocytes # (Auto) 1.1 (0.2-0.8) Eosinophils # (Auto) 0.0 (0.0-0.4) Basophils # (Auto) 0.0 (0.0-0.1) Absolute Immature Granulocyte (auto 0.15 x10e3/uL (0-0.1) Sodium Level 135 mmol/L (136-145) Potassium Level 2.9 mmol/L (3.5-5.1) Chloride Level 95 mmol/L (98-107) Carbon Dioxide Level 24 mmol/L (22-29) Anion Gap 18.9 mmol/L (8-16) Blood Urea Nitrogen 25 mg/dL (7-26) Creatinine 1.32 mg/dL (0.72-1.25) Estimat Glomerular Filtration Rate 53 ML/MIN (60-) BUN/Creatinine Ratio 19 (6-25) Glucose Level 133 mg/dL (74-118) Calcium Level 9.3 mg/dL (8.4-10.2) Total Bilirubin 0.9 mg/dL (0.2-1.2) Aspartate Amino Transf (AST/SGOT) 56 IU/L (5-34) Alanine Aminotransferase (ALT/SGPT) 78 IU/L (0-55) Alkaline Phosphatase 60 IU/L (40-150) Total Protein 7.3 g/dL (6.5-8.1) Albumin 3.0 g/dL (3.5-5.0) Globulin 4.3 g/dL (2.3-3.5) Albumin/Globulin Ratio 0.7 (0.8-2.0) Lab results reviewed: Yes Imaging Imaging results reviewed: Yes Diagnostics Tests Diagnostic test(s) reviewed: Yes Procedures 12 Lead ECG Interpretation ECG Interpretation : Wallpaper Printer: Interpreted by ED physician Date: Jun 07, 2020 Rhythm: sinus tachycardia Rate: tachycardia BPM: 112 QRS axis: normal ST segments normal: Yes T waves flattening: V4, V5, V6 Assessment & Plan Medical Decision Making MDM 75-year-old man presenting for weakness and frequent falls. Patient states he is recently chronic virus positive and has had decreased appetite. Additionally he has been having diarrhea. Exam shows dry mucous membranes and some mild tachycardia but is otherwise unremarkable. After workup for testing of 2.9 and chest x-ray which shows pneumonia. He is started on ceftriaxone and azithromycin. Sepsis suspected at time of antibiotic order. Lactic acid was repeated if initial >2 30cc/kg crystalloid bolus not indicated. Was given 1L NS Patient will require [facility]. Discussed patient with Dr. WILCOX who has agreed to accept the patient. Patient is appropriate for transfer. Reassessment Reassessment time: 11:17 Reassessment Well appearing, NAD Assessment & Plan Final Impression: (1) Pneumonia (2) Hypokalemia Depart Disposition: TRANS TO OTHER [facility] FAC[facility] Last Vital Signs Date Time Temp Pulse Resp B/P (MAP) Pulse Ox O2 Delivery O2 Flow Rate FiO2 06/07/20 09:41 95 Nasal Cannula 2.0 06/07/20 09:28 100.1 116 18 Home Meds Reported Medications Potassium Chloride (POTASSIUM CHLORIDE) 10 Meq Tab.er.prt, 10 MEQ PO DAILY, #90 TAB 04/12/20 Betamet Diprop/Prop Gly (BETAMETHASONE DP AUG 0.05% CRM) 15 Gm Cream..g., TOP PRN 09/05/17 [Otezla] No Conflict Check, 30 MG PO BID 09/05/17 Omeprazole (OMEPRAZOLE) 40 Mg Capsule.dr, 40 MG PO DAILY 09/05/17 Aspirin (ASPIR-LOW) 81 Mg Tablet.dr, 81 MG PO DAILY 09/05/17 Ibuprofen (IBUPROFEN) 400 Mg Tablet, 800 MG PO DAILY PRN for PAIN, TAB 08/05/17 [Lupron] No Conflict Check, IM Q4MOS 08/27/16 Amlodipine Besylate (AMLODIPINE BESYLATE) 5 Mg Tablet, 5 MG PO DAILY, #30 TAB 08/27/16 Atenolol/Chlorthalidone (ATENOLOL-CHLORTHAL 50-25 TB) 1 Each Tablet, PO DAILY 08/27/16 Medications in the ED Sodium Chloride 1,000 ml @ 0 mls/hr Q0M IV Last administered on 06/07/20at 10:30; Admin Dose 1,000 MLS/HR; Start 06/07/20 at 10:00; Stop 07/07/20 at 09:59 SHE RINCON MD Jun 07, 2020 10:46
[2020-06-07] MEDS ORDERED: ACETAMINOPHEN 325 MG TAB PO ONE (11:15)
[2020-06-07] MEDS ORDERED: CEFTRIAXONE SOD 2 GM/NS 100 ML 100 ML IV ONE (11:15)
--- NOTE | 2020-06-07 13:45 | NUR ---
PATIENTS NOTIFIED REGARDING TRANSFER REPORT CALLED TO LAUREN Anglin
== END 2020-06-07 13:49 | disposition other institution (70) ==
LOC: ER 09:20
DX: J18.9 Pneumonia, unspecified organism (principal); R50.9 Fever, unspecified; E87.6 Hypokalemia; E11.65 Type 2 diabetes mellitus with hyperglycemia; R53.1 Weakness; R19.7 Diarrhea, unspecified; W18.30XA Fall on same level, unspecified, initial encounter; R07.81 Pleurodynia; I10 Essential (primary) hypertension; Z85.46 Personal history of malignant neoplasm of prostate
CPT/HCPCS: 36415; 70450; 71045; 80053; 81001; 83605; 83735; 83880; 84100; 84443; 84484; 85025; 87040; 93005; 99285; J0456; J0696; J3480; J7030

== ENCOUNTER 2022-01-13 09:10 | Emergency (ER) | payer MEDICARE ==
[~2022-01-13] VITALS: Ht 180.3 cm; Wt 98.0 kg
[2022-01-13] MEDS ORDERED: FENTANYL CITRATE/PF 100MCG/2 ML INJ IV ONE ×3 (11:15→12:45)
[2022-01-13] MEDS ORDERED: MIDAZOLAM HCL 2 MG/2 ML VIAL ONE (12:07)
[2022-01-13] MEDS ORDERED: SODIUM CHLORIDE 0.9% 1000ML 1,000 ML ONE (12:07)
[2022-01-13] MEDS ORDERED: MIDAZOLAM HCL 2 MG/2 ML VIAL IV STA ×2 (12:36)
[2022-01-13] MEDS ORDERED: ULTRAM50 MG PO (13:47)
[2022-01-13 14:03] VITALS: BP 158/87
== END 2022-01-13 14:07 | disposition home or self-care (01) ==
LOC: ER 09:20
DX: S43.085A Other dislocation of left shoulder joint, initial encounter (principal); W18.31XA Fall on same level due to stepping on an object, initial encounter; Y93.01 Activity, walking, marching and hiking; Y92.008 Other place in unspecified non-institutional (private) residence as the place of occurrence of the external cause; I10 Essential (primary) hypertension; E11.9 Type 2 diabetes mellitus without complications; Z20.822 Contact with and (suspected) exposure to COVID-19; Z85.46 Personal history of malignant neoplasm of prostate
CPT/HCPCS: 23655; 70450; 71045; 72125; 73030; 99284; J2250; J3010; J7030; U0002

== ENCOUNTER 2022-05-24 14:42 | Observation (INO) | payer MEDICARE ==
[~2022-05-24] VITALS: Ht 180.3 cm; Wt 1017.9 kg
[~2022-05-24 14:42] MED LIST changes: +ULTRAM50 MG PO
[2022-05-24] MEDS ORDERED: EPINEPHRINE 0.3 MG/0.3 ML PEN.INJCTR IM STA (14:59)
[2022-05-24] MEDS ORDERED: FAMOTIDINE 20 MG/2 ML VIAL IV STA (14:59)
[2022-05-24] MEDS ORDERED: METHYLPREDNISOLONE SOD SUCC 125 MG/2ML VIAL IV ONE (15:00)
[2022-05-24] MEDS ORDERED: SODIUM CHLORIDE 0.9% 1000ML 1,000 ML IV ONE (15:00)
[2022-05-24] MEDS ORDERED: DIPHENHYDRAMINE HCL INJ 50 MG/ML VIAL IV ONE (15:00)
[2022-05-24] MEDS ORDERED: TRANEXAMIC ACID 1,000 MG/10 ML ML IV ONE (15:15)
[2022-05-24] MEDS ORDERED: EPINEPHRINE HCL 1:1000 1ML 1 MG/ML AMP ONE (15:25)
[2022-05-24] MEDS ORDERED: TRANEXAMIC ACID 10 ML ONE (15:25)
[2022-05-24] MEDS ORDERED: EPINEPHRINE HCL SYRINGE ONE (15:28)
[2022-05-24 15:29] LABS: BASOPHILS # (AUTO) 0.1 (0.0-0.1); BASOPHILS % 0.5 % (0.0-1.0); EOSINOPHILS # (AUTO) 0.2 (0.0-0.4); EOSINOPHILS % 1.9 % (0.0-6.0); HEMATOCRIT 37.4 % (38.2-49.6); HEMOGLOBIN 13.1 g/dL (14.0-18.0); LYMPHOCYTES # (AUTO) 3.1 (1.0-3.2); LYMPHOCYTES % 30.8 % (18.0-39.1); MEAN CORPUSCULAR HEMOGLOBIN 30.2 pg (28-32); MEAN CORPUSCULAR VOLUME 86.2 fL (81-99); MONOCYTES # (AUTO) 0.9 (0.2-0.8); MONOCYTES % 8.6 % (4.4-11.3); NEUTROPHILS # (AUTO) 5.9 (2.1-6.9); NEUTROPHILS % 57.9 % (38.7-80.0); PLATELET COUNT 269 x10e3/uL (140-360); RED BLOOD COUNT 4.34 x10e6/uL (4.3-5.7); RED CELL DISTRIBUTION WIDTH 12.5 % (11.7-14.4)
[2022-05-24] MEDS ORDERED: TRANEXAMIC ACID 1,000 MG in SODIUM CHLORIDE 0.9% 100 ML IV ONE (15:30)
[2022-05-24 15:53] LABS: ALBUMIN 3.5 g/dL (3.5-5.0); ANION GAP 14.6 mmol/L (8-16); CALCIUM 9.1 mg/dL (8.4-10.2); CREATININE, SERUM 0.97 mg/dL (0.72-1.25); POTASSIUM 3.6 mmol/L (3.5-5.1)
[2022-05-24] MEDS ORDERED: ONDANSETRON HCL INJ 2MG/ML 2ML 2 MG/ML VIAL IV PRN (16:45)
[2022-05-24] MEDS ORDERED: DIPHENHYDRAMINE HCL INJ 50 MG/ML VIAL IV PRN (16:45)
[2022-05-24] MEDS: FAMOTIDINE 20 MG/2 ML VIAL IV SCH (17:45)
[2022-05-24] MEDS ORDERED: DEXTROSE 50% SYRINGE 50 ML IV PRN (18:00)
[2022-05-24] MEDS ORDERED: METHYLPREDNISOLONE SOD SUCC 125 MG/2ML VIAL IV SCH (21:00)
[2022-05-24] MEDS: INSULIN LISPRO 100 UNIT/1 ML 3ML VIAL SQ SCH (21:20)
[2022-05-25 01:30] VITALS: BP 150/76
[2022-05-25 01:35] VITALS: BP 150/76
[2022-05-25 06:00] VITALS: BP 140/80
[2022-05-25] MEDS ORDERED: NOVOLOG100 UNIT/1 SC (07:40)
[2022-05-25] MEDS ORDERED: MEGESTROL ACETA20 MG PO (07:40)
[2022-05-25] MEDS ORDERED: BICALUTAMIDE50 MG PO (07:40)
[2022-05-25] MEDS ORDERED: NEURONTIN100 MG PO (07:40)
[2022-05-25] MEDS ORDERED: VITAMIN D3125 MCG (07:40)
[2022-05-25] MEDS ORDERED: LISINOPRIL2.5 MG PO (07:40)
[2022-05-25] MEDS ORDERED: LIPITOR20 MG PO (07:40)
[2022-05-25 08:00] VITALS: BP 141/84
[2022-05-25] MEDS: INSULIN LISPRO 100 UNIT/1 ML 3ML VIAL SQ SCH (08:00)
[2022-05-25] MEDS: FAMOTIDINE 20 MG/2 ML VIAL IV SCH (08:49)
[2022-05-25] MEDS ORDERED: AMLODIPINE BESYLATE 5 MG TAB PO ONE (09:45)
== END 2022-05-25 10:00 | disposition home or self-care (01) ==
LOC: ER 14:49 → ERHOLD 16:38 → MED/SURG 23:47
PROVIDERS: ADMIT Internal Medicine; ATTEND Internal Medicine
DX: T78.3XXA Angioneurotic edema, initial encounter (principal); T46.4X5A Adverse effect of angiotensin-converting-enzyme inhibitors, initial encounter; I10 Essential (primary) hypertension; E11.9 Type 2 diabetes mellitus without complications; Z85.46 Personal history of malignant neoplasm of prostate; Z88.5 Allergy status to narcotic agent; Z88.8 Allergy status to other drugs, medicaments and biological substances; Z79.4 Long term (current) use of insulin; E66.9 Obesity, unspecified; Z68.30 Body mass index [BMI] 30.0-30.9, adult; Z20.822 Contact with and (suspected) exposure to COVID-19
CPT/HCPCS: 0223U; 36415 ×2; 80053; 82948 ×2; 85025; 99284; G0378 ×2; J0171 ×2; J1200; J2930 ×2; J7030; J7050